=== PATIENT | female | born 1935 | race Caucasian/White ===

== ENCOUNTER 2017-01-27 20:39 | Inpatient (IN) | payer MEDICARE ==
[2017-01-27] MEDS ORDERED: Sodium Chloride 0.9% 1,000 ML IV STA ×2 (20:54→23:36)
[2017-01-27 21:13] LABS: BASO # 0.1 K/uL (0.0-0.2); BASO % 0.3 % (0.0-2.0); EOS # 0.1 K/uL (0.0-0.7); EOS % 0.5 % (0.0-4.0); HEMATOCRIT 40.5 % (34.0-47.0); LYMPH # 1.4 K/uL (1.0-4.3); LYMPH % 5.6 % (20.0-40.0); MEAN CORPUSCULAR HEMOGLOBIN 28.4 pg (27.0-31.0); MEAN CORPUSCULAR HGB CONC 31.5 g/dL (33.0-37.0); MEAN PLATELET VOLUME 7.4 fl (7.2-11.7); NEUT % 89.6 % (50.0-75.0); PLATELET COUNT 310 K/uL (130-400); RED CELL DISTRIBUTION WIDTH 15.6 % (11.5-14.5); WHITE BLOOD COUNT 24.6 K/uL (4.8-10.8)
[2017-01-27 21:22] LABS: BILIRUBIN,TOTAL 0.8 mg/dl (0.2-1.3); CALCIUM 10.1 mg/dL (8.4-10.2); POTASSIUM 4.3 MMOL/L (3.6-5.0); TOTAL PROTEIN 8.9 G/DL (6.3-8.2)
[2017-01-27 21:25] LABS: ALB/GLOB RATIO 1.3 (1.0-2.1)
[2017-01-27 21:58] LABS: TOTAL CELLS COUNTED 100
[2017-01-27 21:59] LABS: NEUTROPHIL 89 % (42-75)
--- NOTE | 2017-01-27 22:08 | ED PDOC ---
HPI: Abdomen Time Seen by Provider: 01/27/17 20:52 Chief Complaint (Nursing): Abdominal Pain Chief Complaint (Provider): epigastric pain, vomiting History Per: Patient, EMS History/Exam Limitations: no limitations Onset/Duration Of Symptoms: Hrs (1), Sudden Onset Outside of [place] travel?: No Current Symptoms Are (Timing): Better Context: Food Severity: Severe Location Of Pain/Discomfort: Epigastric Quality Of Discomfort: Sharp, Cramping Associated Symptoms: Nausea, Vomiting, Diarrhea, Loss Of Appetite, Back Pain Exacerbating Factors: None Alleviating Factors: None Last Bowel Movement: Today Additional Complaint(s): 81yo female c/o sudden onset epigastric abdominal pain associated w several episodes nonbloody vomiting, diarrhea and weakness. ALS paramedics responded found patient w pallor and mild diaphoresis, vomiting, weakness. Mildly hypotensive in field. EKG in field revealed aflutter. Abnormal Vaginal Bleeding: No Past Medical History Reviewed: Historical Data, Nursing Documentation, Vital Signs Vital Signs: Last Vital Signs Temp 97.7 F 01/27/17 20:42 Pulse 115 H 01/27/17 21:02 Resp 18 01/27/17 21:02 BP 110/66 01/27/17 21:02 Pulse Ox 97 01/27/17 23:41 - Medical History PMH: Atrial Fibrillation, CAD, CHF, COPD, HTN, Hypercholesterolemia, Hypothyroidism, Pneumonia Denies: Chronic Kidney Disease - Surgical History Surgical History: Pacemaker - Family History Family History: States: Unknown Family Hx - Living Arrangements Living Arrangements: Alone - Social History Current smoker - smoking cessation education provided: No (quit 20yrs ago) - Home Medications Home Medications: Ambulatory Orders Medication Instructions Recorded Arformoterol [Brovana] 1 puff IH BID 10/02/16 Calcium Carbonate [Calcium] 600 mg PO DAILY 10/02/16 Clonazepam [Klonopin] 5 mg PO DAILY 10/02/16 Dabigatran [Pradaxa] 75 mg PO BID 10/02/16 Levothyroxine [Synthroid] 1 tab PO DAILY 10/02/16 Losartan Potassium [Cozaar] 25 mg PO DAILY 10/02/16 Metoprolol Succinate [Toprol XL] 1.5 tab PO BID 10/02/16 Sulfamethoxazole/Trimethoprim 1 tab PO Q12 10/02/16 [Bactrim DS Tab] diltiaZEM [Cardizem] 360 mg PO DAILY 10/02/16 traZODone [Desyrel] 1 tab PO DAILY 10/02/16 Budesonide [Pulmicort Respules] 0.25 mg INH PRN PRN 01/27/17 Multivit-Min/FA/Lycopen/Lutein 1 tab PO DAILY 01/27/17 [Centrum Silver Tablet] Potassium Chloride [Klor-Con M10] 10 meq PO DAILY 01/27/17 Pravastatin Sodium [Pravachol] 20 mg PO DAILY 01/27/17 Spironolactone [Aldactone] 25 mg PO DAILY 01/27/17 Torsemide [Demadex] 20 mg PO DAILY 01/27/17 - Allergies Allergies/Adverse Reactions: Allergies Allergy/AdvReac Type Severity Reaction Status Date / Time No Known Allergies Allergy Verified 01/27/17 23:36 Review of Systems ROS Statement: Except As Marked, All Systems Reviewed And Found Negative Constitutional: Negative for: Fever, Chills Cardiovascular: Positive for: Chest Pain. Negative for: Palpitations Respiratory: Negative for: Cough, Shortness of Breath Gastrointestinal: Positive for: Nausea, Vomiting, Abdominal Pain, Diarrhea Genitourinary Female: Negative for: Dysuria, Frequency Musculoskeletal: Negative for: Arm Pain, Leg Pain Skin: Negative for: Lesions Neurological: Positive for: Dizziness. Negative for: Weakness, Numbness, Confusion, Headache Psych: Negative for: Anxiety, Depression Physical Exam - Reviewed Nursing Documentation Reviewed: Yes Vital Signs Reviewed: Yes - Physical Exam Appears: Positive for: Well, Non-toxic, No Acute Distress Head Exam: Positive for: ATRAUMATIC, NORMAL INSPECTION, NORMOCEPHALIC Skin: Positive for: Normal Color, Warm, DRY Eye Exam: Positive for: EOMI, Normal appearance, PERRL ENT: Positive for: Normal ENT Inspection Neck: Positive for: Normal, Painless ROM Cardiovascular/Chest: Positive for: Regular Rate, Rhythm Respiratory: Positive for: CNT, Normal Breath Sounds Gastrointestinal/Abdominal: Positive for: Bowel Sounds, Soft, Tenderness (+ epigastric and mid abd tenderness, neg murphys sign), Distended. Negative for: Guarding, Rebound Back: Positive for: Normal Inspection Extremity: Positive for: Normal ROM Neurologic/Psych: Positive for: Alert, Oriented. Negative for: Motor/Sensory Deficits - Laboratory Results Result Diagrams: 01/27/17 21:05 01/27/17 21:05 - ECG O2 Sat by Pulse Oximetry: 97 Pulse Ox Interpretation: Normal - Radiology X-Ray: Interpreted by Me X-Ray Interpretation: Other (chronic appearing changes when compared to 10/17) - Critical Care Total Time (In Min): 45 Comments: pt required immediate and sustained bedside attention given unstable vital signs , requiring multiple advanced diagnostics, stabilization and ICU admission Medical Decision Making Medical Decision Making: workup initiated for epigastric pain. EKG, bloodwork, IVF and antiemetic ordered. Had additional episode vomiting in ED. Abd US reveals gallstone in neck of GB. labs reviewed reveal leukocytosis and worsening renal function as compared to prior visit. Given leukocytosis, CT abd pelv ordered. Family updated on progress and results. FINDINGS: Lower thorax: The heart is enlarged.There is calcification of the mitral annulus.There is streak artifact from pacemaker leads. There is a hiatal hernia. There postsurgical changes in the gastroesophageal junction. There is a Port-A-Cath in the right chest wall. There is a small bore right chest tube, unchanged. There continues to be pleural and parenchymal thickening around the tube. There are fibrotic changes at the lung bases. There is continued nodular scarring in the lingula. There is a small granuloma at the right base. There is dependent atelectasis. ABDOMEN: Liver: unremarkable Gallbladder and bile ducts: unremarkable Pancreas: unremarkable Spleen: unremarkable Adrenals: There is adrenal there is a tiny nonobstructing left renal stone. There are no ureteral stones. Kidneys and ureters: See above. Stomach and bowel: Stomach is incompletely distended. Rotation is normal. Small bowel is dilated to the level of the mid or distal ileum. Distal and terminal ileum are decompressed. Exact site of transition is difficult to identify but appears to be in the low pelvis, images 47-59, series 601. Appendix is unremarkable. Terminal ileum is unremarkable. Colon is incompletely distended which limits evaluation. There is diverticulosis. Appendix: See stomach and bowel PELVIS: Bladder: unremarkable Reproductive: Uterus is atrophic. There are no adnexal masses. ABDOMEN and PELVIS: Intraperitoneal space:There is no free air.There is no significant fluid.There is no pathologic adenopathy. Bones/joints: There is a left hip prosthesis. OsteopeniaThere are degenerative changes in the osseus structures. There is compression fracture at T12. There is compression deformity L3. Soft tissues: There is a small fat containing umbilical hernia. Vasculature: There are vascular calcifications. Lymph nodes: There is no pathologic adenopathy. IMPRESSION: Small bowel obstruction with transition in the low pelvis; no CT findings of appendicitis or diverticulitis; Port-A-Cath in the right chest wall wwith small bore right chest tube, similar finding seen on the prior study; cardiomegaly and atherosclerotic disease; fibrotic changes in the lung bases; gallstones; no acute solid visceral abnormality Additional findings as described above. Thank you for allowing us to participate in the care of your patient. Dictated and Authenticated by: Nessa Lee MD 01/27/2017 11:14 PM Eastern Time ([place] & Jud Lactate 2.0, given clinical and diagnostic findings meets criteria for severe sepsis. D/w loss prevention operations manager medicine Dr Mir, recommends ICU support overnight. D.w surgical coder Tevin. Zosyn initiated after cultures obtained. Dr wall paged 23:46, 00:01. Surg resident in ED 2015am NGT placed by myself and surgical coder, ~200ml yellow non-feculent gastric return. Disposition - Clinical Impression Clinical Impression: Severe sepsis, SBO (small bowel obstruction), Cholelithiasis, UTI (urinary tract infection) - Patient ED Disposition Is Patient to be Admitted: Yes Counseled Patient/Family Regarding: Studies Performed, Diagnosis, Need For Followup - Disposition Disposition Time: 23:00 Condition: STABLE
--- NOTE | 2017-01-27 22:22 | US ---
EXAM: US Abdomen Limited, Right Upper Quadrant CLINICAL HISTORY: 81 years old, female; Pain; Abdominal pain; Epigastric; Additional info: Upper abd pain TECHNIQUE: Real-time ultrasound of the right upper quadrant with image documentation. EXAM DATE/TIME: 01/27/2017 8:55 PM COMPARISON: There are no prior studies for comparison. FINDINGS: Liver: Liver is unremarkable.There is hepatopedal flow in the main portal vein. Gallbladder: Gallbladder is distended with a small shadowing stone but no sludge or wall thickening. Common bile duct: Common bile duct measures 5.2 mm in diameter. Pancreas: Pancreas is partially obscured by bowel gas. Visualized portion is unremarkable. Right kidney: Right kidney is unremarkable. Aorta: Visualized portions of the aorta and inferior vena cava are unremarkable. IMPRESSION: Gallstone, no ductal dilatation Patient was not tender over the gallbladder
[2017-01-27 23:07] LABS: VENOUS BLOOD GAS BASE EXCESS -2.7 mmol/L (0.0-2.0); VENOUS BLOOD GAS PCO2 51 mmHg (40-60); VENOUS BLOOD PH 7.29 (7.32-7.43)
--- NOTE | 2017-01-27 23:15 | CT ---
EXAM: CT Abdomen and Pelvis Without Intravenous Contrast CLINICAL HISTORY: 81 years old, female; Pain; Abdominal pain; Epigastric; Additional info: Upper abd pain leukocytosis. Sent phy. Doc. With request TECHNIQUE: Axial computed tomography images of the abdomen and pelvis without intravenous contrast. This CT exam was performed using one or more of the following dose reduction techniques: automated exposure control, adjustment of the mA and/or kV according to patient size, and/or use of iterative reconstruction technique. Coronal and sagittal reformatted images were created and reviewed. EXAM DATE/TIME: 01/27/2017 9:54 PM COMPARISON: CT - ABD PELVIS PO CONTRAST ONLY 10/02/2016 4:06:45 AM FINDINGS: Lower thorax: The heart is enlarged.There is calcification of the mitral annulus.There is streak artifact from pacemaker leads. There is a hiatal hernia. There postsurgical changes in the gastroesophageal junction. There is a Port-A-Cath in the right chest wall. There is a small bore right chest tube, unchanged. There continues to be pleural and parenchymal thickening around the tube. There are fibrotic changes at the lung bases. There is continued nodular scarring in the lingula. There is a small granuloma at the right base. There is dependent atelectasis. ABDOMEN: Liver: unremarkable Gallbladder and bile ducts: unremarkable Pancreas: unremarkable Spleen: unremarkable Adrenals: There is adrenal there is a tiny nonobstructing left renal stone. There are no ureteral stones. Kidneys and ureters: See above. Stomach and bowel: Stomach is incompletely distended. Rotation is normal. Small bowel is dilated to the level of the mid or distal ileum. Distal and terminal ileum are decompressed. Exact site of transition is difficult to identify but appears to be in the low pelvis, images 47-59, series 601. Appendix is unremarkable. Terminal ileum is unremarkable. Colon is incompletely distended which limits evaluation. There is diverticulosis. Appendix: See stomach and bowel PELVIS: Bladder: unremarkable Reproductive: Uterus is atrophic. There are no adnexal masses. ABDOMEN and PELVIS: Intraperitoneal space:There is no free air.There is no significant fluid.There is no pathologic adenopathy. Bones/joints: There is a left hip prosthesis. OsteopeniaThere are degenerative changes in the osseus structures. There is compression fracture at T12. There is compression deformity L3. Soft tissues: There is a small fat containing umbilical hernia. Vasculature: There are vascular calcifications. Lymph nodes: There is no pathologic adenopathy. IMPRESSION: Small bowel obstruction with transition in the low pelvis; no CT findings of appendicitis or diverticulitis; Port-A-Cath in the right chest wall wwith small bore right chest tube, similar finding seen on the prior study; cardiomegaly and atherosclerotic disease; fibrotic changes in the lung bases; gallstones; no acute solid visceral abnormality Additional findings as described above.
[2017-01-27] MEDS ORDERED: Piperacillin/Tazobact 4.5 GM in Sodium Chloride 0.9% 100 ML IVPB STA (23:17)
--- NOTE | 2017-01-28 01:29 | CP.PCM.CON ---
<Jose Kimbrough - Last Filed: 01/28/17 01:22> History of Present Illness - History of Present Illness History of Present Illness: SURGERY CONSULT NOTE FOR DR. CASTANEDA 81F presents to [facility] with abdominal pain that began earlier this morning. Patient states the pain was epigastric in nature. Patient had a life alert button that she pushed and was brought to the ED. She states while at home she did experience nausea and vomited a large amount of fluids and food. She had never had these symptoms before. She states she had diarrhea earlier in the morning and denies having flatus since then. She denies and fevers or chills , shortness of breath. Patient is now having diarrhea in the ED an hour after being seen. Patient is on Pradaxa, blood thinner. PMH: A-fib, HTN, COPD, PNA, PSH: Pacemaker, portacath?, left hip replacement, denies any abdominal surgery Social: past smoker for decades, denies alcohol, and illicit drugs Allergies: NKDA Past Patient History - Past Medical History & Family History Past Medical History?: Yes - Past Social History Smoking Status: Former Smoker - CARDIAC Hx Atrial Fibrillation: Yes Hx Congestive Heart Failure: Yes Hx Hypercholesterolemia: Yes Hx Hypertension: Yes Hx Pacemaker: Yes - PULMONARY Hx Chronic Obstructive Pulmonary Disease (COPD): Yes Hx Pneumonia: Yes - NEUROLOGICAL Hx Neurological Disorder: No - HEENT Hx HEENT Problems: No - RENAL Hx Chronic Kidney Disease: No - ENDOCRINE/METABOLIC Hx Hypothyroidism: Yes - HEMATOLOGICAL/ONCOLOGICAL Hx Blood Disorders: No - INTEGUMENTARY Hx Dermatological Problems: No - MUSCULOSKELETAL/RHEUMATOLOGICAL Hx Musculoskeletal Disorders: Yes Hx Falls: Yes - GASTROINTESTINAL Hx Gastrointestinal Disorders: No - GENITOURINARY/GYNECOLOGICAL Hx Genitourinary Disorders: No - PSYCHIATRIC Hx Psychophysiologic Disorder: No Hx Substance Use: No - SURGICAL HISTORY Hx Surgeries: Yes Hx Joint Replacement: Yes (left hip x2 yrs ago) Other/Comment: Pacemaker - ANESTHESIA Hx Anesthesia: Yes Hx Anesthesia Reactions: No Hx Malignant Hyperthermia: No Meds Allergies/Adverse Reactions: Allergies Allergy/AdvReac Type Severity Reaction Status Date / Time No Known Allergies Allergy Verified 01/28/17 03:02 - Medications Medications: Current Medications Sodium Chloride (Sodium Chloride 0.9%) 1,000 mls @ 125 mls/hr IV .Q8H STA Stop: 01/28/17 07:35 Last Admin: 01/28/17 00:40 Dose: 125 mls/hr Physical Exam - Constitutional Appears: Non-toxic, No Acute Distress - Head Exam Head Exam: ATRAUMATIC - Eye Exam Eye Exam: EOMI, PERRL - ENT Exam ENT Exam: Mucous Membranes Dry - Respiratory Exam Respiratory Exam: Clear to Auscultation Bilateral, NORMAL BREATHING PATTERN - Cardiovascular Exam Cardiovascular Exam: REGULAR RHYTHM, +S1, +S2 - GI/Abdominal Exam GI & Abdominal Exam: Distended (mild-moderately distended), Soft. absent: Firm , Guarding, Rebound, Rigid, Tenderness - Extremities Exam Extremities exam: Negative for: pedal edema, tenderness - Neurological Exam Neurological exam: Alert, Oriented x3 - Psychiatric Exam Psychiatric exam: Normal Affect, Normal Mood - Skin Skin Exam: Dry, Intact, Normal Color, Warm Results - Vital Signs Recent Vital Signs: Last Vital Signs Temp 98.1 F 01/28/17 01:19 Pulse 103 H 01/28/17 01:19 Resp 18 01/28/17 01:19 BP 102/56 L 01/28/17 01:19 Pulse Ox 97 01/28/17 01:19 - Labs Result Diagrams: 01/27/17 21:05 01/27/17 21:05 Assessment & Plan - Assessment and Plan (Free Text) Assessment: 81F presents with abdominal pain likely 2/2 SBO US: Gallbladder distension with stone CT: SBO, transition point in lower pelvis, right chest wall portacath, , cardiomegaly , artherosclerosis, diverticulosis Plan: - conservative management - NPO, IVF, ABx, pain control - NGT is placed - serial abdominal exams - continue to monitor bowel function - f/u AM CBC/CMP, f/u INR/PTT - f/u stool cultures Discussed with Dr. Leonel Kimbrough, PGY1 <Roosevelt Castaneda - Last Filed: 02/01/17 18:32> Meds - Medications Medications: Current Medications Digoxin (Lanoxin) 0.25 mg PO DAILY NIC Docusate Sodium (Colace) 100 mg PO BID NIC Last Admin: 02/01/17 16:52 Dose: 100 mg Piperacillin Sod/Tazobactam (Sod 2.25 gm/ Sodium Chloride) 100 mls @ 100 mls/ hr IVPB Q6 NIC Last Admin: 02/01/17 16:53 Dose: 100 mls/hr Ondansetron HCl (Zofran Inj) 4 mg IVP Q6 PRN PRN Reason: Nausea/Vomiting Last Admin: 01/31/17 12:47 Dose: 4 mg Pantoprazole Sodium (Protonix Inj) 40 mg IVP DAILY [facility] Last Admin: 02/01/17 10:25 Dose: 40 mg Results - Vital Signs Recent Vital Signs: Last Vital Signs Temp 98.1 F 02/01/17 16:00 Pulse 78 02/01/17 18:00 Resp 18 02/01/17 18:00 BP 120/69 02/01/17 18:00 Pulse Ox 99 02/01/17 18:00 - Labs Result Diagrams: 01/31/17 05:30 01/31/17 05:30 Attending/Attestation - Attestation I have personally seen and examined this patient.: Yes I have fully participated in the care of the patient.: Yes I have reviewed all pertinent clinical information: Yes Notes (Text): 02/01/17 18:31 Pt was seen and examined at bedside on 01/28/17 Agree with above note and assessment Pt with PSBO and Ieus with severe dehydration NPO, NG tube to LIS Labs and radiology reviewed C.w current mx Plan belle pt and ICU attending in detail .
[2017-01-28 02:01] LABS: VENOUS BLOOD GAS BASE EXCESS -1.7 mmol/L (0.0-2.0); VENOUS BLOOD GAS MODE ROOM AIR; VENOUS BLOOD GAS PCO2 45 mmHg (40-60); VENOUS BLOOD PH 7.34 (7.32-7.43)
[2017-01-28 02:03] LABS: RBC URINE < 1 /hpf (0-3); URINE BACTERIA RARE (<OCC); URINE BILIRUBIN NEGATIVE (NEGATIVE); URINE BLOOD SMALL (NEGATIVE); URINE COLOR YELLOW (YELLOW); URINE GLUCOSE (UA) NEG (Normal); URINE KETONE NEGATIVE (NEGATIVE); URINE LEUKOCYTE ESTERASE TRACE Leu/uL (Negative); URINE PROTEIN NEGATIVE (NEGATIVE); URINE UROBILINOGEN 0.2-1.0 mg/dL (0.2-1.0); WBC URINE 1 /hpf (0-5)
[2017-01-28] MEDS ORDERED: Sodium Chloride 0.9% 1,000 ML IV SCH (03:00)
--- NOTE | 2017-01-28 03:08 | CP.PCM.CON ---
History of Present Illness - History of Present Illness History of Present Illness: Attending: Dr Mir PCP: Dr Enriquez Reason for Consult: Critical care management Chief Complaint: Epigastric pain/ Vomiting/Diarrhea HPI: 81 years old female living alone with hx of COPD, A Fib on Pradaxa, Permanent Pacemaker, and Diverticulosis, comes with sudden unset of sharp crampy epigastric pain radiating up the retrosternal region and associated with vomiting, diarrhea and loss of appetite. EMS found the patient diaphoretic , weak and hypotensive. The patient referred no coughing, Fever PMH: Atrial Fibrillation, CAD, CHF, COPD, HTN, HLD, Hypothyroidism, Pneumonia, Diverticulosis; Cholelithiasis; Left renal stone, compression fx T12 and L3 PSH; Pacemaker placement; Pleurex in left lung for drainage of Pleural effusion ; bilateral Hip replacement SH: Former Smoker; Quit Alcohol many years ago; No illegal drug use; Lives alone FH: unknown family hx Allergies: NKDA Review of Systems - Constitutional Constitutional: Fatigue. absent: Chills, Fever, Headache, Lethargy - EENT Eyes: Requires Corrective Lenses. absent: Diplopia, Floaters, Sees Flashes Ears: absent: Decreased Hearing, Ear Discharge, Ear Pain, Tinnitus Nose/Mouth/Throat: absent: Epistaxis, Nasal Congestion, Nasal Discharge, Sinus Pain, Sinus Pressure - Cardiovascular Cardiovascular: absent: Chest Pain, Dyspnea, Edema - Respiratory Respiratory: absent: Cough, Dyspnea, Wheezing - Gastrointestinal Gastrointestinal: Abdominal Pain, Diarrhea, Nausea, Vomiting - Genitourinary Genitourinary: absent: Dysuria, Flank Pain, Hematuria, Urinary Frequency - Musculoskeletal Musculoskeletal: Arthralgias, Muscle Weakness - Integumentary Integumentary: absent: Pruritus, Rash, Skin Ulcer, Sores, Striae, Swelling - Neurological Neurological: Weakness. absent: Confusion, Dizziness, Headaches, Memory Loss - Psychiatric Psychiatric: Anxiety. absent: Depression, Panic Attacks - Endocrine Endocrine: absent: Palpitations, Polydipsia, Polyphagia, Polyuria - Hematologic/Lymphatic Hematologic: absent: Easy Bleeding, Easy Bruising Past Patient History - Past Medical History & Family History Past Medical History?: Yes - Past Social History Smoking Status: Former Smoker Chewing Tobacco Use: No Cigar Use: No Alcohol: None Drugs: Denies Home Situation {Lives}: Alone - CARDIAC Hx Atrial Fibrillation: Yes Hx Congestive Heart Failure: Yes Hx Hypercholesterolemia: Yes Hx Hypertension: Yes Hx Pacemaker: Yes - PULMONARY Hx Chronic Obstructive Pulmonary Disease (COPD): Yes Hx Pneumonia: Yes - NEUROLOGICAL Hx Neurological Disorder: No - HEENT Hx HEENT Problems: No - RENAL Hx Chronic Kidney Disease: No - ENDOCRINE/METABOLIC Hx Hypothyroidism: Yes - HEMATOLOGICAL/ONCOLOGICAL Hx Blood Disorders: No - INTEGUMENTARY Hx Dermatological Problems: No - MUSCULOSKELETAL/RHEUMATOLOGICAL Hx Musculoskeletal Disorders: Yes Hx Falls: Yes - GASTROINTESTINAL Hx Gastrointestinal Disorders: No - GENITOURINARY/GYNECOLOGICAL Hx Genitourinary Disorders: No - PSYCHIATRIC Hx Anxiety: Yes Hx Substance Use: No - SURGICAL HISTORY Hx Surgeries: Yes Hx Joint Replacement: Yes (left hip x2 yrs ago) Other/Comment: Pacemaker/ Pleurex at right chest - ANESTHESIA Hx Anesthesia: Yes Hx Anesthesia Reactions: No Hx Malignant Hyperthermia: No Meds Allergies/Adverse Reactions: Allergies Allergy/AdvReac Type Severity Reaction Status Date / Time No Known Allergies Allergy Verified 01/28/17 03:02 - Medications Medications: Current Medications Sodium Chloride (Sodium Chloride 0.9%) 1,000 mls @ 125 mls/hr IV .Q8H STA Stop: 01/28/17 07:35 Last Admin: 01/28/17 00:40 Dose: 125 mls/hr Piperacillin Sod/Tazobactam (Sod 2.25 gm/ Sodium Chloride) 100 mls @ 100 mls/ hr IVPB Q6 NIC Sodium Chloride (Sodium Chloride 0.9%) 1,000 mls @ 125 mls/hr IV .Q8H NIC Stop: 01/29/17 01:46 Sodium Chloride (Sodium Chloride 0.9%) 1,000 mls @ 1,000 mls/hr IV .Q1H NIC Stop: 01/29/17 02:57 Morphine Sulfate (Morphine) 4 mg IVP Q4 PRN PRN Reason: Pain, moderate (4-7) Pantoprazole Sodium (Protonix Inj) 40 mg IVP DAILY [facility] Physical Exam - Constitutional Appears: No Acute Distress - Head Exam Head Exam: ATRAUMATIC, NORMAL INSPECTION, NORMOCEPHALIC - Eye Exam Eye Exam: EOMI, Normal appearance Pupil Exam: NORMAL ACCOMODATION, PERRL - ENT Exam ENT Exam: Mucous Membranes Moist, Normal Exam, Normal External Ear Exam, Normal Oropharynx - Neck Exam Neck exam: Positive for: Full Rom, Normal Inspection. Negative for: Lymphadenopathy, Tenderness - Respiratory Exam Respiratory Exam: Clear to Auscultation Bilateral, Rales. absent: Rhonchi, Wheezes Additional comments: Rales at left base - Cardiovascular Exam Cardiovascular Exam: Irregular Rhythm, +S1, +S2 - GI/Abdominal Exam GI & Abdominal Exam: Diminished Bowel Sounds, Soft - Rectal Exam Rectal Exam: Deferred - Extremities Exam Extremities exam: Positive for: full ROM, normal inspection, pedal pulses present. Negative for: calf tenderness, pedal edema - Back Exam Back exam: NORMAL INSPECTION. absent: CVA tenderness (L), CVA tenderness (R) - Neurological Exam Neurological exam: Alert, CN II-XII Intact, Oriented x3, Reflexes Normal - Psychiatric Exam Psychiatric exam: Normal Affect, Normal Mood - Skin Skin Exam: Dry, Intact, Normal Color, Warm Results - Vital Signs Recent Vital Signs: Last Vital Signs Temp 98.2 F 01/28/17 02:43 Pulse 122 H 01/28/17 02:43 Resp 18 01/28/17 02:43 BP 81/56 L 01/28/17 02:43 Pulse Ox 98 01/28/17 02:43 - Labs Result Diagrams: 01/27/17 21:05 01/27/17 21:05 Labs: Laboratory Results - last 24 hr 01/27/17 01/28/17 23:45 01:53 pO2 26 L VBG pH 7.34 VBG pCO2 45 VBG HCO3 22.1 VBG Total CO2 25.7 VBG O2 Sat (Calc) 42.8 VBG Base Excess -1.7 L VBG Potassium 4.4 Sodium 135.0 Chloride 103.0 Glucose 127 H Lactate 1.5 FiO2 21.0 Venous Blood Potassium 4.4 Urine Color Yellow Urine Clarity Clear Urine pH 6.0 Ur Specific [place] 1.014 Urine Protein Negative Urine Glucose (UA) Neg Urine Ketones Negative Urine Blood Small Urine Nitrate Negative Urine Bilirubin Negative Urine Urobilinogen 0.2-1.0 Ur Leukocyte Esterase Trace Urine RBC (Auto) < 1 Urine Microscopic WBC 1 Ur Squamous Epith Cells 1 Urine Bacteria Rare - Imaging and Cardiology US - abdomen Status: Report reviewed by me Additional comment: Right Upper Quadrant: FINDINGS: Liver: Liver is unremarkable.There is hepatopedal flow in the main portal vein. Gallbladder: Gallbladder is distended with a small shadowing stone but no sludge or wall thickening. Common bile duct: Common bile duct measures 5.2 mm in diameter. Pancreas: Pancreas is partially obscured by bowel gas. Visualized portion is unremarkable. Right kidney: Right kidney is unremarkable. Aorta: Visualized portions of the aorta and inferior vena cava are unremarkable. IMPRESSION: Gallstone, no ductal dilatation Patient was not tender over the gallbladder CT scan - abdomen Status: Report reviewed by me Additional comment: FINDINGS: Lower thorax: The heart is enlarged.There is calcification of the mitral annulus.There is streak artifact from pacemaker leads. There is a hiatal hernia. There postsurgical changes in the gastroesophageal junction. There is a Port-A-Cath in the right chest wall. There is a small bore right chest tube, unchanged. There continues to be pleural and parenchymal thickening around the tube. There are fibrotic changes at the lung bases. There is continued nodular scarring in the lingula. There is a small granuloma at the right base. There is dependent atelectasis. ABDOMEN: Liver: unremarkable Gallbladder and bile ducts: unremarkable Pancreas: unremarkable Spleen: unremarkable Adrenals: There is adrenal there is a tiny nonobstructing left renal stone. There are no ureteral stones. Kidneys and ureters: See above. Stomach and bowel: Stomach is incompletely distended. Rotation is normal. Small bowel is dilated to the level of the mid or distal ileum. Distal and terminal ileum are decompressed. Exact site of transition is difficult to identify but appears to be in the low pelvis, images 47-59, series 601. Appendix is unremarkable. Terminal ileum is unremarkable. Colon is incompletely distended which limits evaluation. There is diverticulosis. Appendix: See stomach and bowel PELVIS: Bladder: unremarkable Reproductive: Uterus is atrophic. There are no adnexal masses. ABDOMEN and PELVIS: Intraperitoneal space:There is no free air.There is no significant fluid.There is no pathologic adenopathy. Bones/joints: There is a left hip prosthesis. OsteopeniaThere are degenerative changes in the osseus structures. There is compression fracture at T12. There is compression deformity L3. Soft tissues: There is a small fat containing umbilical hernia. Vasculature: There are vascular calcifications. Lymph nodes: There is no pathologic adenopathy. IMPRESSION: Small bowel obstruction with transition in the low pelvis; no CT findings of appendicitis or diverticulitis; Port-A-Cath in the right chest wall wwith small bore right chest tube, similar finding seen on the prior study; cardiomegaly and atherosclerotic disease; fibrotic changes in the lung bases; gallstones; no acute solid visceral abnormality Chest x-ray Status: Image reviewed by me Additional comment: Cardiomegaly with bibasal infiltrates Assessment & Plan - Assessment and Plan (Free Text) Assessment: #. Small Bowel Obstruction #. Severe sepsis #. A Fib with rapid response #. COPD on Home Oxygen # Chronic CHF #. Hypothyroidism Plan: 81 years old female living alone with hx of COPD, A Fib on Pradaxa, Permanent Pacemaker, and Diverticulosis, comes with sudden unset epigastric pain associated with vomiting, diarrhea. EMS found the patient diaphoretic , weak and hypotensive. #. Small Bowel Obstruction - consult Surgery Dr Castaneda - NPO - NG tube inserted in ED - Antibiotics Zosyn started in ED - IV Fluids #. Severe sepsis - Consult ID Dr Ramos - IV Fluids/ antibiotics - Repeated VBG shows a normal Lactic acid #. A Fib with rapid response - consult cardiology Dr Ewing - Metoprolol 2.5mg IV Q6Hrs - Hold Pradaxa #. COPD on Home Oxygen - Duoneb PRN # Chronic CHF - Stable - Restart Coozar #. Code Status: Full #. Hypothyroidism - Synthroid. - Date & Time Date: 01/28/17 Time: 03:08
[2017-01-28] MEDS ORDERED: Sodium Chloride 0.9% 500 ML IV ONE ×2 (05:59→08:53)
[2017-01-28] MEDS ORDERED: DOPamine 400mg/250ml D5W 400 MG/250 ML BAG IV ONE (06:00)
--- NOTE | 2017-01-28 06:04 | CP.PCM.PCO ---
Physician Communication Note - Physician Communication Note Physician Communication Note: Attempt at right femoral vein TLC unsuccessful.
[2017-01-28 07:01] LABS: BASO % 0.1 % (0.0-2.0); HEMATOCRIT 32.2 % (34.0-47.0); LYMPH # 1.3 K/uL (1.0-4.3); LYMPH % 10.4 % (20.0-40.0); MEAN CELL VOLUME 90.9 fl (81.0-99.0); MEAN CORPUSCULAR HEMOGLOBIN 28.9 pg (27.0-31.0); MEAN CORPUSCULAR HGB CONC 31.8 g/dL (33.0-37.0); MEAN PLATELET VOLUME 7.4 fl (7.2-11.7); MONO # 0.6 K/uL (0.0-0.8); MONO % 4.5 % (0.0-10.0); NEUT # 10.6 K/uL (1.8-7.0); RED CELL DISTRIBUTION WIDTH 15.3 % (11.5-14.5); WHITE BLOOD COUNT 12.4 K/uL (4.8-10.8)
[2017-01-28 07:07] LABS: PARTIAL THROMBOPLASTIN TIME 36.8 SECONDS (23.3-32.5)
[2017-01-28 07:14] LABS: ALB/GLOB RATIO 1.2 (1.0-2.1); BILIRUBIN,TOTAL 0.9 mg/dl (0.2-1.3); CALCIUM 8.4 mg/dL (8.4-10.2); POTASSIUM 4.2 MMOL/L (3.6-5.0); TOTAL PROTEIN 6.3 G/DL (6.3-8.2)
--- NOTE | 2017-01-28 08:06 | CARD ---
APPROVED REPORT EKG Measurement Heart [id number] <Conclusion> Atrial fibrillation with rapid ventricular response (Intermittently P waves are seen) ST & T wave abnormality, consider inferior ischemia Abnormal ECG
[2017-01-28] MEDS: Sodium Chloride 0.9% 1,000 ML IV SCH (08:55)
--- NOTE | 2017-01-28 10:15 | RAD ---
HISTORY: SOB COMPARISON: No prior. FINDINGS: LUNGS: No active pulmonary disease. PLEURA: No significant pleural effusion identified, no pneumothorax apparent. CARDIOVASCULAR: Normal. Atherosclerotic aorta. Pacemaker leads in place. OSSEOUS STRUCTURES: No significant abnormalities. VISUALIZED UPPER ABDOMEN: Normal. OTHER FINDINGS: None. IMPRESSION: No active disease.
[2017-01-28] MEDS ORDERED: Digoxin 500 mcg/2ml (0.5 mg/2ml) Inj IVP ONE ×2 (12:52→15:29)
--- NOTE | 2017-01-28 12:59 | CP.PCM.CON ---
History of Present Illness - History of Present Illness History of Present Illness: 81 y/o w/f admitted with abdominal pain HPI: 81 years old female living alone with hx of COPD, A Fib on Pradaxa, Permanent Pacemaker, and Diverticulosis, comes with sudden unset of sharp crampy epigastric pain radiating up the retrosternal region and associated with vomiting, diarrhea and loss of appetite. EMS found the patient diaphoretic , weak and hypotensive. She denies chest pains PMH: Atrial Fibrillation, CAD, CHF, COPD, HTN, HLD, Hypothyroidism, Pneumonia, Diverticulosis; Cholelithiasis; Left renal stone, compression fx T12 and L3 PSH; Pacemaker placement, bilateral Hip replacement EKG: AF with RVR BNP: 3930 Troponin: neg WBC: 24,600 Past Patient History - Past Medical History & Family History Past Medical History?: Yes - Past Social History Smoking Status: Former Smoker Chewing Tobacco Use: No Cigar Use: No Alcohol: None Drugs: Denies Home Situation {Lives}: Alone - CARDIAC Hx Atrial Fibrillation: Yes Hx Congestive Heart Failure: Yes Hx Hypercholesterolemia: Yes Hx Hypertension: Yes Hx Pacemaker: Yes - PULMONARY Hx Chronic Obstructive Pulmonary Disease (COPD): Yes Hx Pneumonia: Yes - NEUROLOGICAL Hx Neurological Disorder: No - HEENT Hx HEENT Problems: No - RENAL Hx Chronic Kidney Disease: No - ENDOCRINE/METABOLIC Hx Hypothyroidism: Yes - HEMATOLOGICAL/ONCOLOGICAL Hx Blood Disorders: No - INTEGUMENTARY Hx Dermatological Problems: No - MUSCULOSKELETAL/RHEUMATOLOGICAL Hx Musculoskeletal Disorders: Yes Hx Falls: Yes - GASTROINTESTINAL Hx Gastrointestinal Disorders: No - GENITOURINARY/GYNECOLOGICAL Hx Genitourinary Disorders: No - PSYCHIATRIC Hx Anxiety: Yes Hx Substance Use: No - SURGICAL HISTORY Hx Surgeries: Yes Hx Joint Replacement: Yes (left hip x2 yrs ago) Other/Comment: Pacemaker/ Pleurex at right chest - ANESTHESIA Hx Anesthesia: Yes Hx Anesthesia Reactions: No Hx Malignant Hyperthermia: No Meds Allergies/Adverse Reactions: Allergies Allergy/AdvReac Type Severity Reaction Status Date / Time No Known Allergies Allergy Verified 01/28/17 03:02 - Medications Medications: Current Medications Digoxin (Lanoxin) 0.5 mg IVP ONCE ONE Stop: 01/28/17 12:53 Piperacillin Sod/Tazobactam (Sod 2.25 gm/ Sodium Chloride) 100 mls @ 100 mls/ hr IVPB Q6 NIC Last Admin: 01/28/17 09:31 Dose: 100 mls/hr Sodium Chloride (Sodium Chloride 0.9%) 1,000 mls @ 125 mls/hr IV .Q8H [facility] Stop: 01/29/17 01:46 Sodium Chloride (Sodium Chloride 0.9%) 1,000 mls @ 1,000 mls/hr IV .Q1H [facility] Stop: 01/29/17 02:57 Last Admin: 01/28/17 02:50 Dose: 1,000 mls/hr Morphine Sulfate (Morphine) 4 mg IVP Q4 PRN PRN Reason: Pain, moderate (4-7) Pantoprazole Sodium (Protonix Inj) 40 mg IVP DAILY [facility] Last Admin: 01/28/17 09:11 Dose: 40 mg Results - Vital Signs Recent Vital Signs: Last Vital Signs Temp 98.3 F 01/28/17 12:00 Pulse 152 H 01/28/17 12:00 Resp 15 01/28/17 12:00 BP 84/57 L 01/28/17 12:00 Pulse Ox 92 L 01/28/17 12:00 - Labs Result Diagrams: 01/28/17 05:45 01/28/17 05:45 Labs: Laboratory Results - last 24 hr 01/27/17 01/28/17 01/28/17 23:45 01:53 05:45 WBC RBC Hgb Hct MCV MCH MCHC RDW Plt Count MPV Neut % (Auto) Lymph % (Auto) [place] % (Auto) Eos % (Auto) Baso % (Auto) Neut # Lymph # [place] # Eos # Baso # PT 14.7 H INR 1.41 H APTT 36.8 H pO2 26 L VBG pH 7.34 VBG pCO2 45 VBG HCO3 22.1 VBG Total CO2 25.7 VBG O2 Sat (Calc) 42.8 VBG Base Excess -1.7 L VBG Potassium 4.4 Sodium 135.0 Chloride 103.0 Glucose 127 H Lactate 1.5 FiO2 21.0 Potassium Carbon Dioxide Anion Gap BUN Creatinine Est GFR ( Amer) Est GFR (Non-Af Amer) Random Glucose Calcium Total Bilirubin AST ALT Alkaline Phosphatase Total Protein Albumin Globulin Albumin/Globulin Ratio Venous Blood Potassium 4.4 Urine Color Yellow Urine Clarity Clear Urine pH 6.0 Ur Specific [place] 1.014 Urine Protein Negative Urine Glucose (UA) Neg Urine Ketones Negative Urine Blood Small Urine Nitrate Negative Urine Bilirubin Negative Urine Urobilinogen 0.2-1.0 Ur Leukocyte Esterase Trace Urine RBC (Auto) < 1 Urine Microscopic WBC 1 Ur Squamous Epith Cells 1 Urine Bacteria Rare 01/28/17 01/28/17 05:45 05:45 WBC 12.4 H RBC 3.54 L Hgb 10.2 L D Hct 32.2 L MCV 90.9 MCH 28.9 MCHC 31.8 L RDW 15.3 H Plt Count 230 MPV 7.4 Neut % (Auto) 85.0 H Lymph % (Auto) 10.4 L [place] % (Auto) 4.5 Eos % (Auto) 0.0 Baso % (Auto) 0.1 Neut # 10.6 H Lymph # 1.3 [place] # 0.6 Eos # 0.0 Baso # 0.0 PT INR APTT pO2 VBG pH VBG pCO2 VBG HCO3 VBG Total CO2 VBG O2 Sat (Calc) VBG Base Excess VBG Potassium Sodium 142 Chloride 108 H Glucose Lactate FiO2 Potassium 4.2 Carbon Dioxide 20 L Anion Gap 18 BUN 55 H Creatinine 1.2 Est GFR ( Amer) 52 Est GFR (Non-Af Amer) 43 Random Glucose 102 Calcium 8.4 Total Bilirubin 0.9 AST 30 ALT 25 Alkaline Phosphatase 77 Total Protein 6.3 Albumin 3.4 L D Globulin 2.9 Albumin/Globulin Ratio 1.2 Venous Blood Potassium Urine Color Urine Clarity Urine pH Ur Specific [place] Urine Protein Urine Glucose (UA) Urine Ketones Urine Blood Urine Nitrate Urine Bilirubin Urine Urobilinogen Ur Leukocyte Esterase Urine RBC (Auto) Urine Microscopic WBC Ur Squamous Epith Cells Urine Bacteria Assessment & Plan (1) Cholelithiasis Status: Acute (2) SBO (small bowel obstruction) Status: Acute (3) Severe sepsis Status: Acute (4) Afib Assessment and Plan: Pt is tachycardic will give a dose of digoxin to help control the HR Status: Acute
--- NOTE | 2017-01-28 16:15 | CP.CCUPN ---
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 Dopamine ongoing, unsuccessful attempts noted at obtaining central venous access. Dopamine at 6 mcg/kg/min. No further vomiting reported, NGT placed, with approx. 125 ml bilious fluid output. Rapid HRs noted on Dopamine, Digoxin given by Cardio already. Afebrile, no high fever spikes; BP 84/60 with levels as low as 60/46 earlier, HR 130-150s on Dopamine, RR 15, SPO2 92% on nasal oxygen. 24H I/O's= 1985/ 200ml ROS: as above, otherwise unobtainable, but no other pertinent negs or positives on 10 system review. PMFSH: all nursing and historical notes reviewed, no new pertinent data relevant to current problems. No other distress noted: EXAM- HEENT: no icterus, pupils equal and reactive NECK: no visible JVD, supple, carotids equal upstroke bilat/no bruits CHEST: decreased BS bases, no wheezes HEART: regular, distant, S1S2, no murmur audible, no rubs. ABD: soft, no increased distention, no focal tenderness, no HSM. BS hypoactive , EXT: no peripheral/ digital cyanosis, no calf tenderness or palpable cords, distal pulses intact and symmetrical NEURO: confused, disoriented, not interactive; no gross focal motor deficits SKIN: no rashes LABS: WBC= 12.4 HGB= 10.2 PLTs= 230K INR= 1.41, PTT= 36.8 7.34/45/26 with 42.8% satn on VBG, Lactate= 1.5 Na= 142 K= 4.2 HCO3= 20 BUN/Cr= 55/1.2 BS= 102 Trops none ordered. CXR: (my interp) chronic interstitial changes RLL, small bore catheter seen traversing R basilar lung area. Even smaller catheter seen traversing along outer apical lung periphery area, ending in an unforeseen catheter port that is not visualizable. Dual pacer lead PPM seen overlying L chest. EKG: on admission- A fib 103/min, T inversions inferior leads -- essentially same from Oct 2016 study. MAJOR PROBLEMS NOW: 1. Chronic A fib with RVR , on Pradaxa 2. Hypovolemic shock, r/o Severe Sepsis 3. SBO 4. Azotemia / Dehydration 5. Chronic R Pleural Effusion 6. Hypothyroidism on THRT PLAN: 1. More Digoxin now, aware of increase in BUN/Cr values. If still rapid after additional fluid challenge and if unable to wean off Dopamine, will try further rate control with Amiodarone. She has been on Pradaxa. 2. SBO mgmt as per Genl Surgery. 3. Empiric abx coverage with Zosyn noted. 4. Home antihypertensive on hold: Cardizem, Losartan, Toprol XL, Aldactone, Torsemide. 5. Stop Other NETWORK DIRECTOR acting meds: Klonapin, Desyrel 6. Follow serial Lactates with any ongoing hypotension.
[2017-01-29] MEDS: Sodium Chloride 0.9% 1,000 ML IV SCH (01:35)
[2017-01-29 05:57] LABS: T4 7.1 ug/dl (5.5-11.0)
[2017-01-29 06:11] LABS: THYROID STIMULATING HORMONE 0.28 mIU/ML (0.46-4.68)
[2017-01-29] MEDS ORDERED: DOPamine 400mg/250ml D5W 400 MG/250 ML BAG IV ONE (07:11)
[2017-01-29 08:11] LABS: EOS # 1.4 K/uL (0.0-0.7); HEMATOCRIT 37.4 % (34.0-47.0); LYMPH # 1.2 K/uL (1.0-4.3); LYMPH % 13.3 % (20.0-40.0); MEAN CORPUSCULAR HEMOGLOBIN 28.8 pg (27.0-31.0); MEAN CORPUSCULAR HGB CONC 31.6 g/dL (33.0-37.0); MEAN PLATELET VOLUME 7.6 fl (7.2-11.7); MONO # 0.7 K/uL (0.0-0.8); MONO % 7.1 % (0.0-10.0); NEUT # 6.1 K/uL (1.8-7.0); NEUT % 64.6 % (50.0-75.0); NRBC % 0.1 % (0.0-0.0); RED CELL DISTRIBUTION WIDTH 15.1 % (11.5-14.5); WHITE BLOOD COUNT 9.4 K/uL (4.8-10.8)
[2017-01-29 08:26] LABS: ALB/GLOB RATIO 1.1 (1.0-2.1); ALKALINE PHOSPHATASE 87 U/L (38-126); ALT/SGPT 22 U/L (9-52); AST/SGOT 25 U/L (14-36); BILIRUBIN,TOTAL 0.7 mg/dl (0.2-1.3); BLOOD UREA NITROGEN 19 mg/dl (7-17); CALCIUM 9.4 mg/dL (8.4-10.2); CARBON DIOXIDE 21 mmol/L (22-30); CHLORIDE 109 mmol/L (98-107); GFR AFRICAN-AMERICAN > 60; GLUCOSE,RANDOM 92 mg/dL (65-105); POTASSIUM 3.4 MMOL/L (3.6-5.0); SODIUM 144 mmol/l (132-148); TOTAL PROTEIN 6.9 G/DL (6.3-8.2)
--- NOTE | 2017-01-29 08:38 | CP.PCM.PN ---
Subjective - Date & Time of Evaluation Date of Evaluation: 01/29/17 Time of Evaluation: 08:42 - Subjective Subjective: AWAKE AND ALERT NGT IN PLACE STILL DRAINING BILOUS FLUID DENIES ABDOMINAL PAINS NO BM TODAY NO NAUSEA/VOMITING TODAY BP IMPROVED Objective - Vital Signs/Intake and Output Vital Signs (last 24 hours): Temp Pulse Resp BP Pulse Ox 98.3 F 113 H 12 109/75 92 L 01/29/17 08:00 01/29/17 08:00 01/29/17 08:00 01/29/17 08:00 01/29/17 08:00 Intake and Output: 01/29/17 01/29/17 06:59 18:59 Intake Total 1700 Output Total 700 Balance 1000 - Medications Medications: Current Medications Piperacillin Sod/Tazobactam (Sod 2.25 gm/ Sodium Chloride) 100 mls @ 100 mls/ hr IVPB Q6 NIC Last Admin: 01/29/17 03:38 Dose: 100 mls/hr Amiodarone HCl 150 mg/ (Dextrose) 103 mls @ 618 mls/hr IVPB ONCE ONE; 15 MG/MIN PRN Reason: Protocol Stop: 01/29/17 08:42 Amiodarone HCl 900 mg/ (Dextrose) 518 mls @ 34.53 mls/hr IVPB .Q15H1M NCI; 1 MG /MIN PRN Reason: Protocol Morphine Sulfate (Morphine) 4 mg IVP Q4 PRN PRN Reason: Pain, moderate (4-7) Pantoprazole Sodium (Protonix Inj) 40 mg IVP DAILY [facility] Last Admin: 01/28/17 09:11 Dose: 40 mg - Labs Labs: 01/29/17 08:07 01/29/17 08:07 PT 14.7 SECONDS (9.6-11.2) H 01/28/17 05:45 INR 1.41 (0.92-1.08) H 01/28/17 05:45 APTT 36.8 SECONDS (23.3-32.5) H 01/28/17 05:45 - Constitutional Appears: No Acute Distress - Head Exam Head Exam: ATRAUMATIC, NORMAL INSPECTION, NORMOCEPHALIC - Eye Exam Eye Exam: EOMI, Normal appearance, PERRL Pupil Exam: NORMAL ACCOMODATION, PERRL - ENT Exam ENT Exam: Mucous Membranes Moist, Normal Exam - Neck Exam Neck Exam: Full ROM, Normal Inspection. absent: Lymphadenopathy - Respiratory Exam Respiratory Exam: Clear to Ausculation Bilateral, NORMAL BREATHING PATTERN - Cardiovascular Exam Cardiovascular Exam: Tachycardia, Irregular Rhythm, +S1, +S2. absent: Murmur - GI/Abdominal Exam GI & Abdominal Exam: Soft, Normal Bowel Sounds. absent: Tenderness Additional comments: LESS DISTENDED - Rectal Exam Rectal Exam: NORMAL INSPECTION - Extremities Exam Extremities Exam: Full ROM, Normal Capillary Refill, Normal Inspection. absent : Joint Swelling, Pedal Edema - Back Exam Back Exam: NORMAL INSPECTION - Neurological Exam Neurological Exam: Alert, Awake, CN II-XII Intact, Oriented x3 - Psychiatric Exam Psychiatric exam: Normal Affect, Normal Mood - Skin Skin Exam: Dry, Intact, Normal Color, Warm Assessment and Plan - Assessment and Plan (Free Text) Assessment: INTESTINAL OBSTRUCTION SEPSIS IMPROVING ATRIAL FIB WITH RVR DEHYDRATION IMPROVING[PRERENAL AZOTEMIA] HYPOKALEMIA HX OF THYROID DZ HYPOTENSION IMPROVED Plan: CONTINUE GI AND SURGICAL CARE ANTIARRYTHMIC RX K+SUPPLEMENTS REPEAT KUB ATTEMPT TO WEAN OFF PRESSORS IV ANTIBIOTICS MONITOR IN ICU
[2017-01-29] MEDS ORDERED: Amiodarone 900 MG in Dextrose 5% In Water 500 ML IVPB SCH (08:43)
[2017-01-29] MEDS ORDERED: Digoxin 500 mcg/2ml (0.5 mg/2ml) Inj IVP ONE (08:46)
--- NOTE | 2017-01-29 08:50 | HP ---
HISTORY OF PRESENT ILLNESS: The patient is an 81-year-old female that was admitted to the intensive care unit because of sudden onset of abdominal discomfort with nausea and vomiting on the day of admi ssion and also diarrhea with poor appetite. She felt very weak, and when she was seen in the Emergen cy Room appeared septic and dehydrated with low blood pressure. She was, therefore, admitted to the intensive care unit for workup and therapy. She also had an x-ray that showed intestinal obstruction . PAST MEDICAL HISTORY: Remarkable for COPD, atrial fibrillation for which she is on Pradaxa. She is also on a permanent pacemaker, has a history of diverticular disease, congestive heart failure and co ronary artery disease in the past, hypothyroidism, pneumonia and cholelithiasis and left renal stone with some compression fracture of the vertebrae. FAMILY HISTORY: Noncontributory. SOCIAL HISTORY: She quit smoking years ago. Does not use drugs. Does not use alcohol. She lives a lone, but has a daughter who lives close by. REVIEW OF SYSTEMS: Essentially unremarkable. PHYSICAL EXAMINATION: GENERAL: The patient is alert, oriented, appears much more comfortable since admission. She has an NG tube in her nose with drainage of bilious material. VITAL SIGNS: Remarkable for blood pressure of 81/56, pulse 122, respiratory rate 18. She is afebril e. O2 sat is 98% on room air. SKIN: Shows fair turgor. HEENT: Pupils equal, react to light and accommodation. Mouth shows dry mucosa. NECK: JVP flat. LUNGS: Fair aeration. HEART: S1, S2. BREASTS: Normal. ABDOMEN: Soft. Not severely tender at present, but had some midepigastric tenderness on admission. Normoactive bowel sounds noted. RECTAL AND GENITALIA: Unremarkable. EXTREMITIES: Show no edema or cyanosis. LABORATORY DATA: Remarkable for WBC of 24.6, hemoglobin 12.8, platelet count 310,000. Sodium 136, p otassium 4.3, BUN 29, creatinine 2.0, serum glucose 126. ____: PH 7.34, pO2 of 26, pCO2 of 45; this is a ____ blood gas. Urinalysis unremarkable. X-ray shows cardiomegaly with bibasilar infiltrates. CT scan of abdomen and pelvis is remarkable for small bowel obstruction with a transition into the lower pelvis, Port-A-Cath in the right chest is appreciated, cardiomegaly with atherosclerotic diseas e, fibrotic changes in the lung base, gallstone. EKG: Atrial fibrillation with rapid ventricular re sponse, ST-T abnormalities. Consider inferior ischemia. Lactate level 2.0. IMPRESSION: Intestinal obstruction, cardiac arrhythmias (atrial fibrillation with rapid ventricular response), history of chronic obstructive pulmonary disease, hypotension, probably secondary to sepsi s, history of hypothyroidism. PLAN: IV hydration, NG tube to low intermittent suction. Will obtain gastroenterology and surgical evaluation and cardiac evaluation. IV antibiotics as ordered. Will continue therapy, conservative m onitoring right now. Further therapy will depend on surgical intervention. Yomi Mir MD cc: [id number] TT: 01/28/2017 10:49:08 al
--- NOTE | 2017-01-29 09:12 | CP.PCM.PN ---
<Latasha Ambrose - Last Filed: 01/29/17 09:09> Subjective - Date & Time of Evaluation Date of Evaluation: 01/29/17 Time of Evaluation: 07:00 - Subjective Subjective: Pt s/e at bedside this AM. NAEO. Patient denied any nausea, vomiting, abdominal pain, or any other symptoms. Central chest pain she had at admit has resolved. Patient states that she is passing gas but has not had a bowel movement since her last one in the ER. There is dark greent fluid output from the NGT--400cc-- but uncertain about the duration of this collection Objective - Vital Signs/Intake and Output Vital Signs (last 24 hours): Temp Pulse Resp BP Pulse Ox 98.3 F 113 H 12 109/75 92 L 01/29/17 08:00 01/29/17 08:00 01/29/17 08:00 01/29/17 08:00 01/29/17 08:00 Intake and Output: 01/29/17 01/29/17 06:59 18:59 Intake Total 1700 Output Total 700 Balance 1000 - Medications Medications: Current Medications Piperacillin Sod/Tazobactam (Sod 2.25 gm/ Sodium Chloride) 100 mls @ 100 mls/ hr IVPB Q6 NIC Last Admin: 01/29/17 03:38 Dose: 100 mls/hr Amiodarone HCl 900 mg/ (Dextrose) 518 mls @ 34.53 mls/hr IVPB .Q15H1M NIC; 1 MG /MIN PRN Reason: Protocol Potassium Chloride/Dextrose/Sod Cl (Potassium Chl 20 Meq In D5-1/2ns) 1,000 mls @ 42 mls/hr IV .[id number] NIC Stop: 01/30/17 08:51 Morphine Sulfate (Morphine) 4 mg IVP Q4 PRN PRN Reason: Pain, moderate (4-7) Pantoprazole Sodium (Protonix Inj) 40 mg IVP DAILY [facility] Last Admin: 01/28/17 09:11 Dose: 40 mg - Labs Labs: 01/29/17 08:07 01/29/17 08:07 PT 14.7 SECONDS (9.6-11.2) H 01/28/17 05:45 INR 1.41 (0.92-1.08) H 01/28/17 05:45 APTT 36.8 SECONDS (23.3-32.5) H 01/28/17 05:45 - Constitutional Appears: Well, Non-toxic, No Acute Distress - Head Exam Head Exam: ATRAUMATIC, NORMOCEPHALIC - Eye Exam Eye Exam: Normal appearance. absent: Conjunctival injection, Scleral icterus - ENT Exam ENT Exam: Mucous Membranes Moist, Normal Oropharynx Additional comments: NGT in place with no sign of nare trauma - Respiratory Exam Respiratory Exam: NORMAL BREATHING PATTERN. absent: Accessory Muscle Use, Respiratory Distress - Cardiovascular Exam Cardiovascular Exam: Tachycardia - GI/Abdominal Exam GI & Abdominal Exam: Soft. absent: Distended, Tenderness - Extremities Exam Extremities Exam: Normal Capillary Refill, Normal Inspection. absent: Calf Tenderness, Pedal Edema, Tenderness - Neurological Exam Neurological Exam: Alert, Awake, Oriented x3 - Psychiatric Exam Psychiatric exam: Normal Affect, Normal Mood - Skin Skin Exam: Dry, Intact, Normal Color, Warm Assessment and Plan - Assessment and Plan (Free Text) Assessment: 81F with extensive cardiac and respiratory PMH who presented with N/V/abdominal pain likely 2/2 SBO vs ileus Abdominal exam benign, 400cc dark green fluid out of NGT LFT's wnl Plan: - conservative management--no surgical intervention for gallstone as there is no sign of cholecystitis - NPO, IVF, ABx, pain control - NGT is draining dark green fluid--Continue until return of bowel function - serial abdominal exams - continue to monitor bowel function - Continue to trend BMP and CBC - Stool culture pending BM Discussed with Dr. Leonel Ambrose, PGY1 <Roosevelt Castaneda - Last Filed: 02/01/17 18:40> Objective - Vital Signs/Intake and Output Vital Signs (last 24 hours): Temp Pulse Resp BP Pulse Ox 98.1 F 78 18 120/69 99 02/01/17 16:00 02/01/17 18:00 02/01/17 18:00 02/01/17 18:00 02/01/17 18:00 Intake and Output: 02/01/17 02/01/17 06:59 18:59 Intake Total 704 1240 Output Total 620 500 Balance 84 740 - Medications Medications: Current Medications Digoxin (Lanoxin) 0.25 mg PO DAILY NIC Docusate Sodium (Colace) 100 mg PO BID [facility] Last Admin: 02/01/17 16:52 Dose: 100 mg Piperacillin Sod/Tazobactam (Sod 2.25 gm/ Sodium Chloride) 100 mls @ 100 mls/ hr IVPB Q6 [facility] Last Admin: 02/01/17 16:53 Dose: 100 mls/hr Ondansetron HCl (Zofran Inj) 4 mg IVP Q6 PRN PRN Reason: Nausea/Vomiting Last Admin: 01/31/17 12:47 Dose: 4 mg Pantoprazole Sodium (Protonix Inj) 40 mg IVP DAILY [facility] Last Admin: 02/01/17 10:25 Dose: 40 mg - Labs Labs: 01/31/17 05:30 01/31/17 05:30 PT 14.7 SECONDS (9.6-11.2) H 01/28/17 05:45 INR 1.41 (0.92-1.08) H 01/28/17 05:45 APTT 36.8 SECONDS (23.3-32.5) H 01/28/17 05:45 Attending/Attestation - Attestation I have personally seen and examined this patient.: Yes I have fully participated in the care of the patient.: Yes I have reviewed all pertinent clinical information, including history, physical exam and plan: Yes Notes (Text): 02/01/17 18:39 Pt was seen and examined at bedside on 01/29/17 Agree with above note and assessment Pt with improving PSBO Clamp NG tube NPO, IVF Plan d/w pt in detail.
[2017-01-29] MEDS: Potassium Ch 20mEq in D5-1/2NS 1,000 ML IV SCH (10:12)
--- NOTE | 2017-01-29 10:27 | CP.PCM.PN ---
Subjective - Date & Time of Evaluation Date of Evaluation: 01/29/17 Time of Evaluation: 09:00 - Subjective Subjective: lying in bed NGT in place draining Bilous fluid Denies abdominal pain no chest pain/palpitations Monitor: AF @ 110-130 BPM now on amiodarone Objective - Vital Signs/Intake and Output Vital Signs (last 24 hours): Temp Pulse Resp BP Pulse Ox 98.3 F 113 H 12 109/75 92 L 01/29/17 08:00 01/29/17 08:00 01/29/17 08:00 01/29/17 08:00 01/29/17 08:00 Intake and Output: 01/29/17 01/29/17 06:59 18:59 Intake Total 1700 Output Total 700 Balance 1000 - Medications Medications: Current Medications Piperacillin Sod/Tazobactam (Sod 2.25 gm/ Sodium Chloride) 100 mls @ 100 mls/ hr IVPB Q6 NIC Last Admin: 01/29/17 03:38 Dose: 100 mls/hr Amiodarone HCl 900 mg/ (Dextrose) 518 mls @ 34.53 mls/hr IVPB .Q15H1M NIC; 1 MG /MIN PRN Reason: Protocol Potassium Chloride/Dextrose/Sod Cl (Potassium Chl 20 Meq In D5-1/2ns) 1,000 mls @ 42 mls/hr IV .[id number] NIC Stop: 01/30/17 08:51 Last Admin: 01/29/17 10:12 Dose: 42 mls/hr Morphine Sulfate (Morphine) 4 mg IVP Q4 PRN PRN Reason: Pain, moderate (4-7) Pantoprazole Sodium (Protonix Inj) 40 mg IVP DAILY [facility] Last Admin: 01/28/17 09:11 Dose: 40 mg - Labs Labs: 01/29/17 08:07 01/29/17 08:07 PT 14.7 SECONDS (9.6-11.2) H 01/28/17 05:45 INR 1.41 (0.92-1.08) H 01/28/17 05:45 APTT 36.8 SECONDS (23.3-32.5) H 01/28/17 05:45 Assessment and Plan (1) Cholelithiasis Status: Acute (2) SBO (small bowel obstruction) Status: Acute (3) Severe sepsis Status: Acute (4) Afib Status: Acute
[2017-01-29] MEDS ORDERED: Lactated Ringer's 500 ML IV SCH ×2 (11:30→13:15)
--- NOTE | 2017-01-29 11:50 | RAD ---
HISTORY: SMALL BOWEL OBSTRUCTION COMPARISON: Comparison made with CT scan of the abdomen and pelvis dated 01/27/2017. FINDINGS: BOWEL: Study is limited by motion artifact. Evaluation for obstruction is quite limited due to motion artifact as well as supine patient positioning. Nonobstructive/nonspecific bowel gas pattern. Re- demonstrated is a chest tube right lung base. BONES: Multilevel degenerative spondylosis of the lower thoracic and lumbar spine. Left total hip replacement again noted. OTHER FINDINGS: None. IMPRESSION: Study is limited by motion artifact. Evaluation for obstruction is quite limited due to motion artifact as well as supine patient positioning. Nonobstructive/nonspecific bowel gas pattern. . Re- demonstrated is a chest tube right lung base.
[2017-01-29] MEDS ORDERED: Lidocaine 1% Inj (20ml) ONE (12:00)
--- NOTE | 2017-01-29 14:31 | CP.CCUPN ---
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 Admits to being thirsty. Remains intermittently hypotensive, but denies any dizziness, weakness, SOB, chest discomfort, nor abdominal pain. Tachycardic at times as well, given digoxin and subsequent Amiodarone for rate control. Given hypotension and possible consideration for vasopressor use; attempts to obtain central venous access were unsuccessful over R femoral vein area. Site chosen due to Pradaxa-coagulopathy. New 20G peripheral IV obtained in Left forearm in the interim. Afebrile, no fever spikes; BP 84/52 HR 112, 97% SPO2 on nasal cannula. 24H I/O's= 1829/1075ml ROS: as above, no other pertinent negs or positives on 10 system review. PMFSH: all nursing and historical notes reviewed, no new pertinent data relevant to current problems. No other distress noted: EXAM- HEENT: no icterus, pupils equal and reactive NECK: no visible JVD, supple, carotids equal upstroke bilat/no bruits CHEST: decreased BS bases, no wheezes HEART: regular, distant, S1S2, no murmur audible, no rubs. ABD: soft, no increased distention, no focal tenderness, no HSM. BS hypoactive , EXT: no peripheral/ digital cyanosis, no calf tenderness or palpable cords, distal pulses intact and symmetrical NEURO: no gross focal motor deficits SKIN: no rashes LABS: WBC= 9. HGB= 11.8 PLTs= 266K Na= 144 K= 3.4 HCO3= 21 BUN/Cr= 19/0.7 BS= 92 Micro: negative to date MAJOR PROBLEMS NOW: 1. Chronic A fib with RVR , on Pradaxa 2. Hypovolemic shock, r/o Severe Sepsis 3. SBO 4. Azotemia / Dehydration 5. Chronic R Pleural Effusion 6. Hypothyroidism on THRT PLAN: 1. Amiodarone IVP and drip if needed. 2. More IVFs. Labs today reflect hemocncentaration. 3. SBO mgmt as per Surgery. Remains on Zosyn. 4. Home antihypertensive on hold: Cardizem, Losartan, Toprol XL, Aldactone, Torsemide.
[2017-01-30 05:31] LABS: BASO # 0.1 K/uL (0.0-0.2); BASO % 0.6 % (0.0-2.0); EOS # 0.3 K/uL (0.0-0.7); EOS % 2.9 % (0.0-4.0); HEMATOCRIT 31.6 % (34.0-47.0); LYMPH % 21.5 % (20.0-40.0); MEAN CELL VOLUME 91.3 fl (81.0-99.0); MEAN CORPUSCULAR HEMOGLOBIN 29.1 pg (27.0-31.0); MEAN CORPUSCULAR HGB CONC 31.9 g/dL (33.0-37.0); MEAN PLATELET VOLUME 7.3 fl (7.2-11.7); MONO # 0.8 K/uL (0.0-0.8); MONO % 8.4 % (0.0-10.0); NEUT # 6.2 K/uL (1.8-7.0); NEUT % 66.6 % (50.0-75.0); WHITE BLOOD COUNT 9.3 K/uL (4.8-10.8)
[2017-01-30 05:58] LABS: BLOOD UREA NITROGEN 15 mg/dl (7-17); CALCIUM 8.7 mg/dL (8.4-10.2); CARBON DIOXIDE 22 mmol/L (22-30); CHLORIDE 109 mmol/L (98-107); GFR AFRICAN-AMERICAN > 60; GLUCOSE,RANDOM 87 mg/dL (65-105); POTASSIUM 3.7 MMOL/L (3.6-5.0); SODIUM 141 mmol/l (132-148)
--- NOTE | 2017-01-30 07:47 | CP.PCM.PN ---
<Yaima Zelaya - Last Filed: 01/30/17 07:44> Subjective - Date & Time of Evaluation Date of Evaluation: 01/30/17 Time of Evaluation: 07:44 - Subjective Subjective: General Surgery - Dr. Castaneda Pt S&E. BLAYNE. Pt had NGT removed last night and tolerated clear liquid diet. She is passing flatus, no further BM yet. Pt states her abdominal pain is gone and she denies any N/V, F/C. Objective - Vital Signs/Intake and Output Vital Signs (last 24 hours): Temp Pulse Resp BP Pulse Ox 98.2 F 107 H 16 120/71 96 01/30/17 07:44 01/30/17 07:44 01/30/17 07:44 01/30/17 07:44 01/30/17 07:44 Intake and Output: 01/30/17 01/30/17 06:59 18:59 Intake Total 564 Output Total 430 Balance 134 - Medications Medications: Current Medications Piperacillin Sod/Tazobactam (Sod 2.25 gm/ Sodium Chloride) 100 mls @ 100 mls/ hr IVPB Q6 NIC Last Admin: 01/30/17 04:00 Dose: 100 mls/hr Amiodarone HCl 900 mg/ (Dextrose) 518 mls @ 34.53 mls/hr IVPB .Q15H1M NIC; 1 MG /MIN PRN Reason: Protocol Potassium Chloride/Dextrose/Sod Cl (Potassium Chl 20 Meq In D5-1/2ns) 1,000 mls @ 42 mls/hr IV .[id number] NIC Stop: 01/30/17 08:51 Last Admin: 01/29/17 10:12 Dose: 42 mls/hr Morphine Sulfate (Morphine) 4 mg IVP Q4 PRN PRN Reason: Pain, moderate (4-7) Pantoprazole Sodium (Protonix Inj) 40 mg IVP DAILY [facility] Last Admin: 01/29/17 10:43 Dose: 40 mg - Labs Labs: 01/30/17 04:30 01/30/17 04:35 PT 14.7 SECONDS (9.6-11.2) H 01/28/17 05:45 INR 1.41 (0.92-1.08) H 01/28/17 05:45 APTT 36.8 SECONDS (23.3-32.5) H 01/28/17 05:45 - Constitutional Appears: No Acute Distress - Head Exam Head Exam: ATRAUMATIC, NORMAL INSPECTION, NORMOCEPHALIC - Eye Exam Eye Exam: Normal appearance - ENT Exam ENT Exam: Mucous Membranes Moist - Respiratory Exam Respiratory Exam: NORMAL BREATHING PATTERN. absent: Respiratory Distress - Cardiovascular Exam Cardiovascular Exam: Irregular Rhythm - GI/Abdominal Exam GI & Abdominal Exam: Soft. absent: Distended, Guarding, Tenderness, Rebound - Neurological Exam Neurological Exam: Alert, Oriented x3 - Psychiatric Exam Psychiatric exam: Normal Affect, Normal Mood - Skin Skin Exam: Dry, Intact Assessment and Plan - Assessment and Plan (Free Text) Assessment: 81F w/ Afib and Ileus v. partial SBO which is resolving Plan: - Continue Clear liquid diet - Monitor for further Bowel function - Will advance diet later today - No surgical plans DW Dr. Leonel Zelaya PGY2 <Roosevelt Castaneda - Last Filed: 02/01/17 18:43> Objective - Vital Signs/Intake and Output Vital Signs (last 24 hours): Temp Pulse Resp BP Pulse Ox 98.1 F 78 18 120/69 99 02/01/17 16:00 02/01/17 18:00 02/01/17 18:00 02/01/17 18:00 02/01/17 18:00 Intake and Output: 02/01/17 02/01/17 06:59 18:59 Intake Total 704 1240 Output Total 620 500 Balance 84 740 - Medications Medications: Current Medications Digoxin (Lanoxin) 0.25 mg PO DAILY [facility] Docusate Sodium (Colace) 100 mg PO BID [facility] Last Admin: 02/01/17 16:52 Dose: 100 mg Piperacillin Sod/Tazobactam (Sod 2.25 gm/ Sodium Chloride) 100 mls @ 100 mls/ hr IVPB Q6 [facility] Last Admin: 02/01/17 16:53 Dose: 100 mls/hr Ondansetron HCl (Zofran Inj) 4 mg IVP Q6 PRN PRN Reason: Nausea/Vomiting Last Admin: 01/31/17 12:47 Dose: 4 mg Pantoprazole Sodium (Protonix Inj) 40 mg IVP DAILY [facility] Last Admin: 02/01/17 10:25 Dose: 40 mg - Labs Labs: 01/31/17 05:30 01/31/17 05:30 PT 14.7 SECONDS (9.6-11.2) H 01/28/17 05:45 INR 1.41 (0.92-1.08) H 01/28/17 05:45 APTT 36.8 SECONDS (23.3-32.5) H 01/28/17 05:45 Attending/Attestation - Attestation I have personally seen and examined this patient.: Yes I have fully participated in the care of the patient.: Yes I have reviewed all pertinent clinical information, including history, physical exam and plan: Yes Notes (Text): 02/01/17 18:41 Pt was seen and examined at bedside on 01/30/17 Agree with above note and assessment Pt with improving PSBO DC NG tube Clear Liquid diet, IVF C/w current mx Plan d/w pt in detail.
--- NOTE | 2017-01-30 09:49 | CARD ---
APPROVED REPORT EKG Measurement Heart [id number] <Conclusion> Atrial fibrillation with rapid ventricular response Marked ST abnormality, possible inferior subendocardial injury Abnormal ECG
[2017-01-30] MEDS ORDERED: Digoxin 500 mcg/2ml (0.5 mg/2ml) Inj IVP ONE (10:57)
--- NOTE | 2017-01-30 11:23 | CP.PCM.PN ---
Subjective - Date & Time of Evaluation Date of Evaluation: 01/30/17 Time of Evaluation: 10:00 - Subjective Subjective: NGT removed last night tolerating clear liquids still tachycardic / on amiodarone I feel the pt would do better with Digoxin Objective - Vital Signs/Intake and Output Vital Signs (last 24 hours): Temp Pulse Resp BP Pulse Ox 98.2 F 145 H 16 91/71 L 97 01/30/17 07:44 01/30/17 10:00 01/30/17 08:00 01/30/17 10:00 01/30/17 10:00 Intake and Output: 01/30/17 01/30/17 06:59 18:59 Intake Total 564 478 Output Total 430 100 Balance 134 378 - Medications Medications: Current Medications Piperacillin Sod/Tazobactam (Sod 2.25 gm/ Sodium Chloride) 100 mls @ 100 mls/ hr IVPB Q6 [facility] Last Admin: 01/30/17 10:12 Dose: 100 mls/hr Amiodarone HCl 900 mg/ (Dextrose) 518 mls @ 34.53 mls/hr IVPB .Q15H1M NIC; 1 MG /MIN PRN Reason: Protocol Morphine Sulfate (Morphine) 4 mg IVP Q4 PRN PRN Reason: Pain, moderate (4-7) Pantoprazole Sodium (Protonix Inj) 40 mg IVP DAILY [facility] Last Admin: 01/30/17 08:38 Dose: 40 mg - Labs Labs: 01/30/17 04:30 01/30/17 04:35 PT 14.7 SECONDS (9.6-11.2) H 01/28/17 05:45 INR 1.41 (0.92-1.08) H 01/28/17 05:45 APTT 36.8 SECONDS (23.3-32.5) H 01/28/17 05:45 Assessment and Plan (1) Cholelithiasis Status: Acute (2) SBO (small bowel obstruction) Status: Acute (3) Severe sepsis Status: Acute (4) Afib Status: Acute
--- NOTE | 2017-01-30 12:58 | CP.PCM.PN ---
Subjective - Date & Time of Evaluation Date of Evaluation: 01/30/17 Time of Evaluation: 12:59 - Subjective Subjective: FEELS BETTER NGT REMOVED TOLERATING LIQUID DIET NO ABD PAINS/VOMITING/NAUSEA HEART RATE-90S Objective - Vital Signs/Intake and Output Vital Signs (last 24 hours): Temp Pulse Resp BP Pulse Ox 98.5 F 116 H 16 113/57 L 99 01/30/17 12:30 01/30/17 12:30 01/30/17 12:30 01/30/17 12:30 01/30/17 12:30 Intake and Output: 01/30/17 01/30/17 06:59 18:59 Intake Total 564 478 Output Total 430 100 Balance 134 378 - Medications Medications: Current Medications Piperacillin Sod/Tazobactam (Sod 2.25 gm/ Sodium Chloride) 100 mls @ 100 mls/ hr IVPB Q6 NIC Last Admin: 01/30/17 10:12 Dose: 100 mls/hr Amiodarone HCl 900 mg/ (Dextrose) 518 mls @ 34.53 mls/hr IVPB .Q15H1M NCI; 1 MG /MIN PRN Reason: Protocol Morphine Sulfate (Morphine) 4 mg IVP Q4 PRN PRN Reason: Pain, moderate (4-7) Pantoprazole Sodium (Protonix Inj) 40 mg IVP DAILY [facility] Last Admin: 01/30/17 08:38 Dose: 40 mg - Labs Labs: 01/30/17 04:30 01/30/17 04:35 PT 14.7 SECONDS (9.6-11.2) H 01/28/17 05:45 INR 1.41 (0.92-1.08) H 01/28/17 05:45 APTT 36.8 SECONDS (23.3-32.5) H 01/28/17 05:45 - Constitutional Appears: Well, No Acute Distress - Head Exam Head Exam: ATRAUMATIC, NORMAL INSPECTION, NORMOCEPHALIC - Eye Exam Eye Exam: EOMI, Normal appearance, PERRL Pupil Exam: NORMAL ACCOMODATION, PERRL - ENT Exam ENT Exam: Mucous Membranes Moist, Normal Exam - Neck Exam Neck Exam: Full ROM, Normal Inspection. absent: Lymphadenopathy - Respiratory Exam Respiratory Exam: Clear to Ausculation Bilateral, NORMAL BREATHING PATTERN - Cardiovascular Exam Cardiovascular Exam: Irregular Rhythm, +S1, +S2. absent: Murmur - GI/Abdominal Exam GI & Abdominal Exam: Soft, Normal Bowel Sounds. absent: Tenderness - Rectal Exam Rectal Exam: NORMAL INSPECTION - Extremities Exam Extremities Exam: Full ROM, Normal Capillary Refill, Normal Inspection. absent : Joint Swelling, Pedal Edema - Back Exam Back Exam: NORMAL INSPECTION - Neurological Exam Neurological Exam: Alert, Awake, CN II-XII Intact, Normal Gait, Oriented x3 - Psychiatric Exam Psychiatric exam: Normal Affect, Normal Mood - Skin Skin Exam: Dry, Intact, Normal Color, Warm Assessment and Plan - Assessment and Plan (Free Text) Assessment: INT OBSTRUCTION ATRIAL FIB BETTER CONTROLLED HYPOTENSION RESOLVED HYPOTHYROIDISM SEPSIS-IMPROVED Plan: CONTINUE PRESENT RX ADVANCE DIET IN AM
--- NOTE | 2017-01-30 14:05 | CP.PCM.PN ---
Subjective - Date & Time of Evaluation Date of Evaluation: 01/30/17 Time of Evaluation: 14:00 - Subjective Subjective: tolerating clears Objective - Vital Signs/Intake and Output Vital Signs (last 24 hours): Temp Pulse Resp BP Pulse Ox 98.5 F 116 H 16 113/57 L 99 01/30/17 12:30 01/30/17 12:30 01/30/17 12:30 01/30/17 12:30 01/30/17 12:30 Intake and Output: 01/30/17 01/30/17 06:59 18:59 Intake Total 564 478 Output Total 430 100 Balance 134 378 - Medications Medications: Current Medications Piperacillin Sod/Tazobactam (Sod 2.25 gm/ Sodium Chloride) 100 mls @ 100 mls/ hr IVPB Q6 NIC Last Admin: 01/30/17 10:12 Dose: 100 mls/hr Amiodarone HCl 900 mg/ (Dextrose) 518 mls @ 34.53 mls/hr IVPB .Q15H1M NIC; 1 MG /MIN PRN Reason: Protocol Morphine Sulfate (Morphine) 4 mg IVP Q4 PRN PRN Reason: Pain, moderate (4-7) Pantoprazole Sodium (Protonix Inj) 40 mg IVP DAILY [facility] Last Admin: 01/30/17 08:38 Dose: 40 mg - Labs Labs: 01/30/17 04:30 01/30/17 04:35 PT 14.7 SECONDS (9.6-11.2) H 01/28/17 05:45 INR 1.41 (0.92-1.08) H 01/28/17 05:45 APTT 36.8 SECONDS (23.3-32.5) H 01/28/17 05:45 - GI/Abdominal Exam GI & Abdominal Exam: Soft, Normal Bowel Sounds Assessment and Plan - Assessment and Plan (Free Text) Assessment: 81 yo female with sbo resolving surgical input apprciated outpatient endoscopic work up including capsule endoscopy
--- NOTE | 2017-01-30 14:41 | CON ---
DATE: 01/29/2017 REFERRING DOCTOR: Dr. Mir. REASON FOR CONSULTATION: Abdominal pain. HISTORY OF PRESENT ILLNESS: This is a very randa 81-year-old female essentially brought into the [facility] because of sudden onset of abdominal pain and discomfort, nausea and vomiting, ____ with some diarr hea and poor appetite. The patient has been weak. She actually feels a little better now. CAT scan and x-ray show multiple obstructions. GI was called for that. PAST MEDICAL HISTORY: COPD and A-fob, pacemaker insertion, CHF, coronary artery disease, hypothyroid ism, left renal cysts, compression fracture. PAST SURGICAL HISTORY: As above. MEDICATIONS: Reviewed and include Pradaxa. REVIEW OF SYSTEMS: All other systems have been reviewed and negative apart from the HPI. PHYSICAL EXAMINATION: VITAL SIGNS: Here in the hospital grossly unremarkable. GENERAL: Pleasant, elderly-appearing female lying in bed, comfortable, in no apparent distress. HEAD: Normocephalic, atraumatic. EYES: Pupils equally reactive to light bilaterally. No conjunctival pallor or icterus. NECK: Supple, normal range of motion. No lymphadenopathy appreciated. LUNGS: Clear to auscultation bilaterally. HEART: S1, S2, regular rate and rhythm, no murmurs appreciated. ABDOMEN: Soft, some discomfort. Bowel sounds present. No organomegaly. RECTAL: Deferred. EXTREMITIES: Pulses present bilaterally. SKIN: Warm, dry and intact. NEUROLOGIC: Alert and oriented x 3. LABORATORY DATA: Shows a small bowel obstruction with transition point in the low pelvis. Labs incl ude WBC of 9.4 down from 24.6, hemoglobin 11.8, hematocrit 37.4, INR 1.41. ASSESSMENT AND PLAN: This is an 81-year-old female with a small bowel obstruction. ____ for now and NG tube decompression. From GI standpoint, we will consider an outpatient workup including capsule endoscopy. Advance diet if okay with surgery. Thank you for the consult. Hamzah Hernandez MD, PhD cc:Yomi Mir MD [id number] TT: 01/30/2017 14:41:04 Confirmation # [id number] Dictation # [id number]
[2017-01-30] MEDS: Potassium Ch 20mEq in D5-1/2NS 1,000 ML IV SCH (16:25)
--- NOTE | 2017-01-30 16:50 | CP.CCUPN ---
CCU Subjective - Physician Review Subjective (Free Text): HEAD ESTHETICIAN PROGRESS NOTE Patient examined, interim events reviewed: Awake and conversant, no new complaints offered, non distressed; still feels thirsty. BP levels improved, but denies any dizziness, weakness, SOB, chest discomfort, nor abdominal pain. Tachycardic at times as well to 140s, given digoxin for rate control. Afebrile, no fever spikes; BP 112/52 HR 112, 97% SPO2 on nasal cannula. 24H I/O's = 2516/1480ml. ROS: as above, no other pertinent negs or positives on 10 system review. PMFSH: all nursing and historical notes reviewed, no new pertinent data relevant to current problems. No other distress noted: EXAM- HEENT: no icterus, pupils equal and reactive NECK: no visible JVD, supple, carotids equal upstroke bilat/no bruits CHEST: decreased BS bases, no wheezes HEART: regular, distant, S1S2, no murmur audible, no rubs. ABD: soft, no increased distention, no focal tenderness, no HSM. BS hypoactive , EXT: no peripheral/ digital cyanosis, no calf tenderness or palpable cords, distal pulses intact and symmetrical NEURO: no gross focal motor deficits SKIN: no rashes LABS: WBC= 9.3 HGB= 10.1 PLTs= 202K Na= 141 K= 3.7 HCO3= 22 BUN/Cr= 15/0.7 BS= 87 Micro: negative to date MAJOR PROBLEMS NOW: 1. Chronic A fib with RVR , on Pradaxa 2. Hypovolemic shock, r/o Severe Sepsis 3. SBO 4. Azotemia / Dehydration 5. Chronic R Pleural Effusion 6. Hypothyroidism on THRT PLAN: 1. Digoxin IVP Prn 2. IVF hydration 3. Check Lactate level. 4. If HR decreases to more acceptable levels, to start bedside PT as tolerated.
[2017-01-31 06:57] LABS: HEMATOCRIT 33.8 % (34.0-47.0); MEAN CELL VOLUME 90.7 fl (81.0-99.0); MEAN CORPUSCULAR HEMOGLOBIN 28.7 pg (27.0-31.0); MEAN CORPUSCULAR HGB CONC 31.7 g/dL (33.0-37.0); RED CELL DISTRIBUTION WIDTH 15.4 % (11.5-14.5); WHITE BLOOD COUNT 7.7 K/uL (4.8-10.8)
[2017-01-31 07:19] LABS: BLOOD UREA NITROGEN 8 mg/dl (7-17); CALCIUM 8.9 mg/dL (8.4-10.2); CARBON DIOXIDE 27 mmol/L (22-30); CHLORIDE 104 mmol/L (98-107); GFR AFRICAN-AMERICAN > 60; GLUCOSE,RANDOM 95 mg/dL (65-105); POTASSIUM 3.7 MMOL/L (3.6-5.0); SODIUM 136 mmol/l (132-148)
--- NOTE | 2017-01-31 07:37 | CP.PCM.PN ---
Subjective - Date & Time of Evaluation Date of Evaluation: 01/31/17 Time of Evaluation: 07:35 - Subjective Subjective: General Surgery - Dr Castaneda Pt S&E. BLAYNE. Pt has been tolerating CLD. She is passing flatus. Has not had BM yet. States only has BM normally q4d with aid of stool softeners/ laxatives. Denies any abdominal pain, n/v, f/c, sob or chest pain. States no appetite currently. Has been OOB to chair. Objective - Vital Signs/Intake and Output Vital Signs (last 24 hours): Temp Pulse Resp BP Pulse Ox 98.4 F 90 18 107/78 98 01/31/17 04:00 01/31/17 06:00 01/31/17 06:00 01/31/17 06:00 01/31/17 06:00 Intake and Output: 01/31/17 01/31/17 06:59 18:59 Intake Total 770 Output Total 300 Balance 470 - Medications Medications: Current Medications Piperacillin Sod/Tazobactam (Sod 2.25 gm/ Sodium Chloride) 100 mls @ 100 mls/ hr IVPB Q6 [facility] Last Admin: 01/31/17 03:55 Dose: 100 mls/hr Pantoprazole Sodium (Protonix Inj) 40 mg IVP DAILY [facility] Last Admin: 01/30/17 08:38 Dose: 40 mg - Labs Labs: 01/31/17 05:30 01/31/17 05:30 PT 14.7 SECONDS (9.6-11.2) H 01/28/17 05:45 INR 1.41 (0.92-1.08) H 01/28/17 05:45 APTT 36.8 SECONDS (23.3-32.5) H 01/28/17 05:45 - Constitutional Appears: Non-toxic, No Acute Distress - Head Exam Head Exam: NORMAL INSPECTION - ENT Exam ENT Exam: Mucous Membranes Moist - Respiratory Exam Respiratory Exam: absent: Accessory Muscle Use, Respiratory Distress - Cardiovascular Exam Cardiovascular Exam: Irregular Rhythm. absent: Tachycardia - GI/Abdominal Exam GI & Abdominal Exam: Soft, Normal Bowel Sounds. absent: Distended, Firm, Tenderness - Neurological Exam Neurological Exam: Alert, Awake, Oriented x3 - Psychiatric Exam Psychiatric exam: Normal Affect - Skin Skin Exam: Normal Color, Warm Assessment and Plan - Assessment and Plan (Free Text) Assessment: 81F w/ afib and ileus v partial SBO; resolving Plan: Cont clear liquid diet monitor for further bowel function will add colace BID no surgical plans d/w Dr Leonel Fuller PGY2
--- NOTE | 2017-01-31 09:57 | CP.PCM.PN ---
Subjective - Date & Time of Evaluation Date of Evaluation: 01/31/17 Time of Evaluation: 09:59 - Subjective Subjective: NO COMPLAINTS NO APPARENT DISTRESS TOLERATING CLEAR LIQUIDS NO BM YET Objective - Vital Signs/Intake and Output Vital Signs (last 24 hours): Temp Pulse Resp BP Pulse Ox 98.3 F 84 13 123/80 97 01/31/17 08:00 01/31/17 08:00 01/31/17 08:00 01/31/17 08:00 01/31/17 08:00 Intake and Output: 01/31/17 01/31/17 06:59 18:59 Intake Total 770 100 Output Total 300 Balance 470 100 - Medications Medications: Current Medications Docusate Sodium (Colace) 100 mg PO BID [facility] Piperacillin Sod/Tazobactam (Sod 2.25 gm/ Sodium Chloride) 100 mls @ 100 mls/ hr IVPB Q6 [facility] Last Admin: 01/31/17 09:00 Dose: 100 mls/hr Pantoprazole Sodium (Protonix Inj) 40 mg IVP DAILY [facility] Last Admin: 01/31/17 08:58 Dose: 40 mg - Labs Labs: 01/31/17 05:30 01/31/17 05:30 PT 14.7 SECONDS (9.6-11.2) H 01/28/17 05:45 INR 1.41 (0.92-1.08) H 01/28/17 05:45 APTT 36.8 SECONDS (23.3-32.5) H 01/28/17 05:45 - Constitutional Appears: No Acute Distress - Head Exam Head Exam: ATRAUMATIC, NORMAL INSPECTION, NORMOCEPHALIC - Eye Exam Eye Exam: EOMI, Normal appearance, PERRL Pupil Exam: NORMAL ACCOMODATION, PERRL - ENT Exam ENT Exam: Mucous Membranes Moist, Normal Exam - Neck Exam Neck Exam: Full ROM, Normal Inspection. absent: Lymphadenopathy - Respiratory Exam Respiratory Exam: Clear to Ausculation Bilateral, NORMAL BREATHING PATTERN - Cardiovascular Exam Cardiovascular Exam: Irregular Rhythm, +S1, +S2. absent: Murmur - GI/Abdominal Exam GI & Abdominal Exam: Soft, Normal Bowel Sounds. absent: Tenderness - Rectal Exam Rectal Exam: NORMAL INSPECTION - Extremities Exam Extremities Exam: Full ROM, Normal Capillary Refill, Normal Inspection. absent : Joint Swelling, Pedal Edema - Back Exam Back Exam: NORMAL INSPECTION - Neurological Exam Neurological Exam: Alert, Awake, CN II-XII Intact, Normal Gait, Oriented x3 - Psychiatric Exam Psychiatric exam: Normal Affect, Normal Mood - Skin Skin Exam: Dry, Intact, Normal Color, Warm Assessment and Plan - Assessment and Plan (Free Text) Assessment: INTESTINAL OBSTRUCTION--IMPROVED ATRIAL FIB WITH CONTROLLED V RESPONSE HX OF THYROID DZ Plan: WILL ADVANCE DIET ONCE PT MOVES BOWELS CONTINUE PRESENT RX D/C IV KCL
[2017-01-31] MEDS ORDERED: Dextrose 5%/0.45% NS 1,000 ML IV SCH (10:15)
--- NOTE | 2017-01-31 10:40 | CP.PCM.PN ---
Subjective - Date & Time of Evaluation Date of Evaluation: 01/31/17 Time of Evaluation: 10:39 - Subjective Subjective: Cardiac fowler doig better HR controlled with digoxin Tolerating diet well Objective - Vital Signs/Intake and Output Vital Signs (last 24 hours): Temp Pulse Resp BP Pulse Ox 98.3 F 104 H 19 110/65 98 01/31/17 08:00 01/31/17 10:00 01/31/17 10:00 01/31/17 10:00 01/31/17 10:00 Intake and Output: 01/31/17 01/31/17 06:59 18:59 Intake Total 770 100 Output Total 300 Balance 470 100 - Medications Medications: Current Medications Digoxin (Lanoxin Elixir Soln) 0.25 mg PO DAILY [facility] Docusate Sodium (Colace) 100 mg PO BID [facility] Piperacillin Sod/Tazobactam (Sod 2.25 gm/ Sodium Chloride) 100 mls @ 100 mls/ hr IVPB Q6 [facility] Last Admin: 01/31/17 09:00 Dose: 100 mls/hr Dextrose/Sodium Chloride (Dextrose 5%/0.45% Ns 1000 Ml) 1,000 mls @ 42 mls/hr IV .[id number] [facility] Stop: 02/01/17 10:03 Pantoprazole Sodium (Protonix Inj) 40 mg IVP DAILY [facility] Last Admin: 01/31/17 08:58 Dose: 40 mg - Labs Labs: 01/31/17 05:30 01/31/17 05:30 PT 14.7 SECONDS (9.6-11.2) H 01/28/17 05:45 INR 1.41 (0.92-1.08) H 01/28/17 05:45 APTT 36.8 SECONDS (23.3-32.5) H 01/28/17 05:45 Assessment and Plan (1) Cholelithiasis Status: Acute (2) SBO (small bowel obstruction) Status: Acute (3) Severe sepsis Status: Acute (4) Afib Assessment & Plan: HR controlled with meds Status: Acute
--- NOTE | 2017-01-31 10:56 | RAD ---
HISTORY: INTESTINAL OBSTRUCTION COMPARISON: No prior. FINDINGS: BOWEL: Nonspecific bowel gas pattern. No air-fluid levels identified. BONES: Extensive degenerative changes. Hip replacement on the left. OTHER FINDINGS: Multiple pelvic phleboliths. IMPRESSION: Overall nonobstructive however nonspecific bowel gas pattern. No air-fluid levels. If suspicion for bowel obstruction is persistent, CT abdomen pelvis should be obtained.
[2017-01-31] MEDS: Digoxin 0.05 mg/mL Elixir 5mL PO SCH (11:50)
--- NOTE | 2017-01-31 13:22 | CP.CCUPN ---
CCU Subjective - Physician Review Subjective (Free Text): ELECTROPLATING SALES REPRESENTATIVE PROGRESS NOTE Patient examined, interim events reviewed: Awake and conversant, was OOB to chair today with good tolerance. No new complaints offered, non distressed; still feels thirsty. HR better without episodes of excessive tachycardia, remains in A Fib at approx 85-92. SBPs 100- 110. Afebrile, no fever spikes; BP 112/52 HR 112, 97% SPO2 on nasal cannula. 24H I/O's = 2004/1050ml. ROS: as above, no other pertinent negs or positives on 10 system review. PMFSH: all nursing and historical notes reviewed, no new pertinent data relevant to current problems. No other distress noted: EXAM- HEENT: no icterus, pupils equal and reactive NECK: no visible JVD, supple, carotids equal upstroke bilat/no bruits CHEST: decreased BS bases, no wheezes HEART: regular, distant, S1S2, no murmur audible, no rubs. ABD: soft, no increased distention, no focal tenderness, no HSM. BS hypoactive , EXT: no peripheral/ digital cyanosis, no calf tenderness or palpable cords, distal pulses intact and symmetrical NEURO: no gross focal motor deficits SKIN: no rashes LABS: WBC= 7.7 HGB= 10.7 PLTs= 212K Na= 136 K= 3.7 HCO3= 27 BUN/Cr= 8/0.7 BS= 95 Micro: negative to date MAJOR PROBLEMS NOW: 1. Chronic A fib with RVR , on Pradaxa 2. Hypovolemic shock, r/o Severe Sepsis 3. SBO 4. Azotemia / Dehydration 5. Chronic R Pleural Effusion 6. Hypothyroidism on THRT PLAN: 1. Digoxin IVP Prn 2. IVF hydration 3. Conservative mgmt for SBO as per Surg. 4. Stable for transfer to stepdown bed.
[2017-02-01] MEDS: Digoxin 0.05 mg/mL Elixir 5mL PO SCH (09:28)
[2017-02-01] MEDS ORDERED: POLYETHYLENE GLYCOL 3350 17 GM/Dose PACKET PO ONE (10:45)
--- NOTE | 2017-02-01 11:55 | CP.PCM.PN ---
Subjective - Date & Time of Evaluation Date of Evaluation: 02/01/17 Time of Evaluation: 11:53 - Subjective Subjective: General Surgery - Dr. Castaneda Pt S*Placido CISNEROS. PT denies any complaints. She is tolerating clear liquid diet, 1 episode of "spit up" yesterday per pt. Pt denies any N/V, F/C, SOb/Cp. She is passing flatus, no BM yet. Objective - Vital Signs/Intake and Output Vital Signs (last 24 hours): Temp Pulse Resp BP Pulse Ox 97.9 F 95 H 21 113/69 100 02/01/17 07:44 02/01/17 10:00 02/01/17 10:00 02/01/17 10:00 02/01/17 10:00 Intake and Output: 02/01/17 02/01/17 06:59 18:59 Intake Total 704 400 Output Total 620 200 Balance 84 200 - Medications Medications: Current Medications Digoxin (Lanoxin Elixir Soln) 0.25 mg PO DAILY [facility] Last Admin: 02/01/17 09:28 Dose: 0.25 mg Docusate Sodium (Colace) 100 mg PO BID [facility] Last Admin: 02/01/17 09:28 Dose: 100 mg Piperacillin Sod/Tazobactam (Sod 2.25 gm/ Sodium Chloride) 100 mls @ 100 mls/ hr IVPB Q6 [facility] Last Admin: 02/01/17 09:30 Dose: 100 mls/hr Ondansetron HCl (Zofran Inj) 4 mg IVP Q6 PRN PRN Reason: Nausea/Vomiting Last Admin: 01/31/17 12:47 Dose: 4 mg Pantoprazole Sodium (Protonix Inj) 40 mg IVP DAILY [facility] Last Admin: 02/01/17 10:25 Dose: 40 mg - Labs Labs: 01/31/17 05:30 01/31/17 05:30 PT 14.7 SECONDS (9.6-11.2) H 01/28/17 05:45 INR 1.41 (0.92-1.08) H 01/28/17 05:45 APTT 36.8 SECONDS (23.3-32.5) H 01/28/17 05:45 - Constitutional Appears: No Acute Distress - Head Exam Head Exam: ATRAUMATIC, NORMAL INSPECTION, NORMOCEPHALIC - Eye Exam Eye Exam: Normal appearance - Respiratory Exam Respiratory Exam: NORMAL BREATHING PATTERN. absent: Respiratory Distress - GI/Abdominal Exam GI & Abdominal Exam: Soft. absent: Distended, Guarding, Rigid, Tenderness, Rebound - Neurological Exam Neurological Exam: Alert, Oriented x3 - Psychiatric Exam Psychiatric exam: Normal Affect, Normal Mood - Skin Skin Exam: Dry, Intact Assessment and Plan - Assessment and Plan (Free Text) Assessment: 81F w/ afib and ileus v partial SBO; resolving Plan: Cont clear liquid diet Colace BID and will give Miralax 1x dose Monitor for BM Encourage Ambulation No surgical plans d/w Dr Leonel Zelaya PY2
--- NOTE | 2017-02-01 12:06 | CP.PCM.PN ---
Subjective - Date & Time of Evaluation Date of Evaluation: 02/01/17 Time of Evaluation: 12:09 - Subjective Subjective: still has no bowel movement vomited once yesterday but is ok today denies abdominal pains Objective - Vital Signs/Intake and Output Vital Signs (last 24 hours): Temp Pulse Resp BP Pulse Ox 97.9 F 95 H 21 113/69 100 02/01/17 07:44 02/01/17 10:00 02/01/17 10:00 02/01/17 10:00 02/01/17 10:00 Intake and Output: 02/01/17 02/01/17 06:59 18:59 Intake Total 704 400 Output Total 620 300 Balance 84 100 - Medications Medications: Current Medications Digoxin (Lanoxin Elixir Soln) 0.25 mg PO DAILY [facility] Last Admin: 02/01/17 09:28 Dose: 0.25 mg Docusate Sodium (Colace) 100 mg PO BID [facility] Last Admin: 02/01/17 09:28 Dose: 100 mg Piperacillin Sod/Tazobactam (Sod 2.25 gm/ Sodium Chloride) 100 mls @ 100 mls/ hr IVPB Q6 [facility] Last Admin: 02/01/17 09:30 Dose: 100 mls/hr Ondansetron HCl (Zofran Inj) 4 mg IVP Q6 PRN PRN Reason: Nausea/Vomiting Last Admin: 01/31/17 12:47 Dose: 4 mg Pantoprazole Sodium (Protonix Inj) 40 mg IVP DAILY [facility] Last Admin: 02/01/17 10:25 Dose: 40 mg - Labs Labs: 01/31/17 05:30 01/31/17 05:30 PT 14.7 SECONDS (9.6-11.2) H 01/28/17 05:45 INR 1.41 (0.92-1.08) H 01/28/17 05:45 APTT 36.8 SECONDS (23.3-32.5) H 01/28/17 05:45 - Constitutional Appears: No Acute Distress - Head Exam Head Exam: ATRAUMATIC, NORMAL INSPECTION, NORMOCEPHALIC - Eye Exam Eye Exam: EOMI, Normal appearance, PERRL Pupil Exam: NORMAL ACCOMODATION, PERRL - ENT Exam ENT Exam: Mucous Membranes Moist, Normal Exam - Neck Exam Neck Exam: Full ROM, Normal Inspection. absent: Lymphadenopathy - Respiratory Exam Respiratory Exam: Clear to Ausculation Bilateral, NORMAL BREATHING PATTERN - Cardiovascular Exam Cardiovascular Exam: Tachycardia, Irregular Rhythm, +S1, +S2. absent: Murmur - GI/Abdominal Exam GI & Abdominal Exam: Soft, Normal Bowel Sounds. absent: Tenderness - Rectal Exam Rectal Exam: NORMAL INSPECTION - Extremities Exam Extremities Exam: Full ROM, Normal Capillary Refill, Normal Inspection. 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
--- NOTE | 2017-02-01 17:54 | CP.CCUPN ---
CCU Subjective - Physician Review Subjective (Free Text): HOT WALKER PROGRESS NOTE Patient examined, interim events reviewed: Awake and a;ertt, has been OOB to chair today with good tolerance. No new complaints offered, non distressed; HR better without episodes of excessive tachycardia, remains in A Fib at approx 85-92. SBPs 100-110. Afebrile, no fever spikes; BP 112/52 HR 112, 97% SPO2 on nasal cannula. 24H I/O's = 1404/845ml. ROS: as above, no other pertinent negs or positives on 10 system review. PMFSH: all nursing and historical notes reviewed, no new pertinent data relevant to current problems. No other distress noted: EXAM- HEENT: no icterus, pupils equal and reactive NECK: no visible JVD, supple, carotids equal upstroke bilat/no bruits CHEST: decreased BS bases, no wheezes HEART: regular, distant, S1S2, no murmur audible, no rubs. ABD: soft, no increased distention, no focal tenderness, no HSM. BS hypoactive , EXT: no peripheral/ digital cyanosis, no calf tenderness or palpable cords, distal pulses intact and symmetrical NEURO: no gross focal motor deficits SKIN: no rashes LABS: No bloodwrok drawn today, yesterdays's: WBC= 7.7 HGB= 10.7 PLTs= 212K Na= 136 K= 3.7 HCO3= 27 BUN/Cr= 8/0.7 BS= 95 Micro: negative to date MAJOR PROBLEMS NOW: 1. Chronic A fib with RVR , on Pradaxa 2. Hypovolemic shock, no Severe Sepsis 3. SBO 4. Azotemia / Dehydration 5. Chronic R Pleural Effusion 6. Hypothyroidism on THRT PLAN: 1. Digoxin IVP Prn 2. IVF hydration 3. Conservative mgmt for SBO as per Surg. 4. Stable for transfer to stepdown bed.
[2017-02-02 05:31] LABS: BASO # 0.1 K/uL (0.0-0.2); BASO % 0.8 % (0.0-2.0); EOS # 0.2 K/uL (0.0-0.7); EOS % 2.6 % (0.0-4.0); HEMATOCRIT 35.1 % (34.0-47.0); LYMPH # 1.3 K/uL (1.0-4.3); LYMPH % 19.3 % (20.0-40.0); MEAN CELL VOLUME 90.2 fl (81.0-99.0); MEAN CORPUSCULAR HEMOGLOBIN 28.9 pg (27.0-31.0); MEAN CORPUSCULAR HGB CONC 32.1 g/dL (33.0-37.0); MEAN PLATELET VOLUME 7.6 fl (7.2-11.7); MONO # 0.8 K/uL (0.0-0.8); MONO % 11.9 % (0.0-10.0); NEUT # 4.4 K/uL (1.8-7.0); NEUT % 65.4 % (50.0-75.0); NRBC % 0.1 % (0.0-0.0); RED CELL DISTRIBUTION WIDTH 15.2 % (11.5-14.5); WHITE BLOOD COUNT 6.8 K/uL (4.8-10.8)
[2017-02-02 05:33] LABS: BLOOD UREA NITROGEN 5 mg/dl (7-17); CALCIUM 8.7 mg/dL (8.4-10.2); CARBON DIOXIDE 24 mmol/L (22-30); CHLORIDE 102 mmol/L (98-107); GFR AFRICAN-AMERICAN > 60; GLUCOSE,RANDOM 90 mg/dL (65-105); POTASSIUM 3.6 MMOL/L (3.6-5.0); SODIUM 134 mmol/l (132-148)
--- NOTE | 2017-02-02 08:26 | CP.PCM.PN ---
Subjective - Date & Time of Evaluation Date of Evaluation: 02/02/17 Time of Evaluation: 08:28 - Subjective Subjective: NO NEW COMPLAINTS MOVED BOWELS NO NAUSEA/VOMITING/ABDOMINAL PAINS Objective - Vital Signs/Intake and Output Vital Signs (last 24 hours): Temp Pulse Resp BP Pulse Ox 97.4 F L 89 16 116/71 97 02/02/17 07:42 02/02/17 07:42 02/02/17 07:42 02/02/17 07:42 02/02/17 07:42 Intake and Output: 02/02/17 02/02/17 06:59 18:59 Intake Total 604 Output Total 900 Balance -296 - Medications Medications: Current Medications Dabigatran (Pradaxa) 75 mg PO BID [facility] PRN Reason: Protocol Digoxin (Lanoxin) 0.25 mg PO DAILY [facility] Docusate Sodium (Colace) 100 mg PO BID [facility] Last Admin: 02/01/17 16:52 Dose: 100 mg Ondansetron HCl (Zofran Inj) 4 mg IVP Q6 PRN PRN Reason: Nausea/Vomiting Last Admin: 01/31/17 12:47 Dose: 4 mg Pantoprazole Sodium (Protonix Inj) 40 mg IVP DAILY [facility] Last Admin: 02/01/17 10:25 Dose: 40 mg - Labs Labs: 02/02/17 04:30 02/02/17 04:30 PT 14.7 SECONDS (9.6-11.2) H 01/28/17 05:45 INR 1.41 (0.92-1.08) H 01/28/17 05:45 APTT 36.8 SECONDS (23.3-32.5) H 01/28/17 05:45 - Constitutional Appears: Well - Head Exam Head Exam: ATRAUMATIC, NORMAL INSPECTION, NORMOCEPHALIC - Eye Exam Eye Exam: EOMI, Normal appearance, PERRL Pupil Exam: NORMAL ACCOMODATION, PERRL - ENT Exam ENT Exam: Mucous Membranes Moist, Normal Exam - Neck Exam Neck Exam: Full ROM, Normal Inspection. absent: Lymphadenopathy - Respiratory Exam Respiratory Exam: Clear to Ausculation Bilateral, NORMAL BREATHING PATTERN - Cardiovascular Exam Cardiovascular Exam: REGULAR RHYTHM, +S1, +S2. absent: Murmur - GI/Abdominal Exam GI & Abdominal Exam: Soft, Normal Bowel Sounds. absent: Tenderness - Rectal Exam Rectal Exam: NORMAL INSPECTION - Extremities Exam Extremities Exam: Full ROM, Normal Capillary Refill, Normal Inspection. absent : Joint Swelling, Pedal Edema - Back Exam Back Exam: NORMAL INSPECTION - Neurological Exam Neurological Exam: Alert, Awake, CN II-XII Intact, Normal Gait, Oriented x3 - Psychiatric Exam Psychiatric exam: Normal Affect, Normal Mood - Skin Skin Exam: Dry, Intact, Normal Color, Warm Assessment and Plan - Assessment and Plan (Free Text) Assessment: INTESTINAL OBSTRUCTION RESOLVED ATRIAL FIB--CHRONIC--CONTROLLED V RESPONSE HX OF HYPOTHYROIDISM SEPSIS-UNDETERMINED ETHIOLOGY ANEMIA OF CHRONIC DZ Plan: CONTINUE PRESENT RX ADVANCE DIET RESTART ANTICOAGULATION RX FOR A.FIB TRANSFER TO TELE
[2017-02-02] MEDS ORDERED: Digoxin 250 mcg (0.25 mg) Tab PO SCH (09:00)
--- NOTE | 2017-02-02 09:06 | CP.PCM.PN ---
<Latasha Ambrose - Last Filed: 02/02/17 09:28> Subjective - Date & Time of Evaluation Date of Evaluation: 02/02/17 Time of Evaluation: 07:00 - Subjective Subjective: General Surgery progress note for Dr. Castaneda Pt s/e at bedside this AM. Patient had a large liquid BM last night, and denies any nausea or vomiting overnight though patient did have one episode of yellow vomit without nausea yesterday afternoon. Denies any abdominal pain or any other complaints Objective - Vital Signs/Intake and Output Vital Signs (last 24 hours): Temp Pulse Resp BP Pulse Ox 97.4 F L 89 16 116/71 97 02/02/17 07:42 02/02/17 07:42 02/02/17 07:42 02/02/17 07:42 02/02/17 07:42 Intake and Output: 02/02/17 02/02/17 06:59 18:59 Intake Total 604 Output Total 900 Balance -296 - Medications Medications: Current Medications Dabigatran (Pradaxa) 75 mg PO BID [facility] PRN Reason: Protocol Digoxin (Lanoxin) 0.25 mg PO DAILY [facility] Docusate Sodium (Colace) 100 mg PO BID [facility] Ondansetron HCl (Zofran Inj) 4 mg IVP Q6 PRN PRN Reason: Nausea/Vomiting Pantoprazole Sodium (Protonix Inj) 40 mg IVP DAILY [facility] - Labs Labs: 02/02/17 04:30 02/02/17 04:30 PT 14.7 SECONDS (9.6-11.2) H 01/28/17 05:45 INR 1.41 (0.92-1.08) H 01/28/17 05:45 APTT 36.8 SECONDS (23.3-32.5) H 01/28/17 05:45 - Constitutional Appears: Well, Non-toxic, No Acute Distress - Head Exam Head Exam: ATRAUMATIC, NORMOCEPHALIC - Eye Exam Eye Exam: Normal appearance. absent: Conjunctival injection, Scleral icterus - ENT Exam ENT Exam: Mucous Membranes Moist, Normal Oropharynx - Respiratory Exam Respiratory Exam: NORMAL BREATHING PATTERN. absent: Accessory Muscle Use, Respiratory Distress - Cardiovascular Exam Cardiovascular Exam: RRR - GI/Abdominal Exam GI & Abdominal Exam: Distended (mild), Soft. absent: Tenderness - Extremities Exam Extremities Exam: absent: Calf Tenderness, Pedal Edema, Tenderness - Neurological Exam Neurological Exam: Alert, Awake, Oriented x3 - Psychiatric Exam Psychiatric exam: Normal Affect, Normal Mood - Skin Skin Exam: Dry, Intact, Normal Color, Warm Assessment and Plan - Assessment and Plan (Free Text) Assessment: 81F with ileus vs SBO which has resolved Large BM last night Abdominal exam: mild distention but soft/nontender Plan: Advance diet to FLD and then advance as tolerated with a goal of heart healthy Continue to monitor bowel function/diet tolerance Continue current management per the primary team Continue DVT/GI ppx At this time, surgical team will sign off. Please reach out to the surgical team for any further question and concerns Thank you for this consult Discussed with Dr. Leonel Ambrose, PGY1 <Roosevelt Castaneda - Last Filed: 02/02/17 19:12> Objective - Vital Signs/Intake and Output Vital Signs (last 24 hours): Temp Pulse Resp BP Pulse Ox 97.7 F 91 H 18 150/72 95 02/02/17 17:25 02/02/17 17:25 02/02/17 17:25 02/02/17 17:25 02/02/17 17:25 Intake and Output: 02/02/17 02/03/17 18:59 06:59 Intake Total 1200 Output Total 250 Balance 950 - Medications Medications: Current Medications Dabigatran (Pradaxa) 75 mg PO BID [facility] PRN Reason: Protocol Last Admin: 02/02/17 17:02 Dose: 75 mg Digoxin (Lanoxin) 0.25 mg PO DAILY [facility] Last Admin: 02/02/17 10:11 Dose: 0.25 mg Docusate Sodium (Colace) 100 mg PO BID [facility] Last Admin: 02/02/17 16:30 Dose: Not Given Ondansetron HCl (Zofran Inj) 4 mg IVP Q6 PRN PRN Reason: Nausea/Vomiting Pantoprazole Sodium (Protonix Inj) 40 mg IVP DAILY [facility] Last Admin: 02/02/17 09:31 Dose: 40 mg - Labs Labs: 02/02/17 04:30 02/02/17 04:30 PT 14.7 SECONDS (9.6-11.2) H 01/28/17 05:45 INR 1.41 (0.92-1.08) H 01/28/17 05:45 APTT 36.8 SECONDS (23.3-32.5) H 01/28/17 05:45 Attending/Attestation - Attestation I have personally seen and examined this patient.: Yes I have fully participated in the care of the patient.: Yes I have reviewed all pertinent clinical information, including history, physical exam and plan: Yes Notes (Text): 02/02/17 19:10 Pt was seen and examined at bedside on 02/02/17 Agree with above note and assessment. Pt with resolved PSBO. Plan d.w pt in detail f.U PRN
[2017-02-02] MEDS: Digoxin 250 mcg (0.25 mg) Tab PO SCH (10:11)
--- NOTE | 2017-02-02 14:42 | CP.PCM.PN ---
Subjective - Date & Time of Evaluation Date of Evaluation: 02/02/17 Time of Evaluation: 14:40 - Subjective Subjective: tolerating diet Objective - Vital Signs/Intake and Output Vital Signs (last 24 hours): Temp Pulse Resp BP Pulse Ox 97.9 F 105 H 17 115/73 96 02/02/17 12:00 02/02/17 12:00 02/02/17 12:00 02/02/17 12:00 02/02/17 12:00 Intake and Output: 02/02/17 02/02/17 06:59 18:59 Intake Total 604 720 Output Total 900 250 Balance -296 470 - Medications Medications: Current Medications Dabigatran (Pradaxa) 75 mg PO BID [facility] PRN Reason: Protocol Last Admin: 02/02/17 09:32 Dose: 75 mg Digoxin (Lanoxin) 0.25 mg PO DAILY [facility] Last Admin: 02/02/17 10:11 Dose: 0.25 mg Docusate Sodium (Colace) 100 mg PO BID [facility] Last Admin: 02/02/17 08:50 Dose: Not Given Ondansetron HCl (Zofran Inj) 4 mg IVP Q6 PRN PRN Reason: Nausea/Vomiting Pantoprazole Sodium (Protonix Inj) 40 mg IVP DAILY [facility] Last Admin: 02/02/17 09:31 Dose: 40 mg - Labs Labs: 02/02/17 04:30 02/02/17 04:30 PT 14.7 SECONDS (9.6-11.2) H 01/28/17 05:45 INR 1.41 (0.92-1.08) H 01/28/17 05:45 APTT 36.8 SECONDS (23.3-32.5) H 01/28/17 05:45 - GI/Abdominal Exam GI & Abdominal Exam: Soft, Normal Bowel Sounds Assessment and Plan - Assessment and Plan (Free Text) Assessment: 81 yo with sbo resolving dc planning
[2017-02-03 07:51] VITALS: RESP 18
[2017-02-03 09:11] VITALS: PULSE 77
[2017-02-03] MEDS: Digoxin 250 mcg (0.25 mg) Tab PO SCH (09:11)
--- NOTE | 2017-02-03 09:30 | CP.PCM.PN ---
Subjective - Date & Time of Evaluation Date of Evaluation: 02/03/17 Time of Evaluation: 09:30 - Subjective Subjective: NO APPARENT DISTRESS TRANSFERRED OUT OF ICU REQUESTS SUBACUTE CARE Objective - Vital Signs/Intake and Output Vital Signs (last 24 hours): Temp Pulse Resp BP Pulse Ox 97.9 F 77 18 146/78 97 02/03/17 07:51 02/03/17 07:51 02/03/17 07:51 02/03/17 07:51 02/03/17 07:51 - Medications Medications: Current Medications Dabigatran (Pradaxa) 75 mg PO BID [facility] 234 BEDS AT THE [facility] PRN Reason: Protocol Last Admin: 02/03/17 09:10 Dose: 75 mg Digoxin (Lanoxin) 0.25 mg PO DAILY COUNTS INCLUDE 234 BEDS AT THE [facility] Last Admin: 02/03/17 09:11 Dose: 0.25 mg Docusate Sodium (Colace) 100 mg PO BID COUNTS INCLUDE 234 BEDS AT THE [facility] Last Admin: 02/03/17 09:11 Dose: Not Given Ondansetron HCl (Zofran Inj) 4 mg IVP Q6 PRN PRN Reason: Nausea/Vomiting Pantoprazole Sodium (Protonix Inj) 40 mg IVP DAILY COUNTS INCLUDE 234 BEDS AT THE [facility] Last Admin: 02/03/17 09:11 Dose: 40 mg - Labs Labs: 02/02/17 04:30 02/02/17 04:30 PT 14.7 SECONDS (9.6-11.2) H 01/28/17 05:45 INR 1.41 (0.92-1.08) H 01/28/17 05:45 APTT 36.8 SECONDS (23.3-32.5) H 01/28/17 05:45 - Constitutional Appears: Well - Head Exam Head Exam: ATRAUMATIC, NORMAL INSPECTION, NORMOCEPHALIC - Eye Exam Eye Exam: EOMI, Normal appearance, PERRL Pupil Exam: NORMAL ACCOMODATION, PERRL - ENT Exam ENT Exam: Mucous Membranes Moist, Normal Exam - Neck Exam Neck Exam: Full ROM, Normal Inspection. absent: Lymphadenopathy - Respiratory Exam Respiratory Exam: Clear to Ausculation Bilateral, NORMAL BREATHING PATTERN - Cardiovascular Exam Cardiovascular Exam: Irregular Rhythm, +S1, +S2. absent: Murmur - GI/Abdominal Exam GI & Abdominal Exam: Soft, Normal Bowel Sounds. absent: Tenderness - Rectal Exam Rectal Exam: NORMAL INSPECTION - Extremities Exam Extremities Exam: Full ROM, Normal Capillary Refill, Normal Inspection. absent : Joint Swelling, Pedal Edema - Back Exam Back Exam: NORMAL INSPECTION - Neurological Exam Neurological Exam: Alert, Awake, CN II-XII Intact, Normal Gait, Oriented x3 - Psychiatric Exam Psychiatric exam: Normal Affect, Normal Mood - Skin Skin Exam: Dry, Intact, Normal Color, Warm Assessment and Plan - Assessment and Plan (Free Text) Assessment: INTESTINAL OBSTRUCTION RESOLVED ATRIAL FIB-CONTROLLED V.RESPONSE ANEMIA-STABLE SEPSIS-RESOLVED-?ETIOLOGY Plan: PT EVAL TRANSFER TO TCU MONITOR LYTES AND DIG LEVEL
[2017-02-03 12:02] VITALS: BP 100/72; PULSE 92; TEMP 97.8; O2SAT 100
--- NOTE | 2017-02-04 09:52 | CP.PCM.DIS ---
Provider - Provider Date of Admission: 01/27/17 23:34 Attending physician: Yomi Mir MD Time Spent in preparation of Discharge (in minutes): 30 Diagnosis - Discharge Diagnosis (1) Afib Status: Acute (2) SBO (small bowel obstruction) Status: Acute (3) Sepsis Status: Acute Hospital Course - Lab Results Lab Results: Micro Results 01/28/17 04:00 Naris MRSA Culture (Admit) - Final MRSA NOT DETECTED 01/27/17 23:45 Urine Urine Culture - Final 50-100,000 CFU/ML. MULTIPLE SPECIES. SUGGEST REPEAT SPECIMEM. Most Recent Lab Values WBC 6.8 K/uL (4.8-10.8) 02/02/17 04:30 RBC 3.89 Mil/uL (3.80-5.20) 02/02/17 04:30 Hgb 11.2 g/dL (12.0-16.0) L 02/02/17 04:30 Hct 35.1 % (34.0-47.0) 02/02/17 04:30 MCV 90.2 fl (81.0-99.0) 02/02/17 04:30 MCH 28.9 pg (27.0-31.0) 02/02/17 04:30 MCHC 32.1 g/dL (33.0-37.0) L 02/02/17 04:30 RDW 15.2 % (11.5-14.5) H 02/02/17 04:30 Plt Count 209 K/uL (130-400) 02/02/17 04:30 MPV 7.6 fl (7.2-11.7) 02/02/17 04:30 Neut % (Auto) 65.4 % (50.0-75.0) 02/02/17 04:30 Lymph % (Auto) 19.3 % (20.0-40.0) L 02/02/17 04:30 Hardeman % (Auto) 11.9 % (0.0-10.0) H 02/02/17 04:30 Eos % (Auto) 2.6 % (0.0-4.0) 02/02/17 04:30 Baso % (Auto) 0.8 % (0.0-2.0) 02/02/17 04:30 Neut # 4.4 K/uL (1.8-7.0) 02/02/17 04:30 Lymph # 1.3 K/uL (1.0-4.3) 02/02/17 04:30 Hardeman # 0.8 K/uL (0.0-0.8) 02/02/17 04:30 Eos # 0.2 K/uL (0.0-0.7) 02/02/17 04:30 Baso # 0.1 K/uL (0.0-0.2) 02/02/17 04:30 Neutrophils % (Manual) 89 % (42-75) H 01/27/17 21:05 Band Neutrophils % 1 % (0-2) 01/27/17 21:05 Lymphocytes % (Manual) 6 % (20-50) L 01/27/17 21:05 Monocytes % (Manual) 4 % (0-10) 01/27/17 21:05 Platelet Estimate Normal (NORMAL) 01/27/17 21:05 Anisocytosis (manual) Slight 01/27/17 21:05 PT 14.7 SECONDS (9.6-11.2) H 01/28/17 05:45 INR 1.41 (0.92-1.08) H 01/28/17 05:45 APTT 36.8 SECONDS (23.3-32.5) H 01/28/17 05:45 pO2 26 mm/Hg (30-55) L 01/28/17 01:53 VBG pH 7.34 (7.32-7.43) 01/28/17 01:53 VBG pCO2 45 mmHg (40-60) 01/28/17 01:53 VBG HCO3 22.1 mmol/L 01/28/17 01:53 VBG Total CO2 25.7 mmol/L (22-28) 01/28/17 01:53 VBG O2 Sat (Calc) 42.8 % (40-65) 01/28/17 01:53 VBG Base Excess -1.7 mmol/L (0.0-2.0) L 01/28/17 01:53 VBG Potassium 4.4 mmol/L (3.6-5.2) 01/28/17 01:53 Sodium 135.0 mmol/L (132-148) 01/28/17 01:53 Chloride 103.0 mmol/L (98-107) 01/28/17 01:53 Glucose 127 mg/dL (65-105) H 01/28/17 01:53 Lactate 1.5 mmol/L (0.7-2.1) 01/28/17 01:53 FiO2 21.0 % 01/28/17 01:53 Sodium 134 mmol/l (132-148) 02/02/17 04:30 Potassium 3.6 MMOL/L (3.6-5.0) 02/02/17 04:30 Chloride 102 mmol/L (98-107) 02/02/17 04:30 Carbon Dioxide 24 mmol/L (22-30) 02/02/17 04:30 Anion Gap 12 (10-20) 02/02/17 04:30 BUN 5 mg/dl (7-17) L 02/02/17 04:30 Creatinine 0.5 mg/dL (0.7-1.2) L 02/02/17 04:30 Est GFR ( Amer) > 60 02/02/17 04:30 Est GFR (Non-Af Amer) > 60 02/02/17 04:30 Random Glucose 90 mg/dL (65-105) 02/02/17 04:30 Calcium 8.7 mg/dL (8.4-10.2) 02/02/17 04:30 Total Bilirubin 0.7 mg/dl (0.2-1.3) 01/29/17 08:07 AST 25 U/L (14-36) 01/29/17 08:07 ALT 22 U/L (9-52) 01/29/17 08:07 Alkaline Phosphatase 87 U/L (38-126) 01/29/17 08:07 NT-Pro-B Natriuret Pep 3930 pg/ml (0-900) H 01/27/17 21:05 Total Protein 6.9 G/DL (6.3-8.2) 01/29/17 08:07 Albumin 3.7 g/dL (3.5-5.0) 01/29/17 08:07 Globulin 3.2 gm/dL (2.2-3.9) 01/29/17 08:07 Albumin/Globulin Ratio 1.1 (1.0-2.1) 01/29/17 08:07 Lipase 256 U/L (23-300) 01/27/17 21:05 Thyroxine (T4) 7.10 ug/dl (5.5-11.0) 01/29/17 04:45 TSH 3rd Generation 0.28 mIU/ML (0.46-4.68) L 01/29/17 04:45 Venous Blood Potassium 4.4 mmol/L (3.6-5.2) 01/28/17 01:53 Urine Color Yellow (YELLOW) 01/27/17 23:45 Urine Clarity Clear (Clear) 01/27/17 23:45 Urine pH 6.0 (5.0-8.0) 01/27/17 23:45 Ur Specific Sherrill 1.014 (1.003-1.030) 01/27/17 23:45 Urine Protein Negative mg/dL (NEGATIVE) 01/27/17 23:45 Urine Glucose (UA) Neg mg/dL (Normal) 01/27/17 23:45 Urine Ketones Negative mg/dL (NEGATIVE) 01/27/17 23:45 Urine Blood Small (NEGATIVE) 01/27/17 23:45 Urine Nitrate Negative (NEGATIVE) 01/27/17 23:45 Urine Bilirubin Negative (NEGATIVE) 01/27/17 23:45 Urine Urobilinogen 0.2-1.0 mg/dL (0.2-1.0) 01/27/17 23:45 Ur Leukocyte Esterase Trace Sky/uL (Negative) 01/27/17 23:45 Urine RBC (Auto) < 1 /hpf (0-3) 01/27/17 23:45 Urine Microscopic WBC 1 /hpf (0-5) 01/27/17 23:45 Ur Squamous Epith Cells 1 /hpf (0-5) 01/27/17 23:45 Urine Bacteria Rare (<OCC) 01/27/17 23:45 Digoxin 2.1 ng/mL (0.8-2.0) H 02/02/17 04:30 - Hospital Course Hospital Course: intestinal obstruction resolved sepsis improved moving bowels Discharge Exam - Head Exam Head Exam: ATRAUMATIC, NORMAL INSPECTION, NORMOCEPHALIC - Eye Exam Eye Exam: EOMI, Normal appearance, PERRL Pupil Exam: NORMAL ACCOMODATION, PERRL - GI/Abdominal Exam GI & Abdominal Exam: Normal Bowel Sounds - Rectal Exam Rectal Exam: NORMAL INSPECTION - Neurological Exam Neurological exam: Alert, CN II-XII Intact, Normal Gait, Oriented x3, Reflexes Normal - Psychiatric Exam Psychiatric exam: Normal Affect, Normal Mood - Skin Skin Exam: Dry, Intact, Normal Color, Warm Discharge Plan - Discharge Medications Prescriptions: Pantoprazole Sodium [Protonix] 40 mg PO DAILY #14 ect - Follow Up Plan Condition: STABLE Disposition: REHAB FACILITY/REHAB UNIT Patient education suggested?: Yes Additional Instructions: patient cleared for discharge to TCU today by cont. current rx Referrals: Yomi Mir MD [Staff Provider] -
== END 2017-02-03 14:46 | DRG 871 ==
LOC: H.ER 20:39 → H.ERHOLD 23:34 → H.ICU/CCU 01-28 02:30 → H.TEL 02-02 17:28
PROVIDERS: ADMIT Internal Medicine Pulmonary Disease; ATTEND Internal Medicine Pulmonary Disease
DX: A41.9 Sepsis, unspecified organism (principal); R57.1 Hypovolemic shock; K56.5 Intestinal adhesions [bands] with obstruction (postinfection); I11.0 Hypertensive heart disease with heart failure; E86.0 Dehydration; I50.9 Heart failure, unspecified; I48.2 Chronic atrial fibrillation; J44.9 Chronic obstructive pulmonary disease, unspecified; Z99.81 Dependence on supplemental oxygen; N39.0 Urinary tract infection, site not specified; E03.9 Hypothyroidism, unspecified; E78.5 Hyperlipidemia, unspecified; E87.6 Hypokalemia; D63.8 Anemia in other chronic diseases classified elsewhere; E78.00 Pure hypercholesterolemia, unspecified; I25.10 Atherosclerotic heart disease of native coronary artery without angina pectoris; Z87.891 Personal history of nicotine dependence; Z95.0 Presence of cardiac pacemaker; R79.89 Other specified abnormal findings of blood chemistry; K80.20 Calculus of gallbladder without cholecystitis without obstruction

== ENCOUNTER 2017-02-03 14:08 | Inpatient (IN) | payer OTHER, MEDICARE ==
[2017-02-03 14:58] VITALS: BMI 21.7
[2017-02-04] MEDS: Pantoprazole 40 mg EC Tab PO SCH (08:23)
[2017-02-04] MEDS: Digoxin 250 mcg (0.25 mg) Tab PO SCH (09:55)
--- NOTE | 2017-02-04 10:13 | HP ---
HISTORY OF PRESENT ILLNESS: The patient is an 81-year-old female who was admitted via the regular ri [facility] floor after she spent time in the intensive care unit with intestinal obstruction, dehydration, sepsis and rapid atrial fibrillation. She had nausea, vomiting and one episode of watery diarrhea p rior to admission to the hospital. In intensive care unit, she improved with resolution of intestina l obstruction under conservative measures. NG tube was placed with intermittent suction and then carol lly removed after the obstruction resolved. PAST MEDICAL HISTORY: Chronic atrial fibrillation on anticoagulation therapy with Pradaxa. She also has a history of kidney surgery, right kidney, which had a stent placed years ago and chest tube for drainage of pleural effusion. 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 FAMILY HISTORY: Noncontributory. SOCIAL HISTORY: She does not smoke or drink and lives at home with family. REVIEW OF SYSTEMS: Essentially remarkable for constipation. PHYSICAL EXAMINATION: GENERAL: The patient is alert, oriented. VITAL SIGNS: Remarkable for blood pressure of 132/82, pulse of 79, respiratory rate 18 per minute. She is afebrile. O2 sat is 97% on nasal cannula oxygen. SKIN: Shows fair turgor. HEENT: Pupils equal and react to light and accommodation. Mouth shows fair hygiene. NECK: JVP flat. LUNGS: Clear. HEART: Irregular rhythm, but controlled (atrial fibrillation). ABDOMEN: Soft, nontender, no organomegaly. There are normoactive bowel sounds. EXTREMITIES: Shows no edema or cyanosis. CENTRAL NERVOUS SYSTEM: Grossly intact. LABORATORY DATA: Pending. IMPRESSION: Intestinal obstruction, resolved. Cardiac arrhythmias (atrial fibrillation) with contro lled ventricular response, sepsis appears to have improved. Still on IV antibiotics. 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 PLAN: Continue IV antibiotics. Continue physical therapy and occupational therapy. Further therapy will depend on findings. The patient will be discharged home once clinically stable. Yomi Mir MD cc: 62 TT: 02/04/2017 10:12:44 robb
[2017-02-04 16:16] VITALS: RESP 20
[2017-02-05 07:45] LABS: MEAN CELL VOLUME 89.7 fl (81.0-99.0); MEAN CORPUSCULAR HEMOGLOBIN 29.1 pg (27.0-31.0); MEAN CORPUSCULAR HGB CONC 32.4 g/dL (33.0-37.0); RED CELL DISTRIBUTION WIDTH 15.8 % (11.5-14.5); WHITE BLOOD COUNT 7.6 K/uL (4.8-10.8)
[2017-02-05 07:58] LABS: BLOOD UREA NITROGEN 11 mg/dl (7-17); CALCIUM 8.8 mg/dL (8.4-10.2); CARBON DIOXIDE 27 mmol/L (22-30); CHLORIDE 100 mmol/L (98-107); GFR AFRICAN-AMERICAN > 60; GLUCOSE,RANDOM 86 mg/dL (65-105); POTASSIUM 3.6 MMOL/L (3.6-5.0); SODIUM 137 mmol/l (132-148)
[2017-02-05] MEDS: Pantoprazole 40 mg EC Tab PO SCH (08:28)
[2017-02-05] MEDS: Digoxin 250 mcg (0.25 mg) Tab PO SCH (08:28)
--- NOTE | 2017-02-05 08:56 | CP.PCM.PN ---
Subjective - Date & Time of Evaluation Date of Evaluation: 02/05/17 Time of Evaluation: 08:56 - Subjective Subjective: NO COMPLAINTS NO CHEST PAINS/SOB MOVED BOWELS TODAY VSS Objective - Vital Signs/Intake and Output Vital Signs (last 24 hours): Temp Pulse Resp BP Pulse Ox 97.7 F 75 20 104/56 L 100 02/05/17 08:09 02/05/17 08:09 02/05/17 08:09 02/05/17 08:09 02/05/17 08:09 - Medications Medications: Current Medications Dabigatran (Pradaxa) 75 mg PO BID [facility] PRN Reason: Protocol Last Admin: 02/05/17 08:28 Dose: 75 mg Digoxin (Lanoxin) 0.25 mg PO DAILY [facility] Last Admin: 02/05/17 08:28 Dose: 0.25 mg Docusate Sodium (Colace) 100 mg PO BID [facility] Last Admin: 02/05/17 08:28 Dose: Not Given Pantoprazole Sodium (Protonix Ec Tab) 40 mg PO DAILY [facility] Last Admin: 02/05/17 08:28 Dose: 40 mg - Labs Labs: 02/05/17 07:26 02/05/17 07:26 - Constitutional Appears: Well - Head Exam Head Exam: ATRAUMATIC, NORMAL INSPECTION, NORMOCEPHALIC - Eye Exam Eye Exam: EOMI, Normal appearance, PERRL Pupil Exam: NORMAL ACCOMODATION, PERRL - ENT Exam ENT Exam: Mucous Membranes Moist, Normal Exam - Neck Exam Neck Exam: Full ROM, Normal Inspection. absent: Lymphadenopathy - Respiratory Exam Respiratory Exam: Clear to Ausculation Bilateral, NORMAL BREATHING PATTERN - Cardiovascular Exam Cardiovascular Exam: Irregular Rhythm, +S1, +S2. absent: Murmur - GI/Abdominal Exam GI & Abdominal Exam: Soft, Normal Bowel Sounds. absent: Tenderness - Rectal Exam Rectal Exam: NORMAL INSPECTION - Extremities Exam Extremities Exam: Full ROM, Normal Capillary Refill, Normal Inspection. absent : Joint Swelling, Pedal Edema - Back Exam Back Exam: NORMAL INSPECTION - Neurological Exam Neurological Exam: Alert, Awake, CN II-XII Intact, Normal Gait, Oriented x3 - Psychiatric Exam Psychiatric exam: Normal Affect, Normal Mood - Skin Skin Exam: Dry, Intact, Normal Color, Warm Assessment and Plan - Assessment and Plan (Free Text) Assessment: INT OBSTRUCTION RESOLVED ATRIAL FIB-CONTROLLED V.RESPONSE Plan: CONTINUE PRESENT RX
[2017-02-05] MEDS ORDERED: Albuterol-Ipratrop 3 mg / 0.5 (3 ml) UD INH PRN (13:33)
--- NOTE | 2017-02-06 07:27 | CARD ---
APPROVED REPORT EKG Measurement Heart [id number] <Conclusion> Atrial fibrillation with rapid ventricular response Marked ST abnormality, possible inferolateral subendocardial injury Abnormal ECG
[2017-02-06] MEDS: Pantoprazole 40 mg EC Tab PO SCH (08:09)
--- NOTE | 2017-02-06 13:41 | CP.PCM.PN ---
Subjective - Date & Time of Evaluation Date of Evaluation: 02/06/17 Time of Evaluation: 13:41 - Subjective Subjective: FEELS WELL NO RECURRENCE OF NAUSEA/VOMITING MOVING BOWELS Objective - Vital Signs/Intake and Output Vital Signs (last 24 hours): Temp Pulse Resp BP Pulse Ox 98.5 F 107 H 20 131/73 98 02/06/17 08:11 02/06/17 08:11 02/06/17 08:11 02/06/17 08:11 02/06/17 08:11 - Medications Medications: Current Medications Albuterol/Ipratropium (Duoneb 3 Mg/0.5 Mg (3 Ml) Ud) 3 ml INH RQ6 PRN PRN Reason: Shortness of Breath Dabigatran (Pradaxa) 75 mg PO BID [facility] PRN Reason: Protocol Last Admin: 02/06/17 08:09 Dose: 75 mg Digoxin (Lanoxin) 0.25 mg PO DAILY [facility] Last Admin: 02/05/17 08:28 Dose: 0.25 mg Docusate Sodium (Colace) 100 mg PO BID [facility] Last Admin: 02/06/17 08:08 Dose: Not Given Pantoprazole Sodium (Protonix Ec Tab) 40 mg PO DAILY [facility] Last Admin: 02/06/17 08:09 Dose: 40 mg - Labs Labs: 02/05/17 07:26 02/05/17 07:26 - Constitutional Appears: Well - Head Exam Head Exam: ATRAUMATIC, NORMAL INSPECTION, NORMOCEPHALIC - Eye Exam Eye Exam: EOMI, Normal appearance, PERRL Pupil Exam: NORMAL ACCOMODATION, PERRL - ENT Exam ENT Exam: Mucous Membranes Moist, Normal Exam - Neck Exam Neck Exam: Full ROM, Normal Inspection. absent: Lymphadenopathy - Respiratory Exam Respiratory Exam: Clear to Ausculation Bilateral, NORMAL BREATHING PATTERN - Cardiovascular Exam Cardiovascular Exam: Irregular Rhythm, +S1, +S2. absent: Murmur - GI/Abdominal Exam GI & Abdominal Exam: Soft, Normal Bowel Sounds. absent: Tenderness - Rectal Exam Rectal Exam: NORMAL INSPECTION - Extremities Exam Extremities Exam: Full ROM, Normal Capillary Refill, Normal Inspection. absent : Joint Swelling, Pedal Edema - Back Exam Back Exam: NORMAL INSPECTION - Neurological Exam Neurological Exam: Alert, Awake, CN II-XII Intact, Normal Gait, Oriented x3 - Psychiatric Exam Psychiatric exam: Normal Affect, Normal Mood - Skin Skin Exam: Dry, Intact, Normal Color, Warm Assessment and Plan - Assessment and Plan (Free Text) Assessment: INTESTINAL OBSTRUCTION RESOLVED ELEVATED DIGOXIN LEVEL ATRIAL FIB--CONTROLLED V.RESPONSE Plan: DISCHARGE IN AM LOWE DIGOXIN DOSE SUGGES OUT PT EGD/COLONOSCOPY--PT WILL FOLLOW UP WITH PMD AND DISCUS SAME
[2017-02-07] MEDS: Pantoprazole 40 mg EC Tab PO SCH (08:43)
[2017-02-07 08:44] VITALS: PULSE 88
[2017-02-07 08:49] VITALS: PULSE 89; TEMP 97.9; O2SAT 99
[2017-02-07] MEDS ORDERED: Digoxin 125 mcg (0.125 mg) Tab PO SCH (09:00)
--- NOTE | 2017-02-07 10:49 | CP.PCM.DIS ---
Provider - Provider Date of Admission: 02/03/17 14:58 Attending physician: Yomi Mir MD Time Spent in preparation of Discharge (in minutes): 30 Diagnosis - Discharge Diagnosis (1) Afib Status: Acute (2) SBO (small bowel obstruction) Status: Acute (3) Sepsis Status: Acute Hospital Course - Lab Results Lab Results: Most Recent Lab Values WBC 7.6 K/uL (4.8-10.8) 02/05/17 07:26 RBC 4.12 Mil/uL (3.80-5.20) 02/05/17 07:26 Hgb 12.0 g/dL (12.0-16.0) 02/05/17 07:26 Hct 37.0 % (34.0-47.0) 02/05/17 07:26 MCV 89.7 fl (81.0-99.0) 02/05/17 07:26 MCH 29.1 pg (27.0-31.0) 02/05/17 07:26 MCHC 32.4 g/dL (33.0-37.0) L 02/05/17 07:26 RDW 15.8 % (11.5-14.5) H 02/05/17 07:26 Plt Count 269 K/uL (130-400) 02/05/17 07:26 Sodium 137 mmol/l (132-148) 02/05/17 07:26 Potassium 3.6 MMOL/L (3.6-5.0) 02/05/17 07:26 Chloride 100 mmol/L (98-107) 02/05/17 07:26 Carbon Dioxide 27 mmol/L (22-30) 02/05/17 07:26 Anion Gap 14 (10-20) 02/05/17 07:26 BUN 11 mg/dl (7-17) 02/05/17 07:26 Creatinine 0.6 mg/dL (0.7-1.2) L 02/05/17 07:26 Est GFR ( Amer) > 60 02/05/17 07:26 Est GFR (Non-Af Amer) > 60 02/05/17 07:26 Random Glucose 86 mg/dL (65-105) 02/05/17 07:26 Calcium 8.8 mg/dL (8.4-10.2) 02/05/17 07:26 Digoxin 2.1 ng/mL (0.8-2.0) H 02/05/17 09:07 - Hospital Course Hospital Course: CLINICALLY IMPROVED WITH THERAPY NO CHEST PAINS/SOB SMALL BOWEL OBSTRUCTION RESOLVED MOVES BOWELS REGULARLY Discharge Exam - Head Exam Head Exam: ATRAUMATIC, NORMAL INSPECTION, NORMOCEPHALIC - Eye Exam Eye Exam: EOMI, Normal appearance, PERRL Pupil Exam: NORMAL ACCOMODATION, PERRL - GI/Abdominal Exam GI & Abdominal Exam: Normal Bowel Sounds - Rectal Exam Rectal Exam: NORMAL INSPECTION - Neurological Exam Neurological exam: Alert, CN II-XII Intact, Normal Gait, Oriented x3, Reflexes Normal - Psychiatric Exam Psychiatric exam: Normal Affect, Normal Mood - Skin Skin Exam: Dry, Intact, Normal Color, Warm Discharge Plan - Follow Up Plan Condition: GOOD Disposition: HOME/ ROUTINE Patient education suggested?: Yes Additional Instructions: CONTINUE DIGOXIN ,PRADAXA AND COLACE THERAPY FOLLOWUP WITH PRIVATE PHYSICIAN IN 1 WEEK
[2017-02-08 19:43] VITALS: BP 119/70
== END 2017-02-07 13:00 | disposition home or self-care (01) | DRG 872 ==
LOC: H.TCU 14:58
PROVIDERS: ADMIT Internal Medicine Pulmonary Disease; ATTEND Internal Medicine Pulmonary Disease
PROC: F07L0FZ Range of Motion and Joint Mobility Treatment of Musculoskeletal System - Lower Back / Lower Extremity using Assistive, Adaptive, Supportive or Protective Equipment (ICD-10-PCS; principal; 2017-02-03)
PROC: F07K0FZ Range of Motion and Joint Mobility Treatment of Musculoskeletal System - Upper Back / Upper Extremity using Assistive, Adaptive, Supportive or Protective Equipment (ICD-10-PCS; 2017-02-03)
PROC: F08Z4ZZ Home Management Treatment (ICD-10-PCS; 2017-02-03)
PROC: F07Z9FZ Gait Training/Functional Ambulation Treatment using Assistive, Adaptive, Supportive or Protective Equipment (ICD-10-PCS; 2017-02-03)
PROC: F07L6ZZ Therapeutic Exercise Treatment of Musculoskeletal System - Lower Back / Lower Extremity (ICD-10-PCS; 2017-02-03)
DX: A41.9 Sepsis, unspecified organism (principal); K56.60 Unspecified intestinal obstruction; I48.2 Chronic atrial fibrillation; D63.8 Anemia in other chronic diseases classified elsewhere; Z79.01 Long term (current) use of anticoagulants

== ENCOUNTER 2017-06-10 14:41 | Inpatient (IN) | payer OTHER, MEDICARE ==
[2017-06-10 17:32] VITALS: BMI 20.1
--- NOTE | 2017-06-10 18:18 | CP.PCM.HP ---
History of Present Illness - History of Present Illness History of Present Illness: 82 yo female with history of Chronic AFib, COPD and Hypothyroidism was initially admitted at [facility] because of nausea and vomiting found later secondary to non-bleeding gastric ulcer on endoscopy. She did well after she was placed on NPO and managed with Protonix. She was brought to TCU for therapy because of deconditioning. Present on Admission - Present on Admission Any Indicators Present on Admission: No History of DVT/PE: No History of Uncontrolled Diabetes: No Urinary Catheter: No Decubitus Ulcer Present: No Review of Systems - Review of Systems All systems: reviewed and no additional remarkable complaints except (aside from those mentioned above, 12 point system review were negative by me) Past Patient History - Tetanus Immunizations Tetanus Immunization: Unknown - Past Medical History & Family History Past Medical History?: Yes - Past Social History Smoking Status: Former Smoker Alcohol: None Drugs: Denies Home Situation {Lives}: With Family - CARDIAC Hx Atrial Fibrillation: Yes Hx Cardia Arrhythmia: Yes Hx Hypercholesterolemia: Yes Hx Hypotension: Yes - PULMONARY Hx Chronic Obstructive Pulmonary Disease (COPD): Yes Hx Pneumonia: Yes - NEUROLOGICAL Hx Neurological Disorder: No - HEENT Hx HEENT Problems: No - RENAL Hx Chronic Kidney Disease: No - ENDOCRINE/METABOLIC Hx Hypothyroidism: Yes - HEMATOLOGICAL/ONCOLOGICAL Hx Blood Disorders: No - INTEGUMENTARY Hx Dermatological Problems: No - MUSCULOSKELETAL/RHEUMATOLOGICAL Hx Musculoskeletal Disorders: Yes Hx Falls: Yes - GASTROINTESTINAL Hx Gastrointestinal Disorders: No - GENITOURINARY/GYNECOLOGICAL Hx Genitourinary Disorders: No - PSYCHIATRIC Hx Anxiety: Yes Hx Substance Use: No - SURGICAL HISTORY Hx Surgeries: Yes Hx Joint Replacement: Yes (left THR, 2 yrs ago) Hx Orthopedic Surgery: Yes Other/Comment: Pacemaker/ Pleurex at right chest - ANESTHESIA Hx Anesthesia: Yes Hx Anesthesia Reactions: No Hx Malignant Hyperthermia: No Meds Allergies/Adverse Reactions: Allergies Allergy/AdvReac Type Severity Reaction Status Date / Time No Known Allergies Allergy Verified 06/10/17 18:16 Physical Exam - Constitutional Appears: No Acute Distress - Head Exam Head Exam: ATRAUMATIC - Eye Exam Eye Exam: PERRL - ENT Exam ENT Exam: Mucous Membranes Moist - Neck Exam Neck exam: Negative for: Meningismus - Respiratory Exam Respiratory Exam: Decreased Breath Sounds. absent: Wheezes - Cardiovascular Exam Cardiovascular Exam: Irregular Rhythm - GI/Abdominal Exam GI & Abdominal Exam: Soft. absent: Tenderness - Rectal Exam Rectal Exam: Deferred - Extremities Exam Extremities exam: Negative for: pedal edema - Neurological Exam Neurological exam: Alert, Oriented x3 - Psychiatric Exam Psychiatric exam: Normal Affect - Skin Skin Exam: Dry, Intact Assessment & Plan - Assessment and Plan (Free Text) Assessment: 82 yo female with history of Chronic AFib, COPD and Hypothyroidism was initially admitted at [facility] because of nausea and vomiting found later secondary to non-bleeding gastric ulcer on endoscopy. She did well after she was placed on NPO and managed with Protonix. She was brought to TCU for therapy because of deconditioning. 1. Deconditioning physiatry consult with Dr Redmond PT evaluation and management 2. Chronic AFib irregular, normal rate continue Cardizem and Metoprolol on Eliquis 2.5mg PO BID 3. 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 Hypothyroid continue Levothyroxine 88mcg PO daily
[2017-06-10] MEDS: Pravastatin Sodium 20 MG TAB PO SCH (21:01)
[2017-06-11] MEDS: Levothyroxine 88 MCG TAB PO SCH (05:46)
[2017-06-11] MEDS ORDERED: Albuterol 0.083% Inhal Sol (2.5 mg/3 mL) UD INH ONE (06:06)
[2017-06-11 07:10] LABS: BASO # 0.1 K/uL (0.0-0.2); BASO % 0.5 % (0.0-2.0); EOS # 0.4 K/uL (0.0-0.7); EOS % 3.8 % (0.0-4.0); HEMATOCRIT 36.4 % (34.0-47.0); LYMPH % 18.5 % (20.0-40.0); MEAN CELL VOLUME 89.2 fl (81.0-99.0); MEAN CORPUSCULAR HEMOGLOBIN 28.7 pg (27.0-31.0); MEAN CORPUSCULAR HGB CONC 32.2 g/dL (33.0-37.0); MEAN PLATELET VOLUME 7.7 fl (7.2-11.7); MONO # 1.1 K/uL (0.0-0.8); MONO % 10.1 % (0.0-10.0); NEUT # 7.2 K/uL (1.8-7.0); NEUT % 67.1 % (50.0-75.0); RED CELL DISTRIBUTION WIDTH 19.5 % (11.5-14.5); WHITE BLOOD COUNT 10.7 K/uL (4.8-10.8)
[2017-06-11 07:37] LABS: ALKALINE PHOSPHATASE 92 U/L (38-126); ALT/SGPT 28 U/L (9-52); AST/SGOT 26 U/L (14-36); BILIRUBIN,TOTAL 0.8 mg/dl (0.2-1.3); BLOOD UREA NITROGEN 9 mg/dl (7-17); CALCIUM 8.4 mg/dL (8.4-10.2); CARBON DIOXIDE 24 mmol/L (22-30); CHLORIDE 104 mmol/L (98-107); GFR AFRICAN-AMERICAN > 60; GLUCOSE,RANDOM 89 mg/dL (65-105); POTASSIUM 3.7 MMOL/L (3.6-5.0); SODIUM 140 mmol/l (132-148); TOTAL PROTEIN 6.7 G/DL (6.3-8.2)
[2017-06-11] MEDS: Pantoprazole 40 mg EC Tab PO SCH (09:05)
[2017-06-11] MEDS: Magnesium Oxide 400 mg Tab UD PO SCH ×2 (09:05→16:37)
[2017-06-11] MEDS: Multivitamin With Minerals Tab PO SCH (09:05)
--- NOTE | 2017-06-11 14:12 | CP.PCM.PN ---
Subjective - Date & Time of Evaluation Date of Evaluation: 06/11/17 Time of Evaluation: 10:30 - Subjective Subjective: Pt seen and examined. Denied any complaint Objective - Vital Signs/Intake and Output Vital Signs (last 24 hours): Temp Pulse Resp BP Pulse Ox 98.6 F 81 20 134/84 94 L 06/11/17 08:37 06/11/17 09:05 06/11/17 08:37 06/11/17 09:05 06/11/17 08:37 - Medications Medications: Current Medications Apixaban (Eliquis) 2.5 mg PO BID [facility] PRN Reason: Protocol Clonazepam (Klonopin) 0.5 mg PO DAILY@2200 [facility] Diltiazem HCl (Cardizem) 60 mg PO Q6 [facility] Last Admin: 06/11/17 09:04 Dose: 60 mg Docusate Sodium (Colace) 100 mg PO BID [facility] Last Admin: 06/11/17 09:03 Dose: 100 mg Levothyroxine Sodium (Synthroid) 88 mcg PO DAILY@0630 [facility] Last Admin: 06/11/17 05:46 Dose: 88 mcg Magnesium Oxide (Mag-Ox) 400 mg PO BID [facility] Last Admin: 06/11/17 09:05 Dose: 400 mg Metoprolol Tartrate (Lopressor) 25 mg PO Q12 [facility] Last Admin: 06/11/17 09:05 Dose: 25 mg Midodrine (Proamatine) 10 mg PO TID [facility] Last Admin: 06/11/17 12:25 Dose: 10 mg Multivitamins/Minerals (Therapeutic-M Tab) 1 tab PO DAILY [facility] Last Admin: 06/11/17 09:05 Dose: 1 tab Pantoprazole Sodium (Protonix Ec Tab) 40 mg PO DAILY [facility] Last Admin: 06/11/17 09:05 Dose: 40 mg Pravastatin Sodium (Pravachol) 20 mg PO HS [facility] Last Admin: 06/10/17 21:01 Dose: 20 mg Trazodone HCl (Desyrel) 50 mg PO HS [facility] Last Admin: 06/10/17 22:50 Dose: 50 mg - Labs Labs: 06/11/17 06:15 06/11/17 06:15 - Constitutional Appears: No Acute Distress - Head Exam Head Exam: ATRAUMATIC - Eye Exam Eye Exam: absent: Scleral icterus - ENT Exam ENT Exam: Mucous Membranes Moist - Neck Exam Neck Exam: absent: Meningismus - Respiratory Exam Respiratory Exam: absent: Rhonchi, Wheezes, Respiratory Distress - Cardiovascular Exam Cardiovascular Exam: Irregular Rhythm - GI/Abdominal Exam GI & Abdominal Exam: Soft. absent: Tenderness - Rectal Exam Rectal Exam: Deferred - Extremities Exam Extremities Exam: absent: Pedal Edema - Neurological Exam Neurological Exam: Alert, Oriented x3 - Psychiatric Exam Psychiatric exam: Normal Affect - Skin Skin Exam: Dry, Intact Assessment and Plan - Assessment and Plan (Free Text) Assessment: 82 yo female with history of Chronic AFib, COPD and Hypothyroidism was initially admitted at [facility] because of nausea and vomiting found later secondary to non-bleeding gastric ulcer on endoscopy. She did well after she was placed on NPO and managed with Protonix. She was brought to TCU for therapy because of deconditioning. 1. Deconditioning physiatry consult with Dr Redmond PT evaluation and management 2. Gastric Ulcer continue Protonix 3. Chronic AFib irregular, normal rate continue Cardizem and Metoprolol on Eliquis 2.5mg PO BID 4. COPD Duoneb q 4hrs prn for wheezing or SOB Oxygen dependent at bedtime 5. Orthostatic Hypotension on Midodrine 10mg PO TID 6. Hypothyroid continue Levothyroxine 88mcg PO daily
--- NOTE | 2017-06-11 17:58 | CP.PCM.CON ---
History of Present Illness - History of Present Illness History of Present Illness: Dr Redmond PMR consultation on Benny Ramirez, born 1935, who has been admitted to [facility]CU following an admission at [place] for GI related ulcer pain. Stabilized and here now given deconditioning Review of Systems - Constitutional Constitutional: absent: Anorexia, Chills, Daytime Sleepiness - EENT Ears: absent: Disequilibrium, Dizziness Nose/Mouth/Throat: absent: Epistaxis, Nasal Congestion - Cardiovascular Cardiovascular: absent: Chest Pain, Lightheadedness - Respiratory Respiratory: absent: Cough, Dyspnea, Hemoptysis - Gastrointestinal Gastrointestinal: absent: Abdominal Pain, Belching - Musculoskeletal Musculoskeletal: Abnormal Gait - Integumentary Integumentary: absent: Bleeding Lesions - Neurological Neurological: absent: Abnormal Movements, Numbness - Psychiatric Psychiatric: absent: Anxiety Past Patient History - Tetanus Immunizations Tetanus Immunization: Unknown - Past Medical History & Family History Past Medical History?: Yes - Past Social History Smoking Status: Former Smoker Alcohol: None Drugs: Denies Home Situation {Lives}: Alone (elevator) - CARDIAC Hx Atrial Fibrillation: Yes Hx Cardia Arrhythmia: Yes Hx Hypercholesterolemia: Yes Hx Hypotension: Yes - PULMONARY Hx Chronic Obstructive Pulmonary Disease (COPD): Yes Hx Pneumonia: Yes - NEUROLOGICAL Hx Neurological Disorder: No - HEENT Hx HEENT Problems: No - RENAL Hx Chronic Kidney Disease: No - ENDOCRINE/METABOLIC Hx Hypothyroidism: Yes - HEMATOLOGICAL/ONCOLOGICAL Hx Blood Disorders: No - INTEGUMENTARY Hx Dermatological Problems: No - MUSCULOSKELETAL/RHEUMATOLOGICAL Hx Musculoskeletal Disorders: Yes Hx Falls: Yes - GASTROINTESTINAL Hx Gastrointestinal Disorders: No - GENITOURINARY/GYNECOLOGICAL Hx Genitourinary Disorders: No - PSYCHIATRIC Hx Anxiety: Yes Hx Substance Use: No - SURGICAL HISTORY Hx Surgeries: Yes Hx Joint Replacement: Yes (left THR, 2 yrs ago) Hx Orthopedic Surgery: Yes Other/Comment: Pacemaker/ Pleurex at right chest - ANESTHESIA Hx Anesthesia: Yes Hx Anesthesia Reactions: No Hx Malignant Hyperthermia: No Meds Allergies/Adverse Reactions: Allergies Allergy/AdvReac Type Severity Reaction Status Date / Time No Known Allergies Allergy Verified 06/10/17 18:16 - Medications Medications: Current Medications Apixaban (Eliquis) 2.5 mg PO BID [facility] PRN Reason: Protocol Last Admin: 06/11/17 16:35 Dose: 2.5 mg Clonazepam (Klonopin) 0.5 mg PO DAILY@2200 [facility] Diltiazem HCl (Cardizem) 60 mg PO Q6 [facility] Last Admin: 06/11/17 16:36 Dose: 60 mg Docusate Sodium (Colace) 100 mg PO BID [facility] Last Admin: 06/11/17 16:36 Dose: Not Given Levothyroxine Sodium (Synthroid) 88 mcg PO DAILY@0630 [facility] Last Admin: 06/11/17 05:46 Dose: 88 mcg Magnesium Oxide (Mag-Ox) 400 mg PO BID [facility] Last Admin: 06/11/17 16:37 Dose: 400 mg Metoprolol Tartrate (Lopressor) 25 mg PO Q12 [facility] Last Admin: 06/11/17 09:05 Dose: 25 mg Midodrine (Proamatine) 10 mg PO TID [facility] Last Admin: 06/11/17 16:37 Dose: 10 mg Multivitamins/Minerals (Therapeutic-M Tab) 1 tab PO DAILY [facility] Last Admin: 06/11/17 09:05 Dose: 1 tab Pantoprazole Sodium (Protonix Ec Tab) 40 mg PO DAILY [facility] Last Admin: 06/11/17 09:05 Dose: 40 mg Pravastatin Sodium (Pravachol) 20 mg PO [facility] Last Admin: 06/10/17 21:01 Dose: 20 mg Trazodone HCl (Desyrel) 50 mg PO [facility] Last Admin: 06/10/17 22:50 Dose: 50 mg Physical Exam - Constitutional Appears: Non-toxic, No Acute Distress - Head Exam Head Exam: ATRAUMATIC, NORMAL INSPECTION, NORMOCEPHALIC - Eye Exam Eye Exam: EOMI - ENT Exam ENT Exam: Mucous Membranes Moist - Respiratory Exam Respiratory Exam: NORMAL BREATHING PATTERN - GI/Abdominal Exam GI & Abdominal Exam: absent: Distended, Firm - Extremities Exam Extremities exam: Positive for: full ROM, normal inspection. Negative for: calf tenderness, joint swelling - Neurological Exam Neurological exam: Alert, CN II-XII Intact, Oriented x3 - Psychiatric Exam Psychiatric exam: Normal Affect, Normal Mood Results - Vital Signs Recent Vital Signs: Last Vital Signs Temp 96.4 F L 06/11/17 16:50 Pulse 104 H 06/11/17 16:50 Resp 18 06/11/17 16:50 BP 128/65 06/11/17 16:50 Pulse Ox 96 06/11/17 16:50 - Labs Result Diagrams: 06/11/17 06:15 06/11/17 06:15 Labs: Laboratory Results - last 24 hr 06/11/17 06/11/17 06:15 06:15 WBC 10.7 RBC 4.08 Hgb 11.7 L Hct 36.4 MCV 89.2 MCH 28.7 MCHC 32.2 L RDW 19.5 H Plt Count 272 MPV 7.7 Neut % (Auto) 67.1 Lymph % (Auto) 18.5 L [place] % (Auto) 10.1 H Eos % (Auto) 3.8 Baso % (Auto) 0.5 Neut # 7.2 H Lymph # 2.0 [place] # 1.1 H Eos # 0.4 Baso # 0.1 Sodium 140 Potassium 3.7 Chloride 104 Carbon Dioxide 24 Anion Gap 15 BUN 9 Creatinine 0.6 L Est GFR ( Amer) > 60 Est GFR (Non-Af Amer) > 60 Random Glucose 89 Calcium 8.4 Total Bilirubin 0.8 AST 26 ALT 28 Alkaline Phosphatase 92 Total Protein 6.7 Albumin 3.4 L Globulin 3.3 Albumin/Globulin Ratio 1.0 Assessment & Plan - Assessment and Plan (Free Text) Assessment: deconditioned PT/OT to continue to help increase functional independence Pain: controlled Vascular: no evidence of DVT GI: No evidence of constipation or diarrhea Patient continues to be an excellent TCU rehabilitation candidate and will have continued focused PT, OT and recreational therapy to help facilitate a safe and appropriate d/c plan
[2017-06-11] MEDS: Pravastatin Sodium 20 MG TAB PO SCH (23:17)
[2017-06-12] MEDS: Levothyroxine 88 MCG TAB PO SCH (05:59)
[2017-06-12] MEDS: Pantoprazole 40 mg EC Tab PO SCH (09:53)
[2017-06-12] MEDS: Multivitamin With Minerals Tab PO SCH (09:53)
[2017-06-12] MEDS: Magnesium Oxide 400 mg Tab UD PO SCH ×2 (09:54→17:28)
[2017-06-12] MEDS: Pravastatin Sodium 20 MG TAB PO SCH (22:00)
[2017-06-13] MEDS: Levothyroxine 88 MCG TAB PO SCH (05:41)
[2017-06-13] MEDS: Pantoprazole 40 mg EC Tab PO SCH (09:02)
[2017-06-13] MEDS: Multivitamin With Minerals Tab PO SCH (09:03)
[2017-06-13] MEDS: Magnesium Oxide 400 mg Tab UD PO SCH ×2 (09:03→16:47)
[2017-06-13] MEDS: Pravastatin Sodium 20 MG TAB PO SCH (22:15)
[2017-06-14] MEDS ORDERED: Albuterol 0.083% Inhal Sol (2.5 mg/3 mL) UD INH STA (05:19)
[2017-06-14] MEDS: Levothyroxine 88 MCG TAB PO SCH (06:27)
[2017-06-14] MEDS: Multivitamin With Minerals Tab PO SCH (09:11)
[2017-06-14] MEDS: Magnesium Oxide 400 mg Tab UD PO SCH ×2 (09:11→17:03)
[2017-06-14] MEDS: Pantoprazole 40 mg EC Tab PO SCH (09:11)
[2017-06-14] MEDS: Pravastatin Sodium 20 MG TAB PO SCH (22:06)
[2017-06-15] MEDS: Albuterol 0.083% Inhal Sol (2.5 mg/3 mL) UD INH PRN (06:30)
[2017-06-15] MEDS: Levothyroxine 88 MCG TAB PO SCH (06:31)
[2017-06-15] MEDS: Pantoprazole 40 mg EC Tab PO SCH (08:44)
[2017-06-15] MEDS: Magnesium Oxide 400 mg Tab UD PO SCH ×2 (08:44→17:21)
[2017-06-15] MEDS: Multivitamin With Minerals Tab PO SCH (08:44)
--- NOTE | 2017-06-15 10:43 | CP.PCM.PN ---
Subjective - Date & Time of Evaluation Date of Evaluation: 06/15/17 Time of Evaluation: 10:15 - Subjective Subjective: Pt seen and examined. Reported having some difficulty of breathing and left upper and shoulder pain. Improved with Duoneb by nebulizer. Objective - Vital Signs/Intake and Output Vital Signs (last 24 hours): Temp Pulse Resp BP Pulse Ox 97.9 F 74 20 110/69 93 L 06/15/17 08:25 06/15/17 09:50 06/15/17 08:25 06/15/17 09:50 06/15/17 08:25 - Medications Medications: Current Medications Acetaminophen (Tylenol 325mg Tab) 650 mg PO Q6 PRN PRN Reason: Pain, moderate (4-7) Last Admin: 06/13/17 16:51 Dose: 650 mg Albuterol Sulfate (Albuterol 0.083% Inhal [place] (2.5 Mg/3 Ml) Ud) 2.5 mg INH RQ6 PRN PRN Reason: Shortness of Breath Last Admin: 06/15/17 06:30 Dose: 2.5 mg Alprazolam (Xanax) 0.25 mg PO Q12 PRN PRN Reason: Anxiety Stop: 06/21/17 11:07 Last Admin: 06/14/17 11:56 Dose: 0.25 mg Apixaban (Eliquis) 2.5 mg PO BID [facility] PRN Reason: Protocol Last Admin: 06/15/17 08:44 Dose: 2.5 mg Clonazepam (Klonopin) 0.5 mg PO DAILY@2200 [facility] Last Admin: 06/14/17 22:04 Dose: 0.5 mg Diltiazem HCl (Cardizem) 60 mg PO Q6 [facility] Last Admin: 06/15/17 09:50 Dose: 60 mg Docusate Sodium (Colace) 100 mg PO BID [facility] Last Admin: 06/15/17 08:45 Dose: Not Given Levothyroxine Sodium (Synthroid) 88 mcg PO DAILY@0630 [facility] Last Admin: 06/15/17 06:31 Dose: 88 mcg Magnesium Oxide (Mag-Ox) 400 mg PO BID [facility] Last Admin: 06/15/17 08:44 Dose: 400 mg Metoprolol Tartrate (Lopressor) 25 mg PO Q12 [facility] Last Admin: 06/15/17 08:46 Dose: Not Given Midodrine (Proamatine) 10 mg PO TID [facility] Last Admin: 06/15/17 08:44 Dose: 10 mg Multivitamins/Minerals (Therapeutic-M Tab) 1 tab PO DAILY [facility] Last Admin: 06/15/17 08:44 Dose: 1 tab Pantoprazole Sodium (Protonix Ec Tab) 40 mg PO DAILY [facility] Last Admin: 06/15/17 08:44 Dose: 40 mg Pravastatin Sodium (Pravachol) 20 mg PO [facility] Last Admin: 06/14/17 22:06 Dose: 20 mg Trazodone HCl (Desyrel) 50 mg PO HS [facility] Last Admin: 06/14/17 22:03 Dose: 50 mg - Labs Labs: 06/11/17 06:15 06/11/17 06:15 - Constitutional Appears: No Acute Distress - Head Exam Head Exam: ATRAUMATIC - Eye Exam Eye Exam: absent: Scleral icterus - ENT Exam ENT Exam: Mucous Membranes Moist - Neck Exam Neck Exam: absent: Meningismus - Respiratory Exam Respiratory Exam: Rhonchi (rhonchi heard on both lower lung urss but more on the left). absent: Wheezes - Cardiovascular Exam Cardiovascular Exam: Irregular Rhythm - GI/Abdominal Exam GI & Abdominal Exam: Soft. absent: Tenderness - Rectal Exam Rectal Exam: Deferred - Neurological Exam Neurological Exam: Alert, Oriented x3 - Psychiatric Exam Psychiatric exam: Normal Affect - Skin Skin Exam: Dry, Intact Assessment and Plan - Assessment and Plan (Free Text) Assessment: 82 yo female with history of Chronic AFib, COPD and Hypothyroidism was initially admitted at [facility] because of nausea and vomiting found later to have non-bleeding gastric ulcer on endoscopy. She was managed with Protonix and did well. She was brought to TCU for therapy because of deconditioning. Today she complained of not feeling well associated with difficulty of breathing and left upper chest pain. 1. CHF CXray showed increased bronchovascular markings compared to xrays in Dec, 2016 ProBNP: 4400 Troponins: not elevated will add Lasix 20mg PO BID cardiology consult with Dr Ewing 2. COPD Duoneb q 4hrs prn for wheezing or SOB had relief with SOB earlier after getting Duoneb pulmonology consult with Dr Mir 3. Chronic AFib irregular, on and off tachycardia continue Cardizem and Metoprolol on Eliquis 2.5mg PO BID 4. Gastric Ulcer continue Protonix 5. Orthostatic Hypotension on Midodrine 10mg PO TID 6. Hypothyroid continue Levothyroxine 88mcg PO daily
[2017-06-15 11:24] LABS: ALB/GLOB RATIO 1.1 (1.0-2.1); ALKALINE PHOSPHATASE 95 U/L (38-126); ALT/SGPT 18 U/L (9-52); AST/SGOT 35 U/L (14-36); BILIRUBIN,TOTAL 0.8 mg/dl (0.2-1.3); BLOOD UREA NITROGEN 17 mg/dl (7-17); CALCIUM 9.1 mg/dL (8.4-10.2); CARBON DIOXIDE 24 mmol/L (22-30); CHLORIDE 103 mmol/L (98-107); GFR AFRICAN-AMERICAN > 60; GLUCOSE,RANDOM 121 mg/dL (65-105); POTASSIUM 4.2 MMOL/L (3.6-5.0); SODIUM 139 mmol/l (132-148)
[2017-06-15 11:33] LABS: BASO # 0.1 K/uL (0.0-0.2); EOS # 0.2 K/uL (0.0-0.7); EOS % 2.1 % (0.0-4.0); HEMATOCRIT 33.2 % (34.0-47.0); LYMPH # 1.1 K/uL (1.0-4.3); LYMPH % 12.4 % (20.0-40.0); MEAN CELL VOLUME 88.6 fl (81.0-99.0); MEAN CORPUSCULAR HEMOGLOBIN 28.9 pg (27.0-31.0); MEAN CORPUSCULAR HGB CONC 32.6 g/dL (33.0-37.0); MEAN PLATELET VOLUME 7.5 fl (7.2-11.7); MONO # 0.9 K/uL (0.0-0.8); MONO % 10.5 % (0.0-10.0); NEUT # 6.5 K/uL (1.8-7.0); WHITE BLOOD COUNT 8.8 K/uL (4.8-10.8)
--- NOTE | 2017-06-15 13:35 | RAD ---
HISTORY: r/o pneumonia COMPARISON: Portable chest 01/27/2017. FINDINGS: LUNGS: No acute airspace disease appreciated bilaterally. Fibrotic changes are again seen at the inferior right lung zone and minimally at the left base. PLEURA: No significant pleural effusion identified, no pneumothorax apparent. Right-sided chest tube is again seen at the right base and right apex terminating at the superior vena cava region with pacemaker again noted at the left chest terminating at the heart. CARDIOVASCULAR: Stable mild cardiomegaly. OSSEOUS STRUCTURES: No significant abnormalities. VISUALIZED UPPER ABDOMEN: Normal. OTHER FINDINGS: None. IMPRESSION: No interval acute cardiopulmonary is appreciated although fibrotic changes in the bilateral bases predominantly, right greater than left. Pacemaker and right chest tube unchanged in position grossly.
--- NOTE | 2017-06-15 16:34 | CARD ---
APPROVED REPORT EKG Measurement Heart [id number] <Conclusion> Atrial fibrillation with occasional ventricular-paced complexes RSR' or QR pattern in V1 suggests right ventricular conduction delay ST & T wave abnormality, consider inferior ischemia Abnormal ECG
[2017-06-15] MEDS: Pravastatin Sodium 20 MG TAB PO SCH (22:14)
[2017-06-16] MEDS: Albuterol 0.083% Inhal Sol (2.5 mg/3 mL) UD INH PRN ×2 (05:19→17:15)
[2017-06-16] MEDS: Levothyroxine 88 MCG TAB PO SCH (06:30)
[2017-06-16] MEDS: Pantoprazole 40 mg EC Tab PO SCH (08:44)
[2017-06-16] MEDS: Multivitamin With Minerals Tab PO SCH (08:44)
[2017-06-16] MEDS: Magnesium Oxide 400 mg Tab UD PO SCH ×2 (08:44→17:00)
[2017-06-16] MEDS ORDERED: Sodium Chloride 3% for Inhalation 4 ML VIAL.NEB IH PRN (09:28)
--- NOTE | 2017-06-16 10:22 | CP.PCM.CON ---
History of Present Illness - History of Present Illness History of Present Illness: 82 yo female with history of Chronic AFib, COPD and Hypothyroidism was initially admitted at [facility] because of nausea and vomiting found later secondary to non-bleeding gastric ulcer on endoscopy. She did well after she was placed on NPO and managed with Protonix. She was brought to TCU for therapy because of deconditioning. Cardiology Consult called for exacerbation of CHF Pt developed SOB on this admission she claims that at home she is on 3 diuretics just started on Lasix 20 yesterday claims she is braething much better but appears visibly SOB EKG: atrial fibrillation w/ PM complexes BNP: 4,400 PMH: Atrial Fibrillation, CAD, CHF, COPD, HTN, HLD, Hypothyroidism, Pneumonia, Diverticulosis; Cholelithiasis; Left renal stone, compression fx T12 and L3 Left THR Former heavy smoker PSH; Pacemaker placement, bilateral Hip replacement Past Patient History - Tetanus Immunizations Tetanus Immunization: Unknown - Past Medical History & Family History Past Medical History?: Yes - Past Social History Smoking Status: Former Smoker Alcohol: None Drugs: Denies Home Situation {Lives}: Alone (elevator) - CARDIAC Hx Atrial Fibrillation: Yes Hx Cardia Arrhythmia: Yes Hx Hypercholesterolemia: Yes Hx Hypotension: Yes - PULMONARY Hx Chronic Obstructive Pulmonary Disease (COPD): Yes Hx Pneumonia: Yes - NEUROLOGICAL Hx Neurological Disorder: No - HEENT Hx HEENT Problems: No - RENAL Hx Chronic Kidney Disease: No - ENDOCRINE/METABOLIC Hx Hypothyroidism: Yes - HEMATOLOGICAL/ONCOLOGICAL Hx Blood Disorders: No - INTEGUMENTARY Hx Dermatological Problems: No - MUSCULOSKELETAL/RHEUMATOLOGICAL Hx Musculoskeletal Disorders: Yes Hx Falls: Yes - GASTROINTESTINAL Hx Gastrointestinal Disorders: No - GENITOURINARY/GYNECOLOGICAL Hx Genitourinary Disorders: No - PSYCHIATRIC Hx Anxiety: Yes Hx Substance Use: No - SURGICAL HISTORY Hx Surgeries: Yes Hx Joint Replacement: Yes (left THR, 2 yrs ago) Hx Orthopedic Surgery: Yes Other/Comment: Pacemaker/ Pleurex at right chest - ANESTHESIA Hx Anesthesia: Yes Hx Anesthesia Reactions: No Hx Malignant Hyperthermia: No Meds Allergies/Adverse Reactions: Allergies Allergy/AdvReac Type Severity Reaction Status Date / Time No Known Allergies Allergy Verified 06/10/17 18:16 - Medications Medications: Current Medications Acetaminophen (Tylenol 325mg Tab) 650 mg PO Q6 PRN PRN Reason: Pain, moderate (4-7) Last Admin: 06/13/17 16:51 Dose: 650 mg Albuterol Sulfate (Albuterol 0.083% Inhal [place] (2.5 Mg/3 Ml) Ud) 2.5 mg INH RQ6 PRN PRN Reason: Shortness of Breath Last Admin: 06/16/17 05:19 Dose: 2.5 mg Alprazolam (Xanax) 0.25 mg PO Q12 PRN PRN Reason: Anxiety Stop: 06/21/17 11:07 Last Admin: 06/14/17 11:56 Dose: 0.25 mg Amoxicillin (Amoxil 500 Mg Cap) 500 mg PO Q8 [facility] PRN Reason: Protocol Apixaban (Eliquis) 2.5 mg PO BID [facility] PRN Reason: Protocol Last Admin: 06/16/17 08:43 Dose: 2.5 mg Clonazepam (Klonopin) 0.5 mg PO DAILY@2200 [facility] Last Admin: 06/15/17 22:14 Dose: 0.5 mg Diltiazem HCl (Cardizem) 60 mg PO Q6 [facility] Last Admin: 06/16/17 09:57 Dose: 60 mg Docusate Sodium (Colace) 100 mg PO BID [facility] Last Admin: 06/16/17 08:42 Dose: 100 mg Furosemide (Lasix) 20 mg PO BID [facility] Last Admin: 06/16/17 08:43 Dose: 20 mg Levothyroxine Sodium (Synthroid) 88 mcg PO DAILY@0630 [facility] Last Admin: 06/16/17 06:30 Dose: 88 mcg Magnesium Oxide (Mag-Ox) 400 mg PO BID [facility] Last Admin: 06/16/17 08:44 Dose: 400 mg Metoprolol Tartrate (Lopressor) 25 mg PO Q12 [facility] Last Admin: 06/16/17 08:44 Dose: 25 mg Midodrine (Proamatine) 10 mg PO TID [facility] Last Admin: 06/16/17 08:44 Dose: 10 mg Multivitamins/Minerals (Therapeutic-M Tab) 1 tab PO DAILY [facility] Last Admin: 06/16/17 08:44 Dose: 1 tab Pantoprazole Sodium (Protonix Ec Tab) 40 mg PO DAILY [facility] Last Admin: 06/16/17 08:44 Dose: 40 mg Pravastatin Sodium (Pravachol) 20 mg PO HS [facility] Last Admin: 06/15/17 22:14 Dose: 20 mg Trazodone HCl (Desyrel) 50 mg PO HS [facility] Last Admin: 06/15/17 22:14 Dose: 50 mg Physical Exam - Constitutional Appears: Well - Head Exam Head Exam: ATRAUMATIC, NORMAL INSPECTION, NORMOCEPHALIC - Eye Exam Eye Exam: EOMI, Normal appearance, PERRL - ENT Exam ENT Exam: Mucous Membranes Moist, Normal Exam - Neck Exam Neck exam: Positive for: Normal Inspection - Respiratory Exam Respiratory Exam: Decreased Breath Sounds, Rales - Cardiovascular Exam Cardiovascular Exam: Irregular Rhythm Additional comments: Atrial Fibrillation Results - Vital Signs Recent Vital Signs: Last Vital Signs Temp 97.0 F L 06/16/17 08:11 Pulse 110 H 06/16/17 09:57 Resp 20 06/16/17 08:11 BP 127/57 L 06/16/17 09:57 Pulse Ox 94 L 06/16/17 08:11 - Labs Result Diagrams: 06/15/17 11:25 06/15/17 11:01 Labs: Laboratory Results - last 24 hr 06/15/17 06/15/17 06/15/17 11:01 11:25 13:24 WBC 8.8 RBC 3.74 L Hgb 10.8 L Hct 33.2 L MCV 88.6 MCH 28.9 MCHC 32.6 L RDW 19.0 H Plt Count 340 MPV 7.5 Neut % (Auto) 74.0 Lymph % (Auto) 12.4 L [place] % (Auto) 10.5 H Eos % (Auto) 2.1 Baso % (Auto) 1.0 Neut # 6.5 Lymph # 1.1 [place] # 0.9 H Eos # 0.2 Baso # 0.1 Sodium 139 Potassium 4.2 Chloride 103 Carbon Dioxide 24 Anion Gap 16 BUN 17 Creatinine 0.7 Est GFR ( Amer) > 60 Est GFR (Non-Af Amer) > 60 Random Glucose 121 H Calcium 9.1 Total Bilirubin 0.8 AST 35 ALT 18 Alkaline Phosphatase 95 Troponin I 0.0260 NT-Pro-B Natriuret Pep 4400 H Total Protein 7.0 Albumin 3.6 Globulin 3.4 Albumin/Globulin Ratio 1.1 Assessment & Plan (1) Acute on chronic left systolic heart failure Assessment and Plan: Pt appears to be in mild CHF will increase Lasix to 40mg daily will follow with you Status: Acute (2) Atrial fibrillation with controlled ventricular rate Status: Acute (3) History of permanent cardiac pacemaker placement Status: Acute
--- NOTE | 2017-06-16 11:54 | CON ---
DATE: HISTORY OF PRESENT ILLNESS: Ms. Ramirez is an 82-year-old female who was referred for pulmonary evaluation by Dr. Baker. She was admitted to transitional care unit and became short of breath on the morning of consultation associated with cough. She was thought to have aspiration pneumonia and referred for pulmonary consult. She denies chest pains, palpitations, was recently admitted to [facility] because of vomiting and found later to have a non bleeding gastric ulcer on endoscopy. PAST MEDICAL HISTORY: Remarkable for chronic atrial fibrillation, intestinal obstruction, chronic obstructive pulmonary disease, hypothyroidism. FAMILY HISTORY: Noncontributory. SOCIAL HISTORY: She does not smoke or drink. REVIEW OF SYSTEMS: Essentially remarkable for occasional shortness of breath. PHYSICAL EXAMINATION: GENERAL: The patient is alert, oriented, appears but more comfortable this morning. VITAL SIGNS: Blood pressure of 128/61, pulse of 98 irregular, respiratory rate 20, O2 sat 94% on nasal cannula oxygen. The patient appears emaciated. HEENT: Pupils are equal and reactive to light and accommodation. JVP flat. LUNGS: Shows fair aeration bilateral with bilateral scattered rales. HEART: Irregular rhythm due to atrial fibrillation. ABDOMEN: Soft and nontender. No organomegaly. EXTREMITIES: Shows no edema or cyanosis. CENTRAL NERVOUS SYSTEM: Exam is grossly intact. LABORATORY DATA: The patient has a chest x-ray that shows cardiomegaly with fibrotic changes, right greater than left. Right chest tube in place and unchanged from previous chest x-rays. EKG is remarkable for atrial fibrillation with occasional premature ventricular complexes RSR or QRS pattern in V1 suggesting right ventricular conduction delay, ST-T abnormalities, consider inferior ischemia. WBC 8.8, hemoglobin 10.8, platelet count of 340,000. Sodium 139, potassium 4.2, BUN 17, creatinine 0.7, serum glucose 121, proBNP 4400. IMPRESSION: This elderly female with atrial fibrillation, cough, pulmonary congestion, is compatible with mild congestive heart failure, especially in view of elevated proBNP. One however, has to rule out mild superimposed pneumonia due to aspiration. PLAN: Continue therapy as ordered. Cardiology evaluation will be in order, IV antibiotics, aerosolized bronchodilators. We will continue to follow with you. Yomi Mir MD
--- NOTE | 2017-06-16 13:46 | CP.PCM.PN ---
Subjective - Date & Time of Evaluation Date of Evaluation: 06/16/17 Time of Evaluation: 13:46 - Subjective Subjective: Patient seen in room in good spirits breathing today is stable denies pain continues with 2 L NC O2 continue PT/OT Objective - Vital Signs/Intake and Output Vital Signs (last 24 hours): Temp Pulse Resp BP Pulse Ox 97.0 F L 110 H 20 127/57 L 94 L 06/16/17 08:11 06/16/17 09:57 06/16/17 08:11 06/16/17 09:57 06/16/17 08:11 - Medications Medications: Current Medications Acetaminophen (Tylenol 325mg Tab) 650 mg PO Q6 PRN PRN Reason: Pain, moderate (4-7) Last Admin: 06/13/17 16:51 Dose: 650 mg Albuterol Sulfate (Albuterol 0.083% Inhal Pippa (2.5 Mg/3 Ml) Ud) 2.5 mg INH RQ6 PRN PRN Reason: Shortness of Breath Last Admin: 06/16/17 05:19 Dose: 2.5 mg Alprazolam (Xanax) 0.25 mg PO Q12 PRN PRN Reason: Anxiety Stop: 06/21/17 11:07 Last Admin: 06/14/17 11:56 Dose: 0.25 mg Amoxicillin (Amoxil 500 Mg Cap) 500 mg PO Q8 [facility]IC PRN Reason: Protocol Last Admin: 06/16/17 12:16 Dose: 500 mg Apixaban (Eliquis) 2.5 mg PO BID NIC PRN Reason: Protocol Last Admin: 06/16/17 08:43 Dose: 2.5 mg Clonazepam (Klonopin) 0.5 mg PO DAILY@2200 [facility] Last Admin: 06/15/17 22:14 Dose: 0.5 mg Diltiazem HCl (Cardizem) 60 mg PO Q6 [facility] Last Admin: 06/16/17 09:57 Dose: 60 mg Docusate Sodium (Colace) 100 mg PO BID [facility] Last Admin: 06/16/17 08:42 Dose: 100 mg Furosemide (Lasix) 20 mg PO BID [facility] Last Admin: 06/16/17 08:43 Dose: 20 mg Levothyroxine Sodium (Synthroid) 88 mcg PO DAILY@0630 [facility] Last Admin: 06/16/17 06:30 Dose: 88 mcg Magnesium Oxide (Mag-Ox) 400 mg PO BID [facility] Last Admin: 06/16/17 08:44 Dose: 400 mg Metoprolol Tartrate (Lopressor) 25 mg PO Q12 [facility] Last Admin: 06/16/17 08:44 Dose: 25 mg Midodrine (Proamatine) 10 mg PO TID [facility] Last Admin: 06/16/17 12:16 Dose: 10 mg Multivitamins/Minerals (Therapeutic-M Tab) 1 tab PO DAILY [facility] Last Admin: 06/16/17 08:44 Dose: 1 tab Pantoprazole Sodium (Protonix Ec Tab) 40 mg PO DAILY [facility] Last Admin: 06/16/17 08:44 Dose: 40 mg Pravastatin Sodium (Pravachol) 20 mg PO HS [facility] Last Admin: 06/15/17 22:14 Dose: 20 mg Trazodone HCl (Desyrel) 50 mg PO HS [facility] Last Admin: 06/15/17 22:14 Dose: 50 mg - Labs Labs: 06/15/17 11:25 06/15/17 11:01
[2017-06-16] MEDS: Pravastatin Sodium 20 MG TAB PO SCH (21:30)
[2017-06-17] MEDS: Levothyroxine 88 MCG TAB PO SCH (06:16)
[2017-06-17] MEDS: Albuterol 0.083% Inhal Sol (2.5 mg/3 mL) UD INH PRN ×2 (07:33→16:16)
[2017-06-17] MEDS: Pantoprazole 40 mg EC Tab PO SCH (09:08)
[2017-06-17] MEDS: Magnesium Oxide 400 mg Tab UD PO SCH ×2 (09:08→16:17)
[2017-06-17] MEDS: Multivitamin With Minerals Tab PO SCH (09:09)
--- NOTE | 2017-06-17 10:39 | CP.PCM.PN ---
Subjective - Date & Time of Evaluation Date of Evaluation: 06/17/17 Time of Evaluation: 10:38 - Subjective Subjective: feels better no chest pains/sob cardiac eval noted will continue present rx repeat cxr in am Objective - Vital Signs/Intake and Output Vital Signs (last 24 hours): Temp Pulse Resp BP Pulse Ox 97.5 F L 107 H 18 124/68 97 06/17/17 08:18 06/17/17 09:08 06/17/17 08:18 06/17/17 09:08 06/17/17 08:18 - Medications Medications: Current Medications Acetaminophen (Tylenol 325mg Tab) 650 mg PO Q6 PRN PRN Reason: Pain, moderate (4-7) Last Admin: 06/13/17 16:51 Dose: 650 mg Albuterol Sulfate (Albuterol 0.083% Inhal Pippa (2.5 Mg/3 Ml) Ud) 2.5 mg INH RQ6 PRN PRN Reason: Shortness of Breath Last Admin: 06/17/17 07:33 Dose: 2.5 mg Alprazolam (Xanax) 0.25 mg PO Q12 PRN PRN Reason: Anxiety Stop: 06/21/17 11:07 Last Admin: 06/14/17 11:56 Dose: 0.25 mg Amoxicillin (Amoxil 500 Mg Cap) 500 mg PO Q8 [facility] PRN Reason: Protocol Last Admin: 06/17/17 09:07 Dose: 500 mg Apixaban (Eliquis) 2.5 mg PO BID [facility] PRN Reason: Protocol Last Admin: 06/17/17 09:07 Dose: 2.5 mg Clonazepam (Klonopin) 0.5 mg PO DAILY@2200 [facility] Last Admin: 06/16/17 21:30 Dose: 0.5 mg Diltiazem HCl (Cardizem) 60 mg PO Q6 [facility] Last Admin: 06/17/17 03:21 Dose: 60 mg Docusate Sodium (Colace) 100 mg PO BID [facility] Last Admin: 06/17/17 09:07 Dose: 100 mg Furosemide (Lasix) 20 mg PO BID [facility] Last Admin: 06/17/17 09:08 Dose: 20 mg Levothyroxine Sodium (Synthroid) 88 mcg PO DAILY@0630 [facility] Last Admin: 06/17/17 06:16 Dose: 88 mcg Magnesium Oxide (Mag-Ox) 400 mg PO BID [facility] Last Admin: 06/17/17 09:08 Dose: 400 mg Metoprolol Tartrate (Lopressor) 25 mg PO Q12 [facility] Last Admin: 06/17/17 09:08 Dose: 25 mg Midodrine (Proamatine) 10 mg PO TID [facility] Last Admin: 06/17/17 09:08 Dose: 10 mg Multivitamins/Minerals (Therapeutic-M Tab) 1 tab PO DAILY [facility] Last Admin: 06/17/17 09:09 Dose: 1 tab Pantoprazole Sodium (Protonix Ec Tab) 40 mg PO DAILY [facility] Last Admin: 06/17/17 09:08 Dose: 40 mg Pravastatin Sodium (Pravachol) 20 mg PO HS [facility] Last Admin: 06/16/17 21:30 Dose: 20 mg Trazodone HCl (Desyrel) 50 mg PO HS [facility] Last Admin: 06/16/17 21:31 Dose: 50 mg - Labs Labs: 06/15/17 11:25 06/15/17 11:01
[2017-06-17] MEDS: Pravastatin Sodium 20 MG TAB PO SCH (21:54)
[2017-06-18] MEDS: Albuterol 0.083% Inhal Sol (2.5 mg/3 mL) UD INH PRN ×2 (06:56→19:43)
--- NOTE | 2017-06-18 08:54 | CP.PCM.PN ---
Subjective - Date & Time of Evaluation Date of Evaluation: 06/18/17 Time of Evaluation: 08:54 - Subjective Subjective: no chest pain/cough/sob Objective - Vital Signs/Intake and Output Vital Signs (last 24 hours): Temp Pulse Resp BP Pulse Ox 97.9 F 86 20 116/67 90 L 06/18/17 08:02 06/18/17 08:02 06/18/17 08:02 06/18/17 08:02 06/18/17 08:02 - Medications Medications: Current Medications Acetaminophen (Tylenol 325mg Tab) 650 mg PO Q6 PRN PRN Reason: Pain, moderate (4-7) Last Admin: 06/13/17 16:51 Dose: 650 mg Albuterol Sulfate (Albuterol 0.083% Inhal Pippa (2.5 Mg/3 Ml) Ud) 2.5 mg INH RQ6 PRN PRN Reason: Shortness of Breath Last Admin: 06/18/17 06:56 Dose: 2.5 mg Alprazolam (Xanax) 0.25 mg PO Q12 PRN PRN Reason: Anxiety Stop: 06/21/17 11:07 Last Admin: 06/14/17 11:56 Dose: 0.25 mg Amoxicillin (Amoxil 500 Mg Cap) 500 mg PO Q8 [facility] PRN Reason: Protocol Last Admin: 06/18/17 02:42 Dose: 500 mg Apixaban (Eliquis) 2.5 mg PO BID [facility] PRN Reason: Protocol Last Admin: 06/17/17 16:17 Dose: 2.5 mg Clonazepam (Klonopin) 0.5 mg PO DAILY@2200 [facility] Last Admin: 06/17/17 21:54 Dose: 0.5 mg Diltiazem HCl (Cardizem) 60 mg PO Q6 [facility] Last Admin: 06/18/17 03:32 Dose: 60 mg Docusate Sodium (Colace) 100 mg PO BID [facility] Last Admin: 06/17/17 16:17 Dose: 100 mg Furosemide (Lasix) 20 mg PO BID [facility] Last Admin: 06/17/17 16:17 Dose: 20 mg Levothyroxine Sodium (Synthroid) 88 mcg PO DAILY@0630 [facility] Last Admin: 06/17/17 06:16 Dose: 88 mcg Magnesium Oxide (Mag-Ox) 400 mg PO BID [facility] Last Admin: 06/17/17 16:17 Dose: 400 mg Metoprolol Tartrate (Lopressor) 25 mg PO Q12 [facility] Last Admin: 06/17/17 21:54 Dose: 25 mg Midodrine (Proamatine) 10 mg PO TID [facility] Last Admin: 06/17/17 16:17 Dose: 10 mg Multivitamins/Minerals (Therapeutic-M Tab) 1 tab PO DAILY [facility] Last Admin: 06/17/17 09:09 Dose: 1 tab Pantoprazole Sodium (Protonix Ec Tab) 40 mg PO DAILY [facility] Last Admin: 06/17/17 09:08 Dose: 40 mg Pravastatin Sodium (Pravachol) 20 mg PO HS [facility] Last Admin: 06/17/17 21:54 Dose: 20 mg Trazodone HCl (Desyrel) 50 mg PO HS [facility] Last Admin: 06/17/17 21:54 Dose: 50 mg - Labs Labs: 06/15/17 11:25 06/15/17 11:01 - Constitutional Appears: No Acute Distress - Head Exam Head Exam: ATRAUMATIC, NORMAL INSPECTION, NORMOCEPHALIC - Eye Exam Eye Exam: EOMI, Normal appearance, PERRL Pupil Exam: NORMAL ACCOMODATION, PERRL - ENT Exam ENT Exam: Mucous Membranes Moist, Normal Exam - Neck Exam Neck Exam: Full ROM, Normal Inspection. absent: Lymphadenopathy - Respiratory Exam Respiratory Exam: Decreased Breath Sounds, Prolonged Expiratory Phase, NORMAL BREATHING PATTERN - Cardiovascular Exam Cardiovascular Exam: REGULAR RHYTHM, +S1, +S2. absent: Murmur - GI/Abdominal Exam GI & Abdominal Exam: Soft, Normal Bowel Sounds. absent: Tenderness - Rectal Exam Rectal Exam: NORMAL INSPECTION - Extremities Exam Extremities Exam: Full ROM, Normal Capillary Refill, Normal Inspection. absent : Joint Swelling, Pedal Edema - Back Exam Back Exam: NORMAL INSPECTION - Neurological Exam Neurological Exam: Alert, Awake, CN II-XII Intact, Normal Gait, Oriented x3 - Psychiatric Exam Psychiatric exam: Normal Affect, Normal Mood - Skin Skin Exam: Dry, Intact, Normal Color, Warm Assessment and Plan - Assessment and Plan (Free Text) Assessment: mild chf pneumonia arrythmias Plan: for cxr today continue present rx
[2017-06-18] MEDS: Magnesium Oxide 400 mg Tab UD PO SCH ×2 (09:29→17:14)
[2017-06-18] MEDS: Pantoprazole 40 mg EC Tab PO SCH (09:30)
[2017-06-18] MEDS: Levothyroxine 88 MCG TAB PO SCH (09:30)
[2017-06-18] MEDS: Multivitamin With Minerals Tab PO SCH (09:31)
--- NOTE | 2017-06-18 10:55 | CP.PCM.PN ---
Subjective - Date & Time of Evaluation Date of Evaluation: 06/18/17 Time of Evaluation: 13:44 - Subjective Subjective: pt doing well today tolerating PT, feels she is gradually getting stronger denies palpitations, cp sob HD stable no other complaints Objective - Vital Signs/Intake and Output Vital Signs (last 24 hours): Temp Pulse Resp BP Pulse Ox 97.9 F 86 20 116/67 90 L 06/18/17 08:02 06/18/17 09:28 06/18/17 08:02 06/18/17 09:28 06/18/17 08:02 Constitutional- cooperative, awake, alert. Head- NCAT, PERRL Eye- PERRL, normal accommodation ENT- normal exam, MMM. Neck- normal inspection, supple, no JVD Respiratory- CTAB, no wheezes rales rhonchi Cardiovascular- RRR, +S1, +S2 no MRG GI/Abdominal- normal bowel sounds, soft Skin- warm, dry Extremities Exam- normal capillary refill, normal inspection Neurological Exam- alert, oriented Psych- normal mood, normal affect - Medications Medications: Current Medications Acetaminophen (Tylenol 325mg Tab) 650 mg PO Q6 PRN PRN Reason: Pain, moderate (4-7) Last Admin: 06/13/17 16:51 Dose: 650 mg Albuterol Sulfate (Albuterol 0.083% Inhal Pippa (2.5 Mg/3 Ml) Ud) 2.5 mg INH RQ6 PRN PRN Reason: Shortness of Breath Last Admin: 06/18/17 06:56 Dose: 2.5 mg Alprazolam (Xanax) 0.25 mg PO Q12 PRN PRN Reason: Anxiety Stop: 06/21/17 11:07 Last Admin: 06/14/17 11:56 Dose: 0.25 mg Amoxicillin (Amoxil 500 Mg Cap) 500 mg PO Q8 [facility] PRN Reason: Protocol Last Admin: 06/18/17 09:26 Dose: 500 mg Apixaban (Eliquis) 2.5 mg PO BID [facility] PRN Reason: Protocol Last Admin: 06/18/17 09:27 Dose: 2.5 mg Clonazepam (Klonopin) 0.5 mg PO DAILY@2200 [facility] Last Admin: 06/17/17 21:54 Dose: 0.5 mg Diltiazem HCl (Cardizem) 60 mg PO Q6 [facility] Last Admin: 06/18/17 09:28 Dose: 60 mg Docusate Sodium (Colace) 100 mg PO BID [facility] Last Admin: 06/18/17 09:27 Dose: 100 mg Furosemide (Lasix) 20 mg PO BID [facility] Last Admin: 06/18/17 09:26 Dose: 20 mg Levothyroxine Sodium (Synthroid) 88 mcg PO DAILY@0630 [facility] Last Admin: 06/18/17 09:30 Dose: 88 mcg Magnesium Oxide (Mag-Ox) 400 mg PO BID [facility] Last Admin: 06/18/17 09:29 Dose: 400 mg Metoprolol Tartrate (Lopressor) 25 mg PO Q12 [facility] Last Admin: 06/18/17 09:27 Dose: 25 mg Midodrine (Proamatine) 10 mg PO TID [facility] Last Admin: 06/18/17 09:29 Dose: 10 mg Multivitamins/Minerals (Therapeutic-M Tab) 1 tab PO DAILY [facility] Last Admin: 06/18/17 09:31 Dose: 1 tab Pantoprazole Sodium (Protonix Ec Tab) 40 mg PO DAILY [facility] Last Admin: 06/18/17 09:30 Dose: 40 mg Pravastatin Sodium (Pravachol) [address] [facility] Last Admin: 06/17/17 21:54 Dose: 20 mg Trazodone HCl (Desyrel) 50 mg PO HS [facility] Last Admin: 06/17/17 21:54 Dose: 50 mg - Labs Labs: 06/15/17 11:25 06/15/17 11:01 Assessment and Plan - Assessment and Plan (Free Text) Plan: 82 yo female with history of Chronic AFib, COPD and Hypothyroidism was initially admitted at [facility] (formerly [facility]) because of nausea and vomiting found later to have non-bleeding gastric ulcer on endoscopy. She was managed with Protonix and did well. She was brought to TCU for therapy because of deconditioning. 1. CHF CXray showed increased bronchovascular markings compared to xrays in Dec, 2016 ProBNP: 4400 Troponins: not elevated will add Lasix 20mg PO BID cardiology consult with Dr Ewing 2. COPD Duoneb q 4hrs prn for wheezing or SOB had relief with SOB earlier after getting Duoneb pulmonology consult with Dr Mir 3. Chronic AFib irregular, on and off tachycardia continue Cardizem and Metoprolol on Eliquis 2.5mg PO BID 4. Gastric Ulcer continue Protonix 5. Orthostatic Hypotension on Midodrine 10mg PO TID 6. Hypothyroid continue Levothyroxine 88mcg PO daily
--- NOTE | 2017-06-18 14:43 | RAD ---
PROCEDURE: CHEST RADIOGRAPH, 1 VIEW Technique: Single view portable erect @ 10:15. HISTORY: Follow-up CHF COMPARISON: 01/27/2017 06/15/2017. FINDINGS: LUNGS: Stable changes likely scarring right lower lobe. PLEURA: No pneumothorax or pleural fluid seen. CARDIOVASCULAR: Cardiomegaly. No evidence of acute, significant cardiovascular disease. Position/ configuration of pacemaker Satisfactory. OSSEOUS STRUCTURES: No significant abnormalities. VISUALIZED UPPER ABDOMEN: Normal. OTHER FINDINGS: None. IMPRESSION: No significant interval change compared to the prior examination(s).
[2017-06-18] MEDS: Pravastatin Sodium 20 MG TAB PO SCH (21:36)
[2017-06-19] MEDS: Levothyroxine 88 MCG TAB PO SCH (06:17)
[2017-06-19] MEDS: Magnesium Oxide 400 mg Tab UD PO SCH ×2 (08:50→16:56)
[2017-06-19] MEDS: Pantoprazole 40 mg EC Tab PO SCH (08:50)
[2017-06-19] MEDS: Multivitamin With Minerals Tab PO SCH (08:50)
--- NOTE | 2017-06-19 11:13 | CP.PCM.PN ---
Subjective - Date & Time of Evaluation Date of Evaluation: 06/19/17 Time of Evaluation: 10:00 - Subjective Subjective: Pt appears well no SOB at rest still with mild DU when exercising Still has crep rales @ Right base also pt is at times tachycardic will d/c cardizem and increase metoprolol to 50mg BID Objective - Vital Signs/Intake and Output Vital Signs (last 24 hours): Temp Pulse Resp BP Pulse Ox 97.3 F L 71 20 116/54 L 94 L 06/19/17 08:17 06/19/17 08:49 06/19/17 08:17 06/19/17 08:49 06/19/17 08:17 - Medications Medications: Current Medications Acetaminophen (Tylenol 325mg Tab) 650 mg PO Q6 PRN PRN Reason: Pain, moderate (4-7) Last Admin: 06/13/17 16:51 Dose: 650 mg Albuterol Sulfate (Albuterol 0.083% Inhal Pippa (2.5 Mg/3 Ml) Ud) 2.5 mg INH RQ6 PRN PRN Reason: Shortness of Breath Last Admin: 06/18/17 19:43 Dose: 2.5 mg Alprazolam (Xanax) 0.25 mg PO Q12 PRN PRN Reason: Anxiety Stop: 06/21/17 11:07 Last Admin: 06/14/17 11:56 Dose: 0.25 mg Amoxicillin (Amoxil 500 Mg Cap) 500 mg PO Q8 [facility] PRN Reason: Protocol Last Admin: 06/19/17 08:49 Dose: 500 mg Apixaban (Eliquis) 2.5 mg PO BID [facility] PRN Reason: Protocol Last Admin: 06/19/17 08:49 Dose: 2.5 mg Clonazepam (Klonopin) 0.5 mg PO DAILY@2200 [facility] Last Admin: 06/18/17 21:37 Dose: 0.5 mg Docusate Sodium (Colace) 100 mg PO BID [facility] Last Admin: 06/19/17 08:49 Dose: 100 mg Furosemide (Lasix) 40 mg PO DAILY [facility] Levothyroxine Sodium (Synthroid) 88 mcg PO DAILY@0630 [facility] Last Admin: 06/19/17 06:17 Dose: 88 mcg Magnesium Oxide (Mag-Ox) 400 mg PO BID [facility] Last Admin: 06/19/17 08:50 Dose: 400 mg Metoprolol Tartrate (Lopressor) 50 mg PO Q12 [facility] Midodrine (Proamatine) 10 mg PO TID [facility] Last Admin: 06/19/17 08:48 Dose: 10 mg Multivitamins/Minerals (Therapeutic-M Tab) 1 tab PO DAILY [facility] Last Admin: 06/19/17 08:50 Dose: 1 tab Pantoprazole Sodium (Protonix Ec Tab) 40 mg PO DAILY [facility] Last Admin: 06/19/17 08:50 Dose: 40 mg Pravastatin Sodium (Pravachol) 20 mg PO HS [facility] Last Admin: 06/18/17 21:36 Dose: 20 mg Trazodone HCl (Desyrel) 50 mg PO HS [facility] Last Admin: 06/18/17 21:38 Dose: 50 mg - Labs Labs: 06/15/17 11:25 06/15/17 11:01 Assessment and Plan (1) Acute on chronic left systolic heart failure Status: Acute (2) Atrial fibrillation with controlled ventricular rate Status: Acute (3) History of permanent cardiac pacemaker placement Status: Acute
[2017-06-19] MEDS: Albuterol 0.083% Inhal Sol (2.5 mg/3 mL) UD INH PRN (14:08)
--- NOTE | 2017-06-19 14:28 | CP.PCM.PN ---
Subjective - Date & Time of Evaluation Date of Evaluation: 06/19/17 Time of Evaluation: 14:29 - Subjective Subjective: no chest pains/sob Objective - Vital Signs/Intake and Output Vital Signs (last 24 hours): Temp Pulse Resp BP Pulse Ox 97.3 F L 71 20 116/54 L 94 L 06/19/17 08:17 06/19/17 08:49 06/19/17 08:17 06/19/17 08:49 06/19/17 08:17 - Medications Medications: Current Medications Acetaminophen (Tylenol 325mg Tab) 650 mg PO Q6 PRN PRN Reason: Pain, moderate (4-7) Last Admin: 06/13/17 16:51 Dose: 650 mg Albuterol Sulfate (Albuterol 0.083% Inhal Pippa (2.5 Mg/3 Ml) Ud) 2.5 mg INH RQ6 PRN PRN Reason: Shortness of Breath Last Admin: 06/19/17 14:08 Dose: 2.5 mg Alprazolam (Xanax) 0.25 mg PO Q12 PRN PRN Reason: Anxiety Stop: 06/21/17 11:07 Last Admin: 06/14/17 11:56 Dose: 0.25 mg Amoxicillin (Amoxil 500 Mg Cap) 500 mg PO Q8 [facility] PRN Reason: Protocol Last Admin: 06/19/17 08:49 Dose: 500 mg Apixaban (Eliquis) 2.5 mg PO BID [facility] PRN Reason: Protocol Last Admin: 06/19/17 08:49 Dose: 2.5 mg Clonazepam (Klonopin) 0.5 mg PO DAILY@2200 [facility] Last Admin: 06/18/17 21:37 Dose: 0.5 mg Docusate Sodium (Colace) 100 mg PO BID [facility] Last Admin: 06/19/17 08:49 Dose: 100 mg Furosemide (Lasix) 40 mg PO DAILY [facility] Levothyroxine Sodium (Synthroid) 88 mcg PO DAILY@0630 [facility] Last Admin: 06/19/17 06:17 Dose: 88 mcg Magnesium Oxide (Mag-Ox) 400 mg PO BID [facility] Last Admin: 06/19/17 08:50 Dose: 400 mg Metoprolol Tartrate (Lopressor) 50 mg PO Q12 [facility] Midodrine (Proamatine) 10 mg PO TID [facility] Last Admin: 06/19/17 12:30 Dose: 10 mg Multivitamins/Minerals (Therapeutic-M Tab) 1 tab PO DAILY [facility] Last Admin: 06/19/17 08:50 Dose: 1 tab Pantoprazole Sodium (Protonix Ec Tab) 40 mg PO DAILY [facility] Last Admin: 06/19/17 08:50 Dose: 40 mg Pravastatin Sodium (Pravachol) 20 mg PO HS [facility] Last Admin: 06/18/17 21:36 Dose: 20 mg Trazodone HCl (Desyrel) 50 mg PO HS [facility] Last Admin: 06/18/17 21:38 Dose: 50 mg - Labs Labs: 06/15/17 11:25 06/15/17 11:01 - Constitutional Appears: No Acute Distress - Head Exam Head Exam: ATRAUMATIC, NORMAL INSPECTION, NORMOCEPHALIC - Eye Exam Eye Exam: EOMI, Normal appearance, PERRL Pupil Exam: NORMAL ACCOMODATION, PERRL - ENT Exam ENT Exam: Mucous Membranes Moist, Normal Exam - Neck Exam Neck Exam: Full ROM, Normal Inspection. absent: Lymphadenopathy - Respiratory Exam Respiratory Exam: Prolonged Expiratory Phase, Rales, NORMAL BREATHING PATTERN - Cardiovascular Exam Cardiovascular Exam: Irregular Rhythm, +S1, +S2. absent: Murmur - GI/Abdominal Exam GI & Abdominal Exam: Soft, Normal Bowel Sounds. absent: Tenderness - Rectal Exam Rectal Exam: NORMAL INSPECTION - Extremities Exam Extremities Exam: Full ROM, Normal Capillary Refill, Normal Inspection. absent : Joint Swelling, Pedal Edema - Back Exam Back Exam: NORMAL INSPECTION - Neurological Exam Neurological Exam: Alert, Awake, CN II-XII Intact, Normal Gait, Oriented x3 - Psychiatric Exam Psychiatric exam: Normal Affect, Normal Mood - Skin Skin Exam: Dry, Intact, Normal Color, Warm Assessment and Plan - Assessment and Plan (Free Text) Assessment: chf--appears to have improved no evidence of pneumonia on cxr atrial fib--chronic Plan: no further pulmonary intervention for now will sign off case and see again at your request
[2017-06-19] MEDS: Pravastatin Sodium 20 MG TAB PO SCH (21:02)
[2017-06-20] MEDS: Albuterol 0.083% Inhal Sol (2.5 mg/3 mL) UD INH PRN ×2 (06:37→16:54)
[2017-06-20] MEDS: Levothyroxine 88 MCG TAB PO SCH (06:48)
[2017-06-20] MEDS: Magnesium Oxide 400 mg Tab UD PO SCH ×2 (09:15→17:00)
[2017-06-20] MEDS: Pantoprazole 40 mg EC Tab PO SCH (09:16)
[2017-06-20] MEDS: Multivitamin With Minerals Tab PO SCH (09:16)
[2017-06-20] MEDS: Alum-Mag Hydrox-Simethicone Susp (30 mL) PO PRN (18:52)
[2017-06-20] MEDS: Pravastatin Sodium 20 MG TAB PO SCH (21:34)
[2017-06-21] MEDS: Levothyroxine 88 MCG TAB PO SCH (05:30)
[2017-06-21] MEDS: Alum-Mag Hydrox-Simethicone Susp (30 mL) PO PRN (05:30)
[2017-06-21] MEDS: Magnesium Oxide 400 mg Tab UD PO SCH ×2 (08:44→16:58)
[2017-06-21] MEDS: Pantoprazole 40 mg EC Tab PO SCH (08:45)
[2017-06-21] MEDS: Multivitamin With Minerals Tab PO SCH (08:45)
[2017-06-21] MEDS: Albuterol 0.083% Inhal Sol (2.5 mg/3 mL) UD INH PRN ×2 (09:55→18:47)
[2017-06-21] MEDS: Pravastatin Sodium 20 MG TAB PO SCH (21:35)
[2017-06-22] MEDS: Levothyroxine 88 MCG TAB PO SCH (06:28)
[2017-06-22] MEDS: Pantoprazole 40 mg EC Tab PO SCH (08:15)
[2017-06-22] MEDS: Multivitamin With Minerals Tab PO SCH (08:15)
[2017-06-22] MEDS: Magnesium Oxide 400 mg Tab UD PO SCH ×2 (08:15→17:05)
[2017-06-22] MEDS ORDERED: Albuterol 0.083% Inhal Sol (2.5 mg/3 mL) UD INH PRN (15:55)
[2017-06-22] MEDS: Pravastatin Sodium 20 MG TAB PO SCH (21:47)
[2017-06-23] MEDS: Albuterol-Ipratrop 3 mg / 0.5 (3 ml) UD INH PRN (05:20)
[2017-06-23] MEDS: Levothyroxine 88 MCG TAB PO SCH (06:23)
[2017-06-23] MEDS ORDERED: Levothyroxine 88 MCG TAB ONE (06:30)
[2017-06-23] MEDS: Multivitamin With Minerals Tab PO SCH (08:39)
[2017-06-23] MEDS: Pantoprazole 40 mg EC Tab PO SCH (08:40)
[2017-06-23] MEDS: Magnesium Oxide 400 mg Tab UD PO SCH ×2 (08:41→16:50)
--- NOTE | 2017-06-23 12:08 | CP.PCM.PN ---
Subjective - Date & Time of Evaluation Date of Evaluation: 06/23/17 Time of Evaluation: 11:00 - Subjective Subjective: Mrs. Ramirez was seen and examined at bedside. She states that she is doing well today. Yesterday morning, and again today, it was noted that her blood pressure had dropped to systolic of 90's. Yesterday she was lightheaded in the morning; however today she denies being dizzy. Her blood pressure has now improved to 113/72. She has no complaints otherwise and she is in good spirits. She is tolerating physical therapy well. Denies cp, sob, palpitations, weakness. Objective - Vital Signs/Intake and Output Vital Signs (last 24 hours): Temp Pulse Resp BP Pulse Ox 96.4 F L 62 20 113/72 98 06/23/17 08:46 06/23/17 08:46 06/23/17 08:46 06/23/17 08:46 06/23/17 08:46 - Medications Medications: Current Medications Acetaminophen (Tylenol 325mg Tab) 650 mg PO Q6 PRN PRN Reason: Pain, moderate (4-7) Last Admin: 06/13/17 16:51 Dose: 650 mg Al Hydrox/Mg Hydrox/Simethicone (Maalox Plus 30 Ml) 30 ml PO Q6 PRN PRN Reason: Indigestion / Heartburn Last Admin: 06/21/17 05:30 Dose: 30 ml Albuterol Sulfate (Albuterol 0.083% Inhal Pippa (2.5 Mg/3 Ml) Ud) 2.5 mg INH RQ6 PRN PRN Reason: Shortness of Breath Last Admin: 06/22/17 16:18 Dose: 2.5 mg Albuterol/Ipratropium (Duoneb 3 Mg/0.5 Mg (3 Ml) Ud) 3 ml INH RQ4 PRN PRN Reason: Shortness of Breath Last Admin: 06/23/17 05:20 Dose: 3 ml Alprazolam (Xanax) 0.25 mg PO Q12 PRN PRN Reason: Anxiety Stop: 06/29/17 09:39 Last Admin: 06/23/17 08:39 Dose: 0.25 mg Apixaban (Eliquis) 2.5 mg PO BID [facility] PRN Reason: Protocol Last Admin: 06/23/17 08:42 Dose: 2.5 mg Clonazepam (Klonopin) 0.5 mg PO DAILY@2200 [facility] Last Admin: 06/22/17 21:46 Dose: 0.5 mg Docusate Sodium (Colace) 100 mg PO BID [facility] Last Admin: 06/23/17 08:41 Dose: 100 mg Furosemide (Lasix) 40 mg PO DAILY [facility] Last Admin: 06/23/17 08:42 Dose: 40 mg Levothyroxine Sodium (Synthroid) 88 mcg PO DAILY@0630 [facility] Last Admin: 06/23/17 06:23 Dose: 88 mcg Magnesium Oxide (Mag-Ox) 400 mg PO BID [facility] Last Admin: 06/23/17 08:41 Dose: 400 mg Metoprolol Tartrate (Lopressor) 25 mg PO Q12 [facility] Midodrine (Proamatine) 10 mg PO TID [facility] Last Admin: 06/23/17 08:41 Dose: 10 mg Multivitamins/Minerals (Therapeutic-M Tab) 1 tab PO DAILY [facility] Last Admin: 06/23/17 08:39 Dose: 1 tab Pantoprazole Sodium (Protonix Ec Tab) 40 mg PO DAILY [facility] Last Admin: 06/23/17 08:40 Dose: 40 mg Pravastatin Sodium (Pravachol) 20 mg PO HS [facility] Last Admin: 06/22/17 21:47 Dose: 20 mg Trazodone HCl (Desyrel) 50 mg PO [facility] Last Admin: 06/22/17 21:46 Dose: 50 mg - Labs Labs: 06/15/17 11:25 06/15/17 11:01 - Additional Findings Additional findings: Physical exam: Constitutional- cooperative, awake, alert. Head- NCAT, PERRL Eye- PERRL, normal accommodation ENT- normal exam, MMM. Neck- normal inspection, supple, no JVD Respiratory- CTAB, no wheezes rales rhonchi Cardiovascular- RRR, +S1, +S2 no MRG GI/Abdominal- normal bowel sounds, soft Skin- warm, dry Extremities Exam- normal capillary refill, normal inspection Neurological Exam- alert, stable gait Psych- normal mood, normal affect Assessment and Plan - Assessment and Plan (Free Text) Plan: 82 yo female with history of Chronic AFib, COPD and Hypothyroidism was initially admitted at [facility] because of nausea and vomiting found later to have non-bleeding gastric ulcer on endoscopy. She was managed with Protonix and did well. She was brought to TCU for therapy because of deconditioning. 1. CHF CXray showed increased bronchovascular markings compared to xrays in Dec, 2016 ProBNP: 4400 Troponins: not elevated Lasix changed to 40 mg po daily cardiology consult with Dr Kaylin oliveira 2. COPD Duoneb q 4hrs prn for wheezing or SOB had relief with SOB earlier after getting Duoneb pulmonology consult with Dr Mir 3. Chronic AFib irregular, on and off tachycardia continue Metoprolol- switched back to 25 mg po BID due to hypotension- will see if heart rate continues to remain controlled. on Eliquis 2.5mg PO BID 4. Gastric Ulcer continue Protonix
[2017-06-23] MEDS ORDERED: Sodium Chloride 0.9% 500 ML IV ONE (12:17)
--- NOTE | 2017-06-23 16:19 | RAD ---
PROCEDURE: CHEST RADIOGRAPH, 1 VIEW HISTORY: for yariel, rule out TB COMPARISON: 06/18/2017 FINDINGS: LUNGS: Chronic opacity at right lung base. No new opacity elsewhere. No acute infiltrate. PLEURA: No pneumothorax or pleural fluid seen. CARDIOVASCULAR: Normal heart size. Permanent pacemaker. Mitral annular calcification. OSSEOUS STRUCTURES: No significant abnormalities. VISUALIZED UPPER ABDOMEN: Normal. OTHER FINDINGS: None. IMPRESSION: Chronic opacity at right base, likely scarring. No acute infiltrate.
[2017-06-23] MEDS: Pravastatin Sodium 20 MG TAB PO SCH (21:16)
[2017-06-24] MEDS: Levothyroxine 88 MCG TAB PO SCH (05:29)
[2017-06-24] MEDS: Magnesium Oxide 400 mg Tab UD PO SCH ×2 (08:56→17:22)
[2017-06-24] MEDS: Pantoprazole 40 mg EC Tab PO SCH (08:57)
[2017-06-24] MEDS: Multivitamin With Minerals Tab PO SCH (08:57)
[2017-06-24] MEDS: Albuterol-Ipratrop 3 mg / 0.5 (3 ml) UD INH PRN ×2 (10:48→17:30)
[2017-06-24] MEDS: Pravastatin Sodium 20 MG TAB PO SCH (21:18)
[2017-06-25] MEDS: Levothyroxine 88 MCG TAB PO SCH (05:36)
[2017-06-25 08:09] VITALS: RESP 18; TEMP 97.8
[2017-06-25] MEDS: Pantoprazole 40 mg EC Tab PO SCH (08:34)
[2017-06-25] MEDS: Magnesium Oxide 400 mg Tab UD PO SCH (08:34)
[2017-06-25] MEDS: Multivitamin With Minerals Tab PO SCH (08:36)
[2017-06-25] MEDS ORDERED: Megestrol Acetate 40 mg/ml Cup PO SCH (09:00)
[2017-06-25] MEDS: Albuterol-Ipratrop 3 mg / 0.5 (3 ml) UD INH PRN (09:01)
[2017-06-25 10:15] LABS: BASO % 0.6 % (0.0-2.0); EOS # 0.1 K/uL (0.0-0.7); EOS % 1.7 % (0.0-4.0); HEMATOCRIT 30.4 % (34.0-47.0); LYMPH # 1.4 K/uL (1.0-4.3); LYMPH % 19.1 % (20.0-40.0); MEAN CELL VOLUME 84.9 fl (81.0-99.0); MEAN CORPUSCULAR HEMOGLOBIN 27.8 pg (27.0-31.0); MEAN CORPUSCULAR HGB CONC 32.8 g/dL (33.0-37.0); MEAN PLATELET VOLUME 7.4 fl (7.2-11.7); MONO # 0.8 K/uL (0.0-0.8); MONO % 10.6 % (0.0-10.0); NRBC % 0.1 % (0.0-0.0); RED CELL DISTRIBUTION WIDTH 18.1 % (11.5-14.5); WHITE BLOOD COUNT 7.4 K/uL (4.8-10.8)
[2017-06-25] MEDS ORDERED: Digoxin 500 mcg/2ml (0.5 mg/2ml) Inj IVP SCH (10:15)
[2017-06-25] MEDS ORDERED: Sodium Chloride 0.9% 1,000 ML IV SCH ×2 (10:15)
[2017-06-25 10:25] LABS: PARTIAL THROMBOPLASTIN TIME 30.9 Seconds (25.6-37.1)
[2017-06-25 10:29] LABS: BLOOD UREA NITROGEN 54 mg/dl (7-17); CALCIUM 8.6 mg/dL (8.4-10.2); CARBON DIOXIDE 24 mmol/L (22-30); CHLORIDE 99 mmol/L (98-107); GFR AFRICAN-AMERICAN 52; GLUCOSE,RANDOM 112 mg/dL (65-105); POTASSIUM 3.6 MMOL/L (3.6-5.0); SODIUM 137 mmol/l (132-148)
[2017-06-25 10:55] VITALS: BP 84/53; PULSE 136; O2SAT 95
[2017-06-25 10:58] VITALS: PULSE 135
--- NOTE | 2017-06-25 12:19 | PCM.RRT ---
LINER INSERTER Nurse Assessment - Situation LINER INSERTER Responder Arrival Time: 10:05 Location: TCU Room Number: [id number] LINER INSERTER Reason for Call: Hypotension LINER INSERTER Called By: RN - IV IV Inserted during LINER INSERTER?: Yes New IV Insertion Tolerance:: Fair - Respiratory Oxygen Delivery Method: Nasal Cannula Received Nebulizer Treatments: No Was the Patient Ventilated with Bag/Mask 100% O2?: No Secretions Suctioned?: No Was the Patient Intubated?: No Was the Patient Placed on a Ventilator?: No - Medication Medications Administered During LINER INSERTER: Digoxin .250mg IV - Diagnostic Test Ordered EKG: Yes Chest X-Ray: No CT Scan: No - Stat Labs Ordered LINER INSERTER Stat Labs Ordered: CBC, BMP, TROPONIN CPR started during LINER INSERTER?: No - Vital Signs Vital Signs: Rapid Response Vital Sign Blood Pressure 84/63 Pulse Rate 136 Respiratory Rate 16 Temperature 97.3 F Oxygen Saturation 93 - Maninder Coma Scale Coma Scale Eye Opening: To verbal stimuli - Sepsis Screen Part 1 Sepsis Screen Part 1: Hypotensive - Time LINER INSERTER Ended Time LINER INSERTER Ended: 10:20 - Vital Signs at end of LINER INSERTER Vital Signs at end of LINER INSERTER: Rapid Response End Vital Sign Blood Pressure 93/72 Pulse Rate 135 Respiratory Rate 16 - Recommendations LINER INSERTER Level of Care Recommendations: Discharge to Emergency Room I.Reason for LINER INSERTER - A) Acute Change in Patient: (Select all that apply): Staff member or family is worried about patient - Neurological Status (Select all that apply): Alert, Responsive, Oriented, Verbal - Respiratory Oxygen Delivery Method: Nasal Cannula @L/min - Constitutional Appears: Well, No Acute Distress - Head Head Exam: ATRAUMATIC, NORMAL INSPECTION - Eyes Eye Exam: EOMI, Normal appearance - Respiratory Exam Respiratory Exam: Clear to Ausculation Bilateral, NORMAL BREATHING PATTERN. absent: Wheezes - Cardiovascular Exam Cardiovascular Exam: Irregular Rhythm, +S1, +S2 - GI/Abdominal Exam GI & Abdominal Exam: Soft, Normal Bowel Sounds. absent: Tenderness - Neurological Exam Neurological Exam: Alert, Awake, Oriented x3 - Extremities Exam Extremities Exam: Normal Inspection Plan - Assessment of Findings&Treatment Plan 82 YO Female with PMH of a fib, COPD was seen unresponsive by nurse with bp 84/ 63 sat 92% pulse 138 and LINER INSERTER was called. Team arrived, pt was seen awake and AAOx 3 and responsive. Pt denies chest pain, dyspnea, abdominal pain, weakness, seen in no acute distress. On monitor, a fib with RVR, with tachycardia and hypotensive. pt asymptomatic. Given 1L IV fluids, pt did not respond, remain hypotensive. 0.25mg IV of Digoxin administered BP respond 93/72 but pt remain in a fib and tachycardic. Pt transferred to ER for readmission to telemetry. EKG read by me, a fib with rate of 136 1) A fib with RVR -HR in the 130's -pt asymptomatic -1L of IV fluids administered, bp did not respond -0.25mg of digoxin given, mild elevation in BP 93/72 -cbc, cmp, trops, coau and ekg ordered. -pt to be transferred to telemetry for further management
--- NOTE | 2017-06-25 12:47 | CP.PCM.DIS ---
Provider - Provider Date of Admission: 06/10/17 17:36 Attending physician: Ernesto Baker MD Time Spent in preparation of Discharge (in minutes): 30 Diagnosis - Discharge Diagnosis (1) Afib Status: Acute (2) Acute on chronic left systolic heart failure Status: Acute (3) Atrial fibrillation with controlled ventricular rate Status: Acute (4) History of permanent cardiac pacemaker placement Status: Acute Hospital Course - Lab Results Lab Results: Micro Results 06/16/17 19:16 Sputum Gram Stain - Final 06/16/17 19:16 Sputum Sputum Culture - Final Klebsiella Pneumoniae Most Recent Lab Values WBC 7.4 K/uL (4.8-10.8) 06/25/17 10:00 RBC 3.58 Mil/uL (3.80-5.20) L 06/25/17 10:00 Hgb 9.9 g/dL (12.0-16.0) L 06/25/17 10:00 Hct 30.4 % (34.0-47.0) L 06/25/17 10:00 MCV 84.9 fl (81.0-99.0) D 06/25/17 10:00 MCH 27.8 pg (27.0-31.0) 06/25/17 10:00 MCHC 32.8 g/dL (33.0-37.0) L 06/25/17 10:00 RDW 18.1 % (11.5-14.5) H 06/25/17 10:00 Plt Count 286 K/uL (130-400) 06/25/17 10:00 MPV 7.4 fl (7.2-11.7) 06/25/17 10:00 Neut % (Auto) 68.0 % (50.0-75.0) 06/25/17 10:00 Lymph % (Auto) 19.1 % (20.0-40.0) L 06/25/17 10:00 [place] % (Auto) 10.6 % (0.0-10.0) H 06/25/17 10:00 Eos % (Auto) 1.7 % (0.0-4.0) 06/25/17 10:00 Baso % (Auto) 0.6 % (0.0-2.0) 06/25/17 10:00 Neut # 5.0 K/uL (1.8-7.0) 06/25/17 10:00 Lymph # 1.4 K/uL (1.0-4.3) 06/25/17 10:00 [place] # 0.8 K/uL (0.0-0.8) 06/25/17 10:00 Eos # 0.1 K/uL (0.0-0.7) 06/25/17 10:00 Baso # 0.0 K/uL (0.0-0.2) 06/25/17 10:00 PT 38.6 Seconds (9.8-13.1) H 06/25/17 10:00 INR 3.3 (0.9-1.2) H 06/25/17 10:00 APTT 30.9 Seconds (25.6-37.1) 06/25/17 10:00 Sodium 137 mmol/l (132-148) 06/25/17 10:00 Potassium 3.6 MMOL/L (3.6-5.0) 06/25/17 10:00 Chloride 99 mmol/L (98-107) 06/25/17 10:00 Carbon Dioxide 24 mmol/L (22-30) 06/25/17 10:00 Anion Gap 17 (10-20) 06/25/17 10:00 BUN 54 mg/dl (7-17) H 06/25/17 10:00 Creatinine 1.2 mg/dL (0.7-1.2) 06/25/17 10:00 Est GFR ( Amer) 52 06/25/17 10:00 Est GFR (Non-Af Amer) 43 06/25/17 10:00 POC Glucose (mg/dL) 140 mg/dL (65-110) H 06/25/17 09:50 Random Glucose 112 mg/dL (65-105) H 06/25/17 10:00 Calcium 8.6 mg/dL (8.4-10.2) 06/25/17 10:00 Total Bilirubin 0.8 mg/dl (0.2-1.3) 06/15/17 11:01 AST 35 U/L (14-36) 06/15/17 11:01 ALT 18 U/L (9-52) 06/15/17 11:01 Alkaline Phosphatase 95 U/L (38-126) 06/15/17 11:01 Troponin I < 0.0120 ng/mL (0.00-0.120) 06/25/17 10:00 NT-Pro-B Natriuret Pep 4400 pg/ml (0-900) H 06/15/17 13:24 Total Protein 7.0 G/DL (6.3-8.2) 06/15/17 11:01 Albumin 3.6 g/dL (3.5-5.0) 06/15/17 11:01 Globulin 3.4 gm/dL (2.2-3.9) 06/15/17 11:01 Albumin/Globulin Ratio 1.1 (1.0-2.1) 06/15/17 11:01 - Hospital Course Hospital Course: 82 yo female with history of Chronic AFib, COPD and Hypothyroidism was initially admitted at [facility] because of nausea and vomiting found later to have non-bleeding gastric ulcer on endoscopy. She was managed with Protonix and did well. She was brought to TCU for therapy because of deconditioning. Pt was called for RESIDENTIAL PROGRAM DIRECTOR, uncontrolled afib and hypotension. Patient was sent to ER for further eval and tx. 1. CHF CXray showed increased bronchovascular markings compared to xrays in Dec, 2016 ProBNP: 4400 Troponins: not elevated Lasix changed to 40 mg po daily cardiology consult with Dr Kaylin oliveira 2. COPD Duoneb q 4hrs prn for wheezing or SOB had relief with SOB earlier after getting Duoneb pulmonology consult with Dr Mir 3. Chronic AFib irregular, on and off tachycardia continue Metoprolol- switched back to 25 mg po BID due to hypotension- will see if heart rate continues to remain controlled. on Eliquis 2.5mg PO BID 4. Gastric Ulcer continue Protonix Discharge Exam - Head Exam Head Exam: ATRAUMATIC, NORMAL INSPECTION - Eye Exam Eye Exam: EOMI, Normal appearance, PERRL Pupil Exam: NORMAL ACCOMODATION - ENT Exam ENT Exam: Mucous Membranes Moist, Normal Oropharynx - Neck Exam Neck exam: Full Rom, Normal Inspection - Respiratory Exam Respiratory Exam: Clear to PA & Lateral, NORMAL BREATHING PATTERN - Cardiovascular Exam Cardiovascular Exam: RRR, +S1, +S2 - GI/Abdominal Exam GI & Abdominal Exam: Normal Bowel Sounds, Soft. absent: Mass, Organomegaly, Tenderness - Extremities Exam Extremities exam: normal capillary refill, pedal pulses present - Back Exam Back exam: absent: CVA tenderness (L), CVA tenderness (R) - Neurological Exam Neurological exam: Alert, Oriented x3 - Psychiatric Exam Psychiatric exam: Normal Affect, Normal Mood - Skin Skin Exam: Dry, Normal Color, Warm Discharge Plan - Discharge Medications Prescriptions: Albuterol 0.083% [Albuterol 0.083% Inhal Pippa (2.5 mg/3 ml) UD] 2.5 mg INH RQ6 PRN 30 Days #1 neb PRN Reason: Shortness Of Breath Apixaban [Eliquis] 2.5 mg PO BID 30 Days #60 tab clonazePAM [Klonopin] 0.5 mg PO DAILY #30 tab Docusate [Colace] 100 mg PO BID 30 Days #60 cap Furosemide [Lasix] 40 mg PO DAILY 30 Days #30 tab Levothyroxine [Synthroid] 88 mcg PO DAILY 60 Days #30 tab Magnesium Oxide [Magox 400] 400 mg PO BID 30 Days #60 tablet Megestrol [Megace] 40 mg PO DAILY 30 Days #30 tab Metoprolol Tartrate [Lopressor] 25 mg PO Q12 30 Days #60 tab Multivit with Minerals/Lutein [Milltrium Senior Multivit Tab] 1 tab PO DAILY 30 Days #30 tablet Pantoprazole [Protonix EC Tab] 40 mg PO DAILY 30 Days #30 ect Pravastatin Sodium [Pravachol] 20 mg PO DAILY 30 Days #30 tab traZODone [Desyrel] 50 mg PO HS 30 Days #30 tab - Follow Up Plan Condition: GOOD Disposition: Trans to Other Acute Care Hosp Instructions: Heart Failure (DC), Heart Failure (GEN), Pacemaker (DC), Pacemaker (GEN), Pulmonary Edema (DC), Pulmonary Edema (GEN), Ascites (DC), Ascites (GEN)
--- NOTE | 2017-06-26 08:49 | CARD ---
APPROVED REPORT EKG Measurement Heart [id number] <Conclusion> Atrial fibrillation with rapid ventricular response Incomplete right bundle branch block Abnormal ECG
== END 2017-06-25 10:00 | disposition short-term general hospital (02) | DRG 308 ==
LOC: H.TCU 17:36
PROC: F07Z9FZ Gait Training/Functional Ambulation Treatment using Assistive, Adaptive, Supportive or Protective Equipment (ICD-10-PCS; principal; 2017-06-10)
PROC: 3E0F73Z Introduction of Anti-inflammatory into Respiratory Tract, Via Natural or Artificial Opening (ICD-10-PCS; 2017-06-10)
PROC: 3E0F7GC Introduction of Other Therapeutic Substance into Respiratory Tract, Via Natural or Artificial Opening (ICD-10-PCS; 2017-06-10)
PROC: F08Z4FZ Home Management Treatment using Assistive, Adaptive, Supportive or Protective Equipment (ICD-10-PCS; 2017-06-11)
DX: I48.2 Chronic atrial fibrillation (principal); I50.23 Acute on chronic systolic (congestive) heart failure; Z99.81 Dependence on supplemental oxygen; J44.9 Chronic obstructive pulmonary disease, unspecified; K25.9 Gastric ulcer, unspecified as acute or chronic, without hemorrhage or perforation; I11.0 Hypertensive heart disease with heart failure; I95.1 Orthostatic hypotension; I25.10 Atherosclerotic heart disease of native coronary artery without angina pectoris; E03.9 Hypothyroidism, unspecified; E78.5 Hyperlipidemia, unspecified; R00.0 Tachycardia, unspecified; Z96.643 Presence of artificial hip joint, bilateral; Z95.0 Presence of cardiac pacemaker; Z87.891 Personal history of nicotine dependence; Z87.01 Personal history of pneumonia (recurrent); Z87.11 Personal history of peptic ulcer disease; Z87.442 Personal history of urinary calculi

== ENCOUNTER 2017-06-25 10:25 | Inpatient (IN) | payer MEDICARE ==
[2017-06-25 10:27] VITALS: PULSE 88
[2017-06-25 10:36] VITALS: BMI 25.0
--- NOTE | 2017-06-25 10:41 | ED PDOC ---
HPI: SOB/CHF/COPD Time Seen by Provider: 06/25/17 10:28 Chief Complaint (Nursing): Shortness Of Breath Chief Complaint (Provider): Afib History Per: Patient, Family, Other (Dr. Perez and Dr. Cowart) History/Exam Limitations: no limitations Onset/Duration Of Symptoms: Days (Today) Additional Complaint(s): Pt. found to be in afib in subacute rehab so sent to the ED. Dr. Perez started dig and meds for tx. Pt. has bp in 80s systolic, fluids given at that time. Pt. currently with mild dyspnea and weakness all over. No chest pain, abd pain , palpitations, dizziness, headaches, numbness, tingles. Past Medical History Reviewed: Historical Data, Nursing Documentation, Vital Signs Vital Signs: Last Vital Signs Temp 97.6 F 06/25/17 10:36 Pulse 119 H 06/25/17 10:36 Resp 18 06/25/17 10:36 BP 105/67 06/25/17 10:36 Pulse Ox 97 06/25/17 10:36 - Medical History PMH: Anxiety, Arthritis, Atrial Fibrillation, CAD, Cardia Arrhythmia, CHF, COPD , Fractures (left hip arthoplasty(10 yrs ago)), HTN, Hypercholesterolemia, Hypothyroidism, Pneumonia Denies: HIV, Chronic Kidney Disease - Surgical History Surgical History: Pacemaker - Family History Family History: States: Unknown Family Hx - Living Arrangements Living Arrangements: With Family - Social History Alcohol: None Drugs: Denies - Home Medications Home Medications: Ambulatory Orders Medication Instructions Recorded Albuterol 0.083% [Albuterol 0.083% 2.5 mg INH RQ6 PRN 30 Days #1 neb 06/24/17 Inhal Pippa (2.5 mg/3 ml) UD] Apixaban [Eliquis] 2.5 mg PO BID 30 Days #60 tab 06/24/17 Docusate [Colace] 100 mg PO BID 30 Days #60 cap 06/24/17 Furosemide [Lasix] 40 mg PO DAILY 30 Days #30 tab 06/24/17 Levothyroxine [Synthroid] 88 mcg PO DAILY 60 Days #30 tab 06/24/17 Magnesium Oxide [Magox 400] 400 mg PO BID 30 Days #60 tablet 06/24/17 Megestrol [Megace] 40 mg PO DAILY 30 Days #30 tab 06/24/17 Metoprolol Tartrate [Lopressor] 25 mg PO Q12 30 Days #60 tab 06/24/17 Multivit with Minerals/Lutein 1 tab PO DAILY 30 Days #30 tablet 06/24/17 [Milltrium Senior Multivit Tab] Pantoprazole [Protonix EC Tab] 40 mg PO DAILY 30 Days #30 ect 06/24/17 Pravastatin Sodium [Pravachol] 20 mg PO DAILY 30 Days #30 tab 06/24/17 clonazePAM [Klonopin] 0.5 mg PO DAILY #30 tab 06/24/17 traZODone [Desyrel] 50 mg PO HS 30 Days #30 tab 06/24/17 - Allergies Allergies/Adverse Reactions: Allergies Allergy/AdvReac Type Severity Reaction Status Date / Time No Known Allergies Allergy Verified 06/10/17 18:16 Review of Systems ROS Statement: Except As Marked, All Systems Reviewed And Found Negative Constitutional: Positive for: Weakness Respiratory: Positive for: Shortness of Breath Neurological: Positive for: Weakness Physical Exam - Reviewed Nursing Documentation Reviewed: Yes Vital Signs Reviewed: Yes - Physical Exam Appears: Positive for: Non-toxic, No Acute Distress Head Exam: Positive for: ATRAUMATIC, NORMAL INSPECTION, NORMOCEPHALIC Skin: Positive for: Normal Color, Warm, DRY Eye Exam: Positive for: EOMI, Normal appearance, PERRL ENT: Positive for: Normal ENT Inspection Neck: Positive for: Normal, Painless ROM Cardiovascular/Chest: Positive for: Tachycardia, Irregularly Irregular Respiratory: Positive for: Decreased Breath Sounds. Negative for: Accessory Muscle Use Gastrointestinal/Abdominal: Positive for: Normal Exam, Bowel Sounds, Soft. Negative for: Tenderness Back: Positive for: Normal Inspection. Negative for: L CVA Tenderness, R CVA Tenderness Extremity: Positive for: Normal ROM. Negative for: Tenderness, Pedal Edema Neurologic/Psych: Positive for: Alert, prepared foods team leader II-XII, Oriented. Negative for: Motor/Sensory Deficits - ECG ECG: Positive for: Interpreted By Me, Viewed By Me Interpretation Of Abn EKG: afib O2 Sat by Pulse Oximetry: 97 Pulse Ox Interpretation: Normal - Progress ED Course And Treament: 1043: Stable. Dr. Cowart knows pt. well. Wants ct head and will admit tele for afib. BP 105 systolic currently. Disposition - Clinical Impression Clinical Impression: Afib - Patient ED Disposition Is Patient to be Admitted: No - Disposition Disposition Time: 10:43 Condition: FAIR - Pt Status Changed To: Hospital Disposition Of: Inpatient - Admit Certification Admit to Inpatient:: After my assessment, the patient will require hospitalization for at least two midnights. This is because of the severity of symptoms shown, intensity of services needed, and/or the medical risk in this patient being treated as an outpatient. - POA Present On Arrival: None
--- NOTE | 2017-06-25 11:42 | CT ---
PROCEDURE: CT HEAD WITHOUT CONTRAST. HISTORY: headache COMPARISON: None available. TECHNIQUE: Axial computed tomography images were obtained through the head/brain without intravenous contrast. Radiation dose: Total exam DLP = 852.09 mGy-cm. This CT exam was performed using one or more of the following dose reduction techniques: Automated exposure control, adjustment of the mA and/or kV according to patient size, and/or use of iterative reconstruction technique. FINDINGS: HEMORRHAGE: No intracranial hemorrhage. BRAIN: No mass effect or edema. Moderate atrophy with frontal predominance. Moderate periventricular white matter lucency particularly notable about the frontal horns of the lateral ventricles. No evidence of acute infarct. VENTRICLES: No hydrocephalus. There is mild dilatation of the frontal horns of the lateral ventricles likely due to ex vacuo dilatation consistent with the degree of frontal atrophy. CALVARIUM: Unremarkable. PARANASAL SINUSES: Unremarkable as visualized. No significant inflammatory changes. MASTOID AIR CELLS: Unremarkable as visualized. No inflammatory changes. OTHER FINDINGS: None. IMPRESSION: No intracranial hemorrhage. Age related atrophy and chronic white matter ischemic change. No intracranial mass or evidence of acute infarct.
[2017-06-25] MEDS: Sodium Chloride 0.9% 1,000 ML IV SCH (12:15)
--- NOTE | 2017-06-25 13:11 | CP.PCM.HP ---
History of Present Illness - History of Present Illness History of Present Illness: CC: afib and low blood pressure 82 yo female with history of Chronic AFib, CHF, s/p ppm, COPD, HTN, HLD, anxiety , and Hypothyroidism was initially admitted at [facility] because of nausea and vomiting found later to have non-bleeding gastric ulcer on endoscopy. She was managed with Protonix and did well. She was brought to TCU for therapy for deconditioning and tolerated PT well. Today RESERVE OPERATOR was called in TCU for uncontrolled AFib and hypotension with systolic BP ranging 85-90. Patient was given NS bolus 500cc and IV dig 0.25 x1. BP is now 124/74, labs found patient to have acute kidney injury, 54/1.2. HR controlled at 78-90bpm. Will admit to tele to monitor Afib, VICENTE, monitor CHF, COPD. ROS: per HPI all other systems reviewed and neg PMSH: Chronic AFib, CHF, s/p ppm, COPD, HTN, HLD, anxiety, and Hypothyroidism s/ p L THR 2014 FH: denies SH: former smoker, denies ETOH, IVDU Meds: as below NKDA VITALS REVIEWED 98 124/74 90 18 98 ra GEN: WDWN, ALERT, COOPERATIVE HEENT: NCAT, PERRL, EOMI HEART: +S1+S2, RRR NO MRG LUNG: CTAB, NO WRR ABD: SOFT BSX4 NT ND NO HSM NO MASS EXT: WARM, WELL PERFUSED NEURO: AA0X3, STRENGTH AND SENSATION EQUAL AND BILATERAL SKIN: WARM DRY PSYCH: NORMAL MOOD NORMAL AFFECT labs earlier today from rapid response Hemoglobin and hematocrit 9.9 over 30.4 White blood cell count 7.4 Platelets 286 INR 3.3 Sodium 137 Potassium 2.6 Chloride 99 CA O2 24 B1 54 Creatinine 1.2 Troponin negative 1 no imaging studies at present active medications Tylenol for fever Albuterol 4 shortness of breath Synthroid 88 g daily Megace 40 mg daily Lopressor 25 mg by mouth every 12 hours Normal saline at 100 mL per hour Zofran when necessary Protonix 40 mg by mouth daily 82 yo female with history of Chronic AFib, CHF, s/p ppm, COPD, HTN, HLD, anxiety , and Hypothyroidism was initially admitted at [facility] because of nausea and vomiting found later to have non-bleeding gastric ulcer on endoscopy. She was managed with Protonix and did well. She was brought to TCU for therapy for deconditioning and tolerated PT well. Today RESERVE OPERATOR was called in TCU for uncontrolled AFib and hypotension with systolic BP ranging 85-90. Patient was given NS bolus 500cc and IV dig 0.25 x1. BP is now 124/74, labs found patient to have acute kidney injury, 54/1.2. HR controlled at 78-90bpm. Will admit to tele to monitor Afib, VICENTE, monitor CHF, COPD. AFib currently rate controlled continue Metoprolol- switched back to 25 mg po BID due to hypotension on Eliquis 2.5mg PO BID Hypotension resolved with 500 cc bolus NS will continue to hydrate restart Metoprolol for HR control at 25 mg PO q12 with holding parameters HOLD SBP <110 HR <60 VICENTE BUN/Cr 54/1.2 received 500 cc NS, continue at 100cc NS and recheck tomorrow uncertain of pt LVF, will conservatively hydrate CHF stable dc lasix due to hypotension careful monitoring of fluid status COPD Duoneb q 4hrs prn for wheezing or SOB Gastric Ulcer continue Protonix Present on Admission - Present on Admission Any Indicators Present on Admission: No Past Patient History - Tetanus Immunizations Tetanus Immunization: Unknown - Past Medical History & Family History Past Medical History?: Yes - Past Social History Alcohol: None Drugs: Denies - CARDIAC Hx Cardiac Disorders: Yes - PULMONARY Hx Respiratory Disorders: Yes - NEUROLOGICAL Hx Neurological Disorder: No - HEENT Hx HEENT Problems: No - RENAL Hx Chronic Kidney Disease: No - ENDOCRINE/METABOLIC Hx Hypothyroidism: Yes - HEMATOLOGICAL/ONCOLOGICAL Hx Human Immunodeficiency Virus (HIV): No - INTEGUMENTARY Hx Dermatological Problems: No - MUSCULOSKELETAL/RHEUMATOLOGICAL Hx Arthritis: Yes Hx Fractures: Yes (left hip arthoplasty(10 yrs ago)) - GASTROINTESTINAL Hx Gastrointestinal Disorders: No - GENITOURINARY/GYNECOLOGICAL Hx Genitourinary Disorders: No - PSYCHIATRIC Hx Anxiety: Yes - SURGICAL HISTORY Hx Surgeries: Yes Hx Joint Replacement: Yes (left THR, 2 yrs ago) Hx Orthopedic Surgery: Yes Other/Comment: Pacemaker/ Pleurex at right chest - ANESTHESIA Hx Anesthesia: Yes Hx Anesthesia Reactions: No Hx Malignant Hyperthermia: No Meds Allergies/Adverse Reactions: Allergies Allergy/AdvReac Type Severity Reaction Status Date / Time No Known Allergies Allergy Verified 06/10/17 18:16 Results - Vital Signs Recent Vital Signs: Last Vital Signs Temp 98.0 F 06/25/17 12:55 Pulse 90 06/25/17 12:55 Resp 18 06/25/17 12:55 BP 124/74 06/25/17 12:55 Pulse Ox 91 L 06/25/17 12:55
[2017-06-25] MEDS: Pantoprazole 40 mg EC Tab PO SCH (14:00)
[2017-06-25] MEDS: Pravastatin Sodium 20 MG TAB PO SCH (18:08)
[2017-06-26] MEDS ORDERED: Metoprolol 1 mg/ml Inj IVP STA (00:31)
[2017-06-26] MEDS: Sodium Chloride 0.9% 1,000 ML IV SCH ×3 (01:25→15:52)
[2017-06-26] MEDS: Levothyroxine 88 MCG TAB PO SCH (05:32)
[2017-06-26 06:10] LABS: MEAN CELL VOLUME 87.4 fl (81.0-99.0); MEAN CORPUSCULAR HEMOGLOBIN 27.4 pg (27.0-31.0); MEAN CORPUSCULAR HGB CONC 31.4 g/dL (33.0-37.0); RED CELL DISTRIBUTION WIDTH 17.9 % (11.5-14.5); WHITE BLOOD COUNT 7.9 K/uL (4.8-10.8)
[2017-06-26 07:25] LABS: BLOOD UREA NITROGEN 42 mg/dl (7-17); CALCIUM 7.8 mg/dL (8.4-10.2); CARBON DIOXIDE 24 mmol/L (22-30); CHLORIDE 103 mmol/L (98-107); GFR AFRICAN-AMERICAN > 60; GLUCOSE,RANDOM 86 mg/dL (65-105); POTASSIUM 3.2 MMOL/L (3.6-5.0); SODIUM 140 mmol/l (132-148)
[2017-06-26] MEDS: Pantoprazole 40 mg EC Tab PO SCH (08:54)
--- NOTE | 2017-06-26 11:52 | CP.PCM.CON ---
History of Present Illness - History of Present Illness History of Present Illness: 82 yo female with history of Chronic AFib, COPD and Hypothyroidism was initially admitted at [facility] because of nausea and vomiting found later secondary to non-bleeding gastric ulcer on endoscopy. She did well after she was placed on NPO and managed with Protonix. She was brought to TCU for therapy because of deconditioning. Yesterday pt went into Atrial fibrillation w/ RVR and transferred to Telemetry NB: pt had been on Cardizem--which was stopped in TCU EKG: atrial fibrillation RVR PMH: Atrial Fibrillation, CAD, CHF, COPD, HTN, HLD, Hypothyroidism, Pneumonia, Diverticulosis; Cholelithiasis; Left renal stone, compression fx T12 and L3 Left THR Former heavy smoker PSH; Pacemaker placement, bilateral Hip replacement Past Patient History - Tetanus Immunizations Tetanus Immunization: Unknown - Past Medical History & Family History Past Medical History?: Yes - Past Social History Alcohol: None Drugs: Denies - CARDIAC Hx Cardiac Disorders: Yes - PULMONARY Hx Respiratory Disorders: Yes - NEUROLOGICAL Hx Neurological Disorder: No - HEENT Hx HEENT Problems: No - RENAL Hx Chronic Kidney Disease: No - ENDOCRINE/METABOLIC Hx Hypothyroidism: Yes - HEMATOLOGICAL/ONCOLOGICAL Hx Human Immunodeficiency Virus (HIV): No - INTEGUMENTARY Hx Dermatological Problems: No - MUSCULOSKELETAL/RHEUMATOLOGICAL Hx Arthritis: Yes Hx Fractures: Yes (left hip arthoplasty(10 yrs ago)) - GASTROINTESTINAL Hx Gastrointestinal Disorders: No - GENITOURINARY/GYNECOLOGICAL Hx Genitourinary Disorders: No - PSYCHIATRIC Hx Anxiety: Yes - SURGICAL HISTORY Hx Surgeries: Yes Hx Joint Replacement: Yes (left THR, 2 yrs ago) Hx Orthopedic Surgery: Yes Other/Comment: Pacemaker/ Pleurex at right chest - ANESTHESIA Hx Anesthesia: Yes Hx Anesthesia Reactions: No Hx Malignant Hyperthermia: No Meds Allergies/Adverse Reactions: Allergies Allergy/AdvReac Type Severity Reaction Status Date / Time No Known Allergies Allergy Verified 06/10/17 18:16 - Medications Medications: Current Medications Acetaminophen (Tylenol 325mg Tab) 650 mg PO Q6 PRN PRN Reason: Fever >100.4 F Albuterol Sulfate (Albuterol 0.083% Inhal Pippa (2.5 Mg/3 Ml) Ud) 2.5 mg INH RQ6 PRN PRN Reason: Shortness of Breath Apixaban (Eliquis) 2.5 mg PO BID [facility] PRN Reason: Protocol Last Admin: 06/26/17 08:53 Dose: 2.5 mg Docusate Sodium (Colace) 100 mg PO BID [facility] Last Admin: 06/26/17 08:52 Dose: 100 mg Sodium Chloride (Sodium Chloride 0.9%) 1,000 mls @ 100 mls/hr IV .Q10H [facility] Stop: 06/26/17 12:14 Last Admin: 06/26/17 04:04 Dose: 100 mls/hr Diltiazem HCl 100 mg/ Sodium (Chloride) 100 mls @ 5 mls/hr IV .Q20H ONE; 5 MG/ HR PRN Reason: Protocol Stop: 06/27/17 03:46 Last Admin: 06/26/17 08:51 Dose: 5 mls/hr Levothyroxine Sodium (Synthroid) 88 mcg PO DAILY@0630 [facility] Last Admin: 06/26/17 05:32 Dose: 88 mcg Megestrol Acetate (Megace) 40 mg PO BID [facility] Last Admin: 06/26/17 08:54 Dose: 40 mg Metoprolol Tartrate (Lopressor) 25 mg PO Q12 [facility] Last Admin: 06/26/17 08:53 Dose: 25 mg Ondansetron HCl (Zofran Inj) 4 mg IVP Q6 PRN PRN Reason: Nausea/Vomiting Pantoprazole Sodium (Protonix Ec Tab) 40 mg PO DAILY [facility] Last Admin: 06/26/17 08:54 Dose: 40 mg Pravastatin Sodium (Pravachol) 20 mg PO DAILY@1800 [facility] Last Admin: 06/25/17 18:08 Dose: 20 mg Physical Exam - Respiratory Exam Respiratory Exam: NORMAL BREATHING PATTERN - Cardiovascular Exam Cardiovascular Exam: Tachycardia, Irregular Rhythm Results - Vital Signs Recent Vital Signs: Last Vital Signs Temp 97.4 F L 06/26/17 08:00 Pulse 126 H 06/26/17 09:00 Resp 20 06/26/17 08:00 BP 116/75 06/26/17 08:53 Pulse Ox 96 06/26/17 08:00 - Labs Result Diagrams: 06/26/17 04:30 06/26/17 04:30 Labs: Laboratory Results - last 24 hr 06/26/17 06/26/17 06/26/17 04:30 04:30 04:30 WBC 7.9 RBC 3.55 L Hgb 9.7 L Hct 31.0 L MCV 87.4 D MCH 27.4 MCHC 31.4 L RDW 17.9 H Plt Count 293 Sodium 140 Potassium 3.2 L Chloride 103 Carbon Dioxide 24 Anion Gap 16 BUN 42 H Creatinine 1.0 Est GFR ( Amer) > 60 Est GFR (Non-Af Amer) 53 Random Glucose 86 Calcium 7.8 L Digoxin 0.8 Assessment & Plan (1) Atrial fibrillation with rapid ventricular response Assessment and Plan: will restart pt on cardizem Status: Acute
--- NOTE | 2017-06-26 12:10 | PQF GENQUE ---
Dr. Sofya Cowart, Etiology of Hypotension? OR: Unable to determine ER note; Pt. found to be in afib in subacute rehab so sent to the ED. Dr. Perez started dig and meds for tx. Pt. has bp in 80s systolic, fluids given at that time. ---10:43: B/P 105 systolic currently H and P; Hypotension ;resolved with 500 cc bolus NS ;will continue to hydrate ; restart Metoprolol for HR control at 25 mg PO q12 with holding parameters HOLD SBP <110 HR <60 This form is a permanent part of the medical record Clarification of your documentation is requested to better reflect the severity of illness and intensity of treatment of your patient. Indicators present [] Specify: [] [] Specify: [] [] Specify: [] [] Specify: [] Location in the medical record that reflects the above clinical findings: [] Treatment Provided: [] PHYSICIAN'S RESPONSE Based on your medical judgment of the clinical indicators outlined above please clarify the following: VOLUME CONTRACTION [] Practitioner response [] If unable to determine, please check the box, sign and date. Present On Admission (POA) Indicator: [] Present at the time of admission [] Not present at the time of admission [] Clinically Undetermined In responding to this query, please exercise your independent professional judgment. The fact that a question is asked does not imply that any particular answer is desired or expected. Thank you for your clarification on this documentation. If you have any questions please call. * Thank you, Emma Lopez RN ext. #[phone]: Shelby JERONIMOD
--- NOTE | 2017-06-26 12:13 | PQF GENQUE ---
Dr. Sofya Cowart, Please clarify the type of atrial fibrillation: if known >> Chronic >> Paroxysmal >> Permanent >> Persistent >> Other (please specify type) >> Clinically unable to determine >> Unknown This form is a permanent part of the medical record Clarification of your documentation is requested to better reflect the severity of illness and intensity of treatment of your patient. Indicators present [] Specify: [] [] Specify: [] [] Specify: [] [] Specify: [] Location in the medical record that reflects the above clinical findings: [] Treatment Provided: [] PHYSICIAN'S RESPONSE CHRONIC Based on your medical judgment of the clinical indicators outlined above please clarify the following: [] Practitioner response [] If unable to determine, please check the box, sign and date. Present On Admission (POA) Indicator: [] Present at the time of admission [] Not present at the time of admission [] Clinically Undetermined In responding to this query, please exercise your independent professional judgment. The fact that a question is asked does not imply that any particular answer is desired or expected. Thank you for your clarification on this documentation. If you have any questions please call. * Thank you, Emma Lopez RN ext. #[phone]: Shelby Dubon RN MTDD
--- NOTE | 2017-06-26 12:18 | PQF GENQUE ---
Dr. Claude Cowart, Please specify the type and acuity of heart failure in your progress notes: TYPE: Combined systolic and diastolic Diastolic Systolic Other (please specify) Clinically unable to determine Unknown 2. ACUITY: Chronic ? Other (please specify) Clinically unable to determine Unknown H and P: CHF :stable dc lasix due to hypotension ;careful monitoring of fluid status This form is a permanent part of the medical record Clarification of your documentation is requested to better reflect the severity of illness and intensity of treatment of your patient. Indicators present [] Specify: [] [] Specify: [] [] Specify: [] [] Specify: [] Location in the medical record that reflects the above clinical findings: [] Treatment Provided: [] PHYSICIAN'S RESPONSE CHRONIC SYSTOLIC Based on your medical judgment of the clinical indicators outlined above please clarify the following: [] Practitioner response [] If unable to determine, please check the box, sign and date. Present On Admission (POA) Indicator: [] Present at the time of admission [] Not present at the time of admission [] Clinically Undetermined In responding to this query, please exercise your independent professional judgment. The fact that a question is asked does not imply that any particular answer is desired or expected. Thank you for your clarification on this documentation. If you have any questions please call. * Thank you, Emma Lopez RN ext. #[phone]:Shelby Dubon RN MTDD
[2017-06-26] MEDS: Albuterol 0.083% Inhal Sol (2.5 mg/3 mL) UD INH PRN ×2 (13:53→18:51)
[2017-06-26] MEDS ORDERED: Potassium Chloride 20 mEq/15 ml LIQ UD PO ONE (14:00)
[2017-06-26 19:14] LABS: ABG ALLEN TEST YES; ARTERIAL BLOOD GAS HCO3 21.6 mmol/L (21-28); ARTERIAL BLOOD GAS MODE 4L NC; ARTERIAL BLOOD GAS O2 CAPACITY 14.7 mL/dL (16-24); ARTERIAL BLOOD GAS O2 CONTENT 13.9 ML/dL (15-23); ARTERIAL BLOOD GAS PH 7.44 (7.35-7.45); ARTERIAL BLOOD GAS PO2 60 mm/Hg (80-100); ARTERIAL BLOOD HGB O2 SAT 91.3 % (95.0-98.0); CARBOXYHEMOGLOBIN 2.2 % (0.5-1.5); METHEMOGLOBIN 1.5 % (0.0-3.0)
[2017-06-26] MEDS ORDERED: HYDROmorphone 0.5 mg/0.5 ml ISec IVP STA (19:35)
[2017-06-26] MEDS ORDERED: HYDROmorphone 0.5 mg/0.5 ml ISec ONE (19:43)
--- NOTE | 2017-06-26 20:08 | CP.PCM.PN ---
Subjective - Date & Time of Evaluation Date of Evaluation: 06/26/17 Time of Evaluation: 10:00 - Subjective Subjective: Patient seen and evaluated bedside. Elderly female of stated age, chronically ill lying in bed complaining of chest pain and SOB.Still Afib on monitor HR 130 BP 119/82 O2Sat 91-94 % on 2 L O2 via NC Started on cardizem drip patient wants comfort care , DNR/DNI and no ICU family bedside agree with her decision Objective - Vital Signs/Intake and Output Vital Signs (last 24 hours): Temp Pulse Resp BP Pulse Ox 97.9 F 71 20 94/61 L 94 L 06/26/17 19:44 06/26/17 19:44 06/26/17 19:44 06/26/17 19:44 06/26/17 19:44 - Medications Medications: Current Medications Acetaminophen (Tylenol 325mg Tab) 650 mg PO Q6 PRN PRN Reason: Fever >100.4 F Last Admin: 06/26/17 19:50 Dose: 650 mg Albuterol Sulfate (Albuterol 0.083% Inhal Pippa (2.5 Mg/3 Ml) Ud) 2.5 mg INH RQ6 PRN PRN Reason: Shortness of Breath Last Admin: 06/26/17 18:51 Dose: 2.5 mg Apixaban (Eliquis) 2.5 mg PO BID [facility] PRN Reason: Protocol Last Admin: 06/26/17 16:00 Dose: 2.5 mg Diltiazem HCl (Cardizem) 60 mg PO Q6 [facility] Last Admin: 06/26/17 16:00 Dose: 60 mg Docusate Sodium (Colace) 100 mg PO BID [facility] Last Admin: 06/26/17 16:01 Dose: 100 mg Diltiazem HCl 100 mg/ Sodium (Chloride) 100 mls @ 5 mls/hr IV .Q20H ONE; 5 MG/ HR PRN Reason: Protocol Stop: 06/27/17 03:46 Last Admin: 06/26/17 08:51 Dose: 5 mls/hr Levothyroxine Sodium (Synthroid) 88 mcg PO DAILY@0630 [facility] Last Admin: 06/26/17 05:32 Dose: 88 mcg Megestrol Acetate (Megace) 40 mg PO BID [facility] Last Admin: 06/26/17 16:01 Dose: 40 mg Metoprolol Tartrate (Lopressor) 25 mg PO Q12 [facility] Last Admin: 06/26/17 08:53 Dose: 25 mg Ondansetron HCl (Zofran Inj) 4 mg IVP Q6 PRN PRN Reason: Nausea/Vomiting Pantoprazole Sodium (Protonix Ec Tab) 40 mg PO DAILY [facility] Last Admin: 06/26/17 08:54 Dose: 40 mg Pravastatin Sodium (Pravachol) 20 mg PO DAILY@1800 [facility] Last Admin: 06/25/17 18:08 Dose: 20 mg - Labs Labs: 06/26/17 04:30 06/26/17 04:30 - Constitutional Appears: Chronically Ill, Other (with chest pain and SOB ) - Head Exam Head Exam: ATRAUMATIC, NORMOCEPHALIC - Eye Exam Eye Exam: Normal appearance, PERRL Pupil Exam: NORMAL ACCOMODATION - ENT Exam ENT Exam: Mucous Membranes Moist, Normal Exam - Neck Exam Neck Exam: Full ROM, Normal Inspection - Respiratory Exam Respiratory Exam: Accessory Muscle Use, Decreased Breath Sounds (to right base with rales ), Prolonged Expiratory Phase, Rales (bibasilar ), Respiratory Distress. absent: Wheezes - Cardiovascular Exam Cardiovascular Exam: Tachycardia, Irregular Rhythm, +S1, +S2. absent: JVD - GI/Abdominal Exam GI & Abdominal Exam: Soft, Normal Bowel Sounds. absent: Distended, Guarding, Tenderness, Rebound - Rectal Exam Rectal Exam: Deferred - Extremities Exam Extremities Exam: Normal Capillary Refill, Normal Inspection. absent: Full ROM , Pedal Edema - Back Exam Back Exam: NORMAL INSPECTION - Neurological Exam Neurological Exam: Alert, Awake, CN II-XII Intact, Oriented x3 - Psychiatric Exam Psychiatric exam: Anxious, Flat Affect - Skin Skin Exam: Dry, Pallor Additional comments: dry skin multiple skin lesions sun induced Assessment and Plan - Assessment and Plan (Free Text) Assessment: 82 yo female with history of Chronic AFib, CHF, s/p ppm, COPD on home o2 , HTN, HLD, anxiety, and Hypothyroidism was initially admitted at [facility] because of nausea and vomiting found later to have non-bleeding gastric ulcer on endoscopy. She was managed with Protonix and did well. She was brought to TCU for therapy for deconditioning and tolerated PT well. [employer] was called in TCU for uncontrolled AFib and hypotension with systolic BP ranging 85-90. Patient was given NS bolus 500cc and IV dig 0.25 x1. Admitted to telemetry to monitor Afib, VICENTE,for CHF and COPD.Still Afib with RVR on monitor and complaining of chest and SOB . Patient wants comfort care DNR/ DNI 1.AFib with RVR rate uncontrolled Started on cardizem drip Cardiology consulted Dr. Ewing on Eliquis 2.5mg PO BID trop negative 2.CHF exacerbation with rales bilaterally unknown type of CHF or EF Will order Echo today Hold IVF Will give Lasix IV CXR showed increased fluid effusion to right base 3.Hypotension Patient has low BP hold NS due to CHF exacerbation Hold BP meds 4.VICENTE improving with fluids to 42/1 Hold IVF for now 5. Anemia Most likely chronic anemia Hgb 9.7 stable 6.COPD Duoneb q 4hrs prn for wheezing or SOB Continie O2 vi anC patient is on home O2 7.Gastric Ulcer continue Protonix 8. Anxiety on clonazepam 9. Hypothyroidism on Synthroid 10. DVt prophylaxis SCD on [facility] Code Status; DNR/ DNI
--- NOTE | 2017-06-26 20:18 | PCM.RRT ---
<Michael Brennan - Last Filed: 06/26/17 19:59> I.Reason for SPECTACLE TRUER - A) Acute Change in Patient: Subjective: SPECTACLE TRUER Time:19:03 SPECTACLE TRUER Location: [facility] SPECTACLE TRUER Reason: SOB not responsive to nebulizer S: SPECTACLE TRUER called by RN because patient was complaining of SOB exacerbated by lying flat. Pt later began complaining of chest pain. Pt noted to be lying in bed stating "I cant breathe". Pt stated during intervention that she did not want aggressive intervention, daughter at bedside, in presence of SPECTACLE TRUER Team. DNR/DNI order placed as per patients wishes, discussed with Dr. Perez. O: SPECTACLE TRUER Vitals (19:03) BP 94/61, HR 71, O2 Sat 91 General: Elderly female seen lying in bed receiving nebulizer treatment, anxious appearing Cardio: Regular rate and rhythm, no murmurs noted, chest wall non tender Lung: Rales auscultated on mid lung bases (Right>Left) SPECTACLE TRUER Interventions: 1. EKG 2. ABG 3. Troponin 4. 20mg Lasix STAT 5. Dilaudid 6. High Flow O2 15ml 7. Cxray (portable) Assessment: 82 y/o female with PMHx of COPD, Afibb, CHF, Anxiety d/o with acute dyspnea Plan: Patient's symptoms improving after receiving pain medication, diuretic, and High Flow O2. <Sofya Cowart - Last Filed: 06/27/17 10:28> SPECTACLE TRUER Nurse Assessment - Vital Signs Vital Signs: Rapid Response Vital Sign Blood Pressure 94/61 Pulse Rate 71 Respiratory Rate 22 Temperature 98 F Oxygen Saturation 94 - Vital Signs at end of SPECTACLE TRUER Vital Signs at end of SPECTACLE TRUER: Rapid Response End Vital Sign Blood Pressure 93/62 Pulse Rate 70 Respiratory Rate 20 O2 Sat by Pulse Oximetry 93 Attending/Attestation - Attestation I have personally seen and examined this patient.: Yes I have fully participated in the care of the patient.: Yes I have reviewed all pertinent clinical information, including history, physical exam and plan: Yes Notes (Text): 06/27/17 10:28 Seen and examined, discussed with Resident. Agree with findings and plan as above.
[2017-06-26] MEDS: Pravastatin Sodium 20 MG TAB PO SCH (21:21)
[2017-06-27] MEDS: Levothyroxine 88 MCG TAB PO SCH (06:15)
[2017-06-27 07:52] LABS: HEMATOCRIT 30.3 % (34.0-47.0); MEAN CELL VOLUME 86.2 fl (81.0-99.0); MEAN CORPUSCULAR HEMOGLOBIN 27.5 pg (27.0-31.0); MEAN CORPUSCULAR HGB CONC 31.9 g/dL (33.0-37.0); RED CELL DISTRIBUTION WIDTH 18.3 % (11.5-14.5); WHITE BLOOD COUNT 5.8 K/uL (4.8-10.8)
--- NOTE | 2017-06-27 08:15 | CARD ---
APPROVED REPORT EXAM: Two-dimensional and M-mode echocardiogram with Doppler and color Doppler. Other Information Quality : GoodRhythm : Atrial Fibrillation INDICATION Atrial Fibrillation 2D DIMENSIONS IVSd0.83 (0.7-1.1cm)LVDd2.95 (3.9-5.9cm) LVOT Diameter1.95 (1.8-2.4cm)PWd0.98 (0.7-1.1cm) IVSs1.20 (0.8-1.2cm)LVDs2.33 (2.5-4.0cm) FS (%) 21.0 %PWs1.42 (0.8-1.2cm) M-Mode DIMENSIONS Left Atrium (MM)3.79 (2.5-4.0cm)IVSd0.79 (0.7-1.1cm) Aortic Root3.32 (2.2-3.7cm)LVDd3.71 (4.0-5.6cm) Aortic Cusp Exc.1.56 (1.5-2.0cm)PWd1.00 (0.7-1.1cm) IVSs1.06 cmFS (%) 19 % LVDs3.00 (2.0-3.8cm)PWs1.29 cm Mitral Valve E/A ratio0.0 TDI E/Lateral E'0.0E/Medial E'0.0 Tricuspid Valve TR Peak [id number] [id number] Peak Gr.40mmHg [id number] LEFT VENTRICLE The left ventricle is normal size. There is normal left ventricular wall thickness. Left ventricle systolic function is severely impaired. The Ejection Fraction is <15%. Severe generalised hypokinesia Pt in A Fib RIGHT VENTRICLE The right ventricle is moderately dilated. There is normal right ventricular wall thickness. Systolic function is moderately reduced. ATRIA The left atrium is moderately dilated. The right atrium is moderately dilated. AORTIC VALVE The aortic valve is moderately to severely sclerotic/calcified. No aortic regurgitation is present. Adequate doppler examination could not be obtained Suspect significant Aortic valve stenosis MITRAL VALVE Mitral annular calcification is moderate to severe. There is no evidence of mitral valve prolapse. There is no mitral valve stenosis. Mitral regurgitation is moderate to severe. TRICUSPID VALVE The tricuspid valve is normal in structure. There is moderate to severe tricuspid regurgitation. Right ventricular systolic pressure is estimated at 58 mmHg. There is severe pulmonary hypertension. PULMONIC VALVE The pulmonary valve is normal in structure. There is no pulmonic valvular regurgitation. GREAT VESSELS The aortic root is normal in size. The IVC is dilated. The IVC collapses <50% with inspiration. PERICARDIAL EFFUSION The pericardium appears normal. <Conclusion> The left ventricle is normal size. There is normal left ventricular wall thickness. Severe generalised hypokinesia Left ventricle systolic function is severely impaired. The Ejection Fraction is <15%. The right ventricle is moderately dilated. Systolic function is moderately reduced. The left atrium is moderately dilated. The right atrium is moderately dilated. Suspect significant Aortic valve stenosis Mitral annular calcification is moderate to severe. Mitral regurgitation is moderate to severe. There is moderate to severe tricuspid regurgitation. There is severe pulmonary hypertension. (Rec repeat doppler examination of Aortic valve to asses gradient and degree of stenosis)
[2017-06-27 08:19] LABS: BLOOD UREA NITROGEN 34 mg/dl (7-17); CALCIUM 8.3 mg/dL (8.4-10.2); CARBON DIOXIDE 27 mmol/L (22-30); CHLORIDE 102 mmol/L (98-107); GFR AFRICAN-AMERICAN > 60; GLUCOSE,RANDOM 86 mg/dL (65-105); POTASSIUM 3.1 MMOL/L (3.6-5.0); SODIUM 141 mmol/l (132-148)
[2017-06-27] MEDS ORDERED: Potassium Chloride 20 mEq ER Tab PO ONE (09:23)
--- NOTE | 2017-06-27 09:30 | CP.PCM.PN ---
Subjective - Date & Time of Evaluation Date of Evaluation: 06/27/17 Time of Evaluation: 09:00 - Subjective Subjective: Pt had bouts of resp distress last night Echo confirms presence of significant (Degree could not be guaged due to poor dopple signal) with severe LV dysfunction as well as MT and TR with severe pulm hypertension AND a fib Have explained to the daughter poor prognosis under these circumstances Pt has a living will and she had declinned any resiscitative efforts in case of card/resp srrest During today's visit pt appears comfortable HR well controlled with few basal rales BP 114/70 mm Hg O2 sat satisfactory. Objective - Vital Signs/Intake and Output Vital Signs (last 24 hours): Temp Pulse Resp BP Pulse Ox 97.9 F 107 H 22 112/76 94 L 06/27/17 08:12 06/27/17 08:12 06/27/17 08:12 06/27/17 08:12 06/27/17 08:12 - Medications Medications: Current Medications Acetaminophen (Tylenol 325mg Tab) 650 mg PO Q6 PRN PRN Reason: Fever >100.4 F Last Admin: 06/26/17 18:50 Dose: 650 mg Albuterol Sulfate (Albuterol 0.083% Inhal Pippa (2.5 Mg/3 Ml) Ud) 2.5 mg INH RQ6 PRN PRN Reason: Shortness of Breath Last Admin: 06/26/17 18:51 Dose: 2.5 mg Apixaban (Eliquis) 2.5 mg PO BID [facility] PRN Reason: Protocol Last Admin: 06/26/17 16:00 Dose: 2.5 mg Diltiazem HCl (Cardizem) 60 mg PO Q6 [facility] Last Admin: 06/27/17 05:00 Dose: 60 mg Docusate Sodium (Colace) 100 mg PO BID [facility] Last Admin: 06/26/17 16:01 Dose: 100 mg Levothyroxine Sodium (Synthroid) 88 mcg PO DAILY@0630 [facility] Last Admin: 06/27/17 06:15 Dose: 88 mcg Megestrol Acetate (Megace) 40 mg PO BID [facility] Last Admin: 06/26/17 16:01 Dose: 40 mg Metoprolol Tartrate (Lopressor) 25 mg PO Q12 [facility] Last Admin: 06/26/17 21:21 Dose: Not Given Ondansetron HCl (Zofran Inj) 4 mg IVP Q6 PRN PRN Reason: Nausea/Vomiting Pantoprazole Sodium (Protonix Ec Tab) 40 mg PO DAILY [facility] Last Admin: 06/26/17 08:54 Dose: 40 mg Potassium Chloride (K-Dur 20 Meq Er Tab) 20 meq PO ONCE ONE Stop: 06/27/17 09:24 Pravastatin Sodium (Pravachol) 20 mg PO DAILY@1800 [facility] Last Admin: 06/26/17 21:21 Dose: Not Given - Labs Labs: 06/27/17 06:30 06/27/17 07:30
[2017-06-27] MEDS: Pantoprazole 40 mg EC Tab PO SCH (10:04)
--- NOTE | 2017-06-27 10:09 | CARD ---
APPROVED REPORT EKG Measurement Heart [id number] <Conclusion> Ventricular-paced rhythm with occasional supraventricular complexes Abnormal ECG
--- NOTE | 2017-06-27 11:16 | RAD ---
HISTORY: Dyspnea COMPARISON: 06/23/2017 FINDINGS: The right IJV line terminates at the cavoatrial junction. LUNGS: There is severe pulmonary venous congestion. PLEURA: There are small pleural effusions, no pneumothorax apparent. CARDIOVASCULAR: There is persistent moderate cardiomegaly and prominent central vasculature. There is stable position of a left-sided pacemaker. OSSEOUS STRUCTURES: No significant abnormalities. VISUALIZED UPPER ABDOMEN: Normal. OTHER FINDINGS: There are advanced atherosclerotic aortic calcifications. IMPRESSION: Congestive heart failure, worse since the prior examination.
--- NOTE | 2017-06-27 12:58 | CP.PCM.PN ---
Subjective - Date & Time of Evaluation Date of Evaluation: 06/27/17 Time of Evaluation: 10:00 - Subjective Subjective: The patient was seen and examined by myself at bedside. She appears chronically ill. Today she is not complaining of any more chest pain but does admit to some shortness of breath. She was started on Cardizem by mouth yesterday by Dr. Trevizo and is continuing to take Lopressor. Her vital signs improved, although she is minimally tachycardic. CXR performed yesterday appears to look a little worse. I discussed with the patient the possibility of a Pleurx catheter or thoracentesis to assist with fluid removal- she states that she does not want any more interventions whatsoever which is reasonable. Patient is comfort care and DNR/DNI. Patient does not want ICU transfer. She overall appears improved from yesterday. Objective - Vital Signs/Intake and Output Vital Signs (last 24 hours): Temp Pulse Resp BP Pulse Ox 97.9 F 107 H 22 112/76 94 L 06/27/17 08:12 06/27/17 10:03 06/27/17 08:12 06/27/17 10:03 06/27/17 08:12 - Medications Medications: Current Medications Acetaminophen (Tylenol 325mg Tab) 650 mg PO Q6 PRN PRN Reason: Fever >100.4 F Last Admin: 06/26/17 18:50 Dose: 650 mg Albuterol Sulfate (Albuterol 0.083% Inhal Pippa (2.5 Mg/3 Ml) Ud) 2.5 mg INH RQ6 PRN PRN Reason: Shortness of Breath Last Admin: 06/26/17 18:51 Dose: 2.5 mg Apixaban (Eliquis) 2.5 mg PO BID [facility] PRN Reason: Protocol Last Admin: 06/27/17 10:02 Dose: 2.5 mg Diltiazem HCl (Cardizem) 60 mg PO Q6 [facility] Last Admin: 06/27/17 10:01 Dose: 60 mg Docusate Sodium (Colace) 100 mg PO BID [facility] Last Admin: 06/27/17 10:02 Dose: 100 mg Furosemide (Lasix) 20 mg IVP ONCE ONE Stop: 06/28/17 12:15 Levothyroxine Sodium (Synthroid) 88 mcg PO DAILY@0630 [facility] Last Admin: 06/27/17 06:15 Dose: 88 mcg Megestrol Acetate (Megace) 40 mg PO BID [facility] Last Admin: 06/27/17 10:03 Dose: 40 mg Metoprolol Tartrate (Lopressor) 25 mg PO Q12 [facility] Last Admin: 06/27/17 10:03 Dose: 25 mg Ondansetron HCl (Zofran Inj) 4 mg IVP Q6 PRN PRN Reason: Nausea/Vomiting Pantoprazole Sodium (Protonix Ec Tab) 40 mg PO DAILY [facility] Last Admin: 06/27/17 10:04 Dose: 40 mg Potassium Chloride (K-Dur 20 Meq Er Tab) 20 meq PO DAILY [facility] Pravastatin Sodium (Pravachol) 20 mg PO DAILY@1800 [facility] Last Admin: 06/26/17 21:21 Dose: Not Given - Labs Labs: 06/27/17 06:30 06/27/17 07:30 - Additional Findings Additional findings: Physical exam: Constitutional- cooperative, awake, alert. Head- NCAT, PERRL Eye- PERRL, normal accommodation ENT- normal exam, MMM. Neck- supple, + JVD Respiratory- CTAB, + Bibasilar rales, no wheezes or rhonchi Cardiovascular- irregular rate and rhythm, + systolic ejection murmur radiating into the carotids GI/Abdominal- normal bowel sounds, soft, no mass, no hsm Skin- warm, dry- sun damage, multiple small skin lesions. Extremities Exam- normal capillary refill, normal inspection Neurological Exam- alert, CX II-XII intact Psych- normal mood, normal affect Assessment and Plan - Assessment and Plan (Free Text) Plan: Assessment: 82 yo female with history of Chronic AFib, CHF, s/p ppm, COPD on home o2 , HTN, HLD, anxiety, and Hypothyroidism was initially admitted at [facility] because of nausea and vomiting found later to have non-bleeding gastric ulcer on endoscopy. She was managed with Protonix and did well. She was brought to TCU for therapy for deconditioning and tolerated PT well; however patient was transferred to telemetry after [employer] due to atrial fibrillation with rapid ventricular response and hypotension, along with hypervolemia secondary to worsening CHF. Her fluid status is slowly improving today and her heart rate is better controlled today with Cardizem and Lopressor. She is hemodynamically stable at this time 1.AFib with RVR rate uncontrolled Started on cardizem drip Cardiology consulted Dr. Ewing on Eliquis 2.5mg PO BID trop negative 2.CHF exacerbation with rales bilaterally Echocardiogram reveals significant aortic stenosis and severe LV dysfunction with an ejection fraction of 15% along with MT and TR with severe pulmonary hypertension and atrial fibrillation Hold IVF Will administer Lasix 20 mg IV today to continue diuresis CXR showed increased fluid effusion to right base - patient refuses further interventions for drainage 3.Hypotension- resolved at this time hold NS due to CHF exacerbation - Continue Lopressor and Cardizem for rate control - Hold all other antihypertensives 4.VICENTE- improved improving with fluids to 42/1 Hold IVF for now 5. Anemia Most likely chronic anemia Hgb 9.7--> 9.6 today stable 6.COPD Duoneb q 4hrs prn for wheezing or SOB Continue O2 via nasal cannula patient is on home O2 7.Gastric Ulcer continue Protonix 8. Anxiety on clonazepam 9. Hypothyroidism on Synthroid 10. DVt prophylaxis SCD on Eliquis Code Status; DNR/ DNI,
[2017-06-28] MEDS: Levothyroxine 88 MCG TAB PO SCH (05:39)
[2017-06-28 07:26] LABS: HEMATOCRIT 29.7 % (34.0-47.0); MEAN CELL VOLUME 85.6 fl (81.0-99.0); MEAN CORPUSCULAR HEMOGLOBIN 27.2 pg (27.0-31.0); MEAN CORPUSCULAR HGB CONC 31.8 g/dL (33.0-37.0); RED CELL DISTRIBUTION WIDTH 18.3 % (11.5-14.5); WHITE BLOOD COUNT 7.3 K/uL (4.8-10.8)
[2017-06-28 07:31] LABS: BLOOD UREA NITROGEN 29 mg/dl (7-17); CALCIUM 8.4 mg/dL (8.4-10.2); CARBON DIOXIDE 26 mmol/L (22-30); CHLORIDE 102 mmol/L (98-107); GFR AFRICAN-AMERICAN > 60; GLUCOSE,RANDOM 86 mg/dL (65-105); POTASSIUM 3.6 MMOL/L (3.6-5.0); SODIUM 139 mmol/l (132-148)
[2017-06-28] MEDS: Pantoprazole 40 mg EC Tab PO SCH (08:29)
[2017-06-28] MEDS: Potassium Chloride 20 mEq ER Tab PO SCH (08:32)
--- NOTE | 2017-06-28 11:11 | CP.PCM.PN ---
Subjective - Date & Time of Evaluation Date of Evaluation: 06/28/17 Time of Evaluation: 11:00 - Subjective Subjective: The patient was seen and examined at bedside this morning. She reports her breathing is improved somewhat. She appears comfortable. No acute events overnight reported by patient or nursing staff. I discussed discharge planning with the family- they're planning for the patient to go to [facility] assisted living facility at [place] which is being set up with the medical social consultant. Patient denies headache, chest pain, palpitations, nausea, vomiting. Objective - Vital Signs/Intake and Output Vital Signs (last 24 hours): Temp Pulse Resp BP Pulse Ox 98.8 F 102 H 18 117/74 94 L 06/28/17 08:00 06/28/17 10:59 06/28/17 08:00 06/28/17 10:59 06/28/17 08:00 - Medications Medications: Current Medications Acetaminophen (Tylenol 325mg Tab) 650 mg PO Q6 PRN PRN Reason: Fever >100.4 F Last Admin: 06/26/17 18:50 Dose: 650 mg Albuterol Sulfate (Albuterol 0.083% Inhal Pippa (2.5 Mg/3 Ml) Ud) 2.5 mg INH RQ6 PRN PRN Reason: Shortness of Breath Last Admin: 06/26/17 18:51 Dose: 2.5 mg Apixaban (Eliquis) 2.5 mg PO BID [facility] PRN Reason: Protocol Last Admin: 06/28/17 08:28 Dose: 2.5 mg Clonazepam (Klonopin) 0.5 mg PO DAILY [facility] Last Admin: 06/28/17 08:32 Dose: 0.5 mg Diltiazem HCl (Cardizem) 60 mg PO Q6 [facility] Last Admin: 06/28/17 10:59 Dose: 60 mg Docusate Sodium (Colace) 100 mg PO BID [facility] Last Admin: 06/28/17 08:28 Dose: 100 mg Furosemide (Lasix) 40 mg PO DAILY [facility] Levothyroxine Sodium (Synthroid) 88 mcg PO DAILY@0630 [facility] Last Admin: 06/28/17 05:39 Dose: 88 mcg Megestrol Acetate (Megace) 40 mg PO BID [facility] Last Admin: 06/28/17 08:29 Dose: 40 mg Metoprolol Tartrate (Lopressor) 25 mg PO Q12 [facility] Last Admin: 06/28/17 08:29 Dose: 25 mg Ondansetron HCl (Zofran Inj) 4 mg IVP Q6 PRN PRN Reason: Nausea/Vomiting Pantoprazole Sodium (Protonix Ec Tab) 40 mg PO DAILY [facility] Last Admin: 06/28/17 08:29 Dose: 40 mg Potassium Chloride (K-Dur 20 Meq Er Tab) 20 meq PO DAILY [facility] Last Admin: 06/28/17 08:32 Dose: 20 meq Pravastatin Sodium (Pravachol) 20 mg PO DAILY@1800 [facility] Last Admin: 06/26/17 21:21 Dose: Not Given Trazodone HCl (Desyrel) 50 mg PO HS [facility] Last Admin: 06/27/17 21:14 Dose: 50 mg - Labs Labs: 06/28/17 07:00 06/28/17 06:30 - Additional Findings Additional findings: Physical exam: Constitutional- cooperative, awake, alert. Head- NCAT, PERRL Eye- PERRL, normal accommodation ENT- normal exam, MMM. Neck- supple, + JVD Respiratory- CTAB, + Bibasilar rales, improved somewhat since yesterday, no wheezes or rhonchi Cardiovascular- irregular rate and rhythm, + systolic ejection murmur radiating into the carotids GI/Abdominal- normal bowel sounds, soft, no mass, no hsm Skin- warm, dry- sun damage, multiple small skin lesions. Extremities Exam- normal capillary refill, normal inspection Neurological Exam- alert, CX II-XII intact Psych- normal mood, normal affect Assessment and Plan - Assessment and Plan (Free Text) Plan: Assessment: 82 yo female with history of Chronic AFib, CHF, s/p ppm, COPD on home o2 , HTN, HLD, anxiety, and Hypothyroidism was initially admitted at [facility] because of nausea and vomiting found later to have non-bleeding gastric ulcer on endoscopy. She was managed with Protonix and did well. She was brought to TCU for therapy for deconditioning and tolerated PT well; however patient was transferred to telemetry after [employer] on 06/27 due to atrial fibrillation with rapid ventricular response and hypotension, along with hypervolemia secondary to worsening CHF. Her fluid status is continuing improving today and her heart rate is continuing to be controlled with Cardizem and Lopressor ordered by cardiology. She is hemodynamically stable at this time. 1.AFib with RVR rate uncontrolled Started on cardizem drip Cardiology consulted Dr. Ewing on Eliquis 2.5mg PO BID trop negative 2.CHF exacerbation, slowly improving with rales bilaterally Echocardiogram reveals significant aortic stenosis and severe LV dysfunction with an ejection fraction of 15% along with MT and TR with severe pulmonary hypertension and atrial fibrillation Hold IVF Will again give Lasix 20 mg IV today to continue gentle diuresis- will start her back on her Lasix 40 mg PO daily tomorrow. CXR showed increased fluid effusion to right base - patient refuses further interventions for drainage 3.Hypotension- resolved at this time hold NS due to CHF exacerbation - Continue Lopressor and Cardizem for rate control - Hold all other antihypertensives 4.VICENTE- improved improving with fluids to 42/1 Continue to monitor 5. Anemia Most likely chronic anemia Hg 9.4 today stable 6.COPD Duoneb q 4hrs prn for wheezing or SOB Continue O2 via nasal cannula patient is on home O2 7.Gastric Ulcer continue Protonix 8. Anxiety on clonazepam 9. Hypothyroidism on Synthroid 10. DVt prophylaxis SCD on Eliquis Code Status; DNR/ DNI
[2017-06-28] MEDS: Pravastatin Sodium 20 MG TAB PO SCH (16:59)
--- NOTE | 2017-06-28 18:15 | CP.PCM.PN ---
Subjective - Date & Time of Evaluation Date of Evaluation: 06/28/17 Time of Evaluation: 06:00 - Subjective Subjective: Continues to be moderately dyspnoic in spite of controlled HR and diuretics HR 78 BPM/A Fib BP 114/70 mm Hg JVP mildly elevated No pedal oedema Extremities cool to touch Few basal rales present Pt has severe CHF secondary to multiple valvular dysfunction ( being the main one) and CHF Pt indicates she is aware of her poor prognosis Pt and family have requested DNR Objective - Vital Signs/Intake and Output Vital Signs (last 24 hours): Temp Pulse Resp BP Pulse Ox 98.3 F 95 H 17 113/79 95 06/28/17 16:55 06/28/17 16:54 06/28/17 16:10 06/28/17 16:54 06/28/17 16:10 - Medications Medications: Current Medications Acetaminophen (Tylenol 325mg Tab) 650 mg PO Q6 PRN PRN Reason: Fever >100.4 F Last Admin: 06/26/17 18:50 Dose: 650 mg Acetaminophen (Tylenol 325mg Tab) 650 mg PO Q6 PRN PRN Reason: Pain, Mild (1-3) Last Admin: 06/28/17 16:55 Dose: 650 mg Albuterol Sulfate (Albuterol 0.083% Inhal Pippa (2.5 Mg/3 Ml) Ud) 2.5 mg INH RQ6 PRN PRN Reason: Shortness of Breath Last Admin: 06/26/17 18:51 Dose: 2.5 mg Apixaban (Eliquis) 2.5 mg PO BID [facility] PRN Reason: Protocol Last Admin: 06/28/17 16:55 Dose: 2.5 mg Clonazepam (Klonopin) 0.5 mg PO DAILY [facility] Last Admin: 06/28/17 08:32 Dose: 0.5 mg Diltiazem HCl (Cardizem) 60 mg PO Q6 [facility] Last Admin: 06/28/17 16:54 Dose: 60 mg Docusate Sodium (Colace) 100 mg PO BID [facility] Last Admin: 06/28/17 16:54 Dose: 100 mg Furosemide (Lasix) 40 mg PO DAILY [facility] Levothyroxine Sodium (Synthroid) 88 mcg PO DAILY@0630 [facility] Last Admin: 06/28/17 05:39 Dose: 88 mcg Megestrol Acetate (Megace) 40 mg PO BID [facility] Last Admin: 06/28/17 16:55 Dose: 40 mg Metoprolol Tartrate (Lopressor) 25 mg PO Q12 [facility] Last Admin: 06/28/17 08:29 Dose: 25 mg Ondansetron HCl (Zofran Inj) 4 mg IVP Q6 PRN PRN Reason: Nausea/Vomiting Pantoprazole Sodium (Protonix Ec Tab) 40 mg PO DAILY [facility] Last Admin: 06/28/17 08:29 Dose: 40 mg Potassium Chloride (K-Dur 20 Meq Er Tab) 20 meq PO DAILY [facility] Last Admin: 06/28/17 08:32 Dose: 20 meq Pravastatin Sodium (Pravachol) 20 mg PO DAILY@1800 [facility] Last Admin: 06/28/17 16:59 Dose: 20 mg Trazodone HCl (Desyrel) 50 mg PO HS [facility] Last Admin: 06/27/17 21:14 Dose: 50 mg - Labs Labs: 06/28/17 07:00 06/28/17 06:30
[2017-06-29 05:40] LABS: BLOOD UREA NITROGEN 27 mg/dl (7-17); CALCIUM 8.4 mg/dL (8.4-10.2); CARBON DIOXIDE 25 mmol/L (22-30); CHLORIDE 103 mmol/L (98-107); GFR AFRICAN-AMERICAN > 60; GLUCOSE,RANDOM 90 mg/dL (65-105); POTASSIUM 4.2 MMOL/L (3.6-5.0); SODIUM 138 mmol/l (132-148)
[2017-06-29 05:41] LABS: HEMATOCRIT 30.1 % (34.0-47.0); MEAN CELL VOLUME 85.3 fl (81.0-99.0); MEAN CORPUSCULAR HEMOGLOBIN 27.4 pg (27.0-31.0); MEAN CORPUSCULAR HGB CONC 32.1 g/dL (33.0-37.0); RED CELL DISTRIBUTION WIDTH 18.1 % (11.5-14.5); WHITE BLOOD COUNT 7.2 K/uL (4.8-10.8)
[2017-06-29] MEDS: Levothyroxine 88 MCG TAB PO SCH (06:28)
--- NOTE | 2017-06-29 09:21 | RAD ---
PROCEDURE: CHEST RADIOGRAPH, 1 VIEW HISTORY: pleural effusions COMPARISON: 06/26/2017 FINDINGS: LUNGS: Right basilar opacity, likely due to pleural effusion. Cannot exclude superimposed atelectasis/infiltrate. No other infiltrate elsewhere. PLEURA: Small to moderate right pleural effusion. No evidence of left pleural effusion. No pneumothorax. CARDIOVASCULAR: Normal heart size. Mild congestive change is again noted. Permanent pacemaker. Right subclavian central venous catheter terminating in the superior vena cava. OSSEOUS STRUCTURES: No significant abnormalities. VISUALIZED UPPER ABDOMEN: Normal. OTHER FINDINGS: None. IMPRESSION: Right pleural effusion. Mild congestive change. No definite infiltrate. Right central venous catheter and permanent pacemaker are again noted.
[2017-06-29] MEDS: Potassium Chloride 20 mEq ER Tab PO SCH (10:22)
[2017-06-29] MEDS: Pantoprazole 40 mg EC Tab PO SCH (10:25)
--- NOTE | 2017-06-29 16:33 | CP.PCM.PN ---
Subjective - Date & Time of Evaluation Date of Evaluation: 06/29/17 Time of Evaluation: 10:00 - Subjective Subjective: Patient seen and examined bedside.Sitting in chair still with dyspnea at rest . Afib on monitor but rate controlled at present HR 101. Daughter present. daughter at patient aware of poor prognosis and wants Hospice comfort care Objective - Vital Signs/Intake and Output Vital Signs (last 24 hours): Temp Pulse Resp BP Pulse Ox 97.4 F L 104 H 20 108/72 93 L 06/29/17 12:00 06/29/17 16:29 06/29/17 12:00 06/29/17 16:29 06/29/17 12:00 - Medications Medications: Current Medications Acetaminophen (Tylenol 325mg Tab) 650 mg PO Q6 PRN PRN Reason: Fever >100.4 F Last Admin: 06/26/17 18:50 Dose: 650 mg Acetaminophen (Tylenol 325mg Tab) 650 mg PO Q6 PRN PRN Reason: Pain, Mild (1-3) Last Admin: 06/28/17 16:55 Dose: 650 mg Albuterol Sulfate (Albuterol 0.083% Inhal Pippa (2.5 Mg/3 Ml) Ud) 2.5 mg INH RQ6 PRN PRN Reason: Shortness of Breath Last Admin: 06/26/17 18:51 Dose: 2.5 mg Apixaban (Eliquis) 2.5 mg PO BID [facility] PRN Reason: Protocol Last Admin: 06/29/17 16:29 Dose: 2.5 mg Clonazepam (Klonopin) 0.5 mg PO DAILY [facility] Last Admin: 06/29/17 09:24 Dose: 0.5 mg Diltiazem HCl (Cardizem) 60 mg PO Q6 [facility] Last Admin: 06/29/17 16:29 Dose: 60 mg Docusate Sodium (Colace) 100 mg PO BID [facility] Last Admin: 06/29/17 16:30 Dose: 100 mg Furosemide (Lasix) 40 mg PO DAILY [facility] Last Admin: 06/29/17 10:23 Dose: 40 mg Levothyroxine Sodium (Synthroid) 88 mcg PO DAILY@0630 [facility] Last Admin: 06/29/17 06:28 Dose: 88 mcg Megestrol Acetate (Megace) 40 mg PO BID [facility] Last Admin: 06/29/17 16:31 Dose: 40 mg Metoprolol Tartrate (Lopressor) 25 mg PO Q12 [facility] Last Admin: 06/29/17 10:25 Dose: 25 mg Ondansetron HCl (Zofran Inj) 4 mg IVP Q6 PRN PRN Reason: Nausea/Vomiting Pantoprazole Sodium (Protonix Ec Tab) 40 mg PO DAILY [facility] Last Admin: 06/29/17 10:25 Dose: 40 mg Potassium Chloride (K-Dur 20 Meq Er Tab) 20 meq PO DAILY [facility] Last Admin: 06/29/17 10:22 Dose: 20 meq Pravastatin Sodium (Pravachol) 20 mg PO DAILY@1800 [facility] Last Admin: 06/28/17 16:59 Dose: 20 mg Trazodone HCl (Desyrel) 50 mg PO HS [facility] Last Admin: 06/28/17 21:40 Dose: 50 mg - Labs Labs: 06/29/17 04:55 06/29/17 04:55 - Constitutional Appears: Chronically Ill, Other (with dyspnea at rest ) - Head Exam Head Exam: ATRAUMATIC, NORMOCEPHALIC - Eye Exam Eye Exam: PERRL Pupil Exam: NORMAL ACCOMODATION - ENT Exam ENT Exam: Mucous Membranes Moist, Normal Exam - Neck Exam Neck Exam: Normal Inspection - Respiratory Exam Respiratory Exam: Accessory Muscle Use, Decreased Breath Sounds, Prolonged Expiratory Phase, Rales (bibasilar ), Rhonchi, Respiratory Distress. absent: Wheezes - Cardiovascular Exam Cardiovascular Exam: Tachycardia, Irregular Rhythm. absent: JVD - GI/Abdominal Exam GI & Abdominal Exam: Soft, Normal Bowel Sounds. absent: Distended, Guarding, Tenderness, Rebound - Rectal Exam Rectal Exam: Deferred - Extremities Exam Extremities Exam: absent: Calf Tenderness, Pedal Edema - Back Exam Back Exam: NORMAL INSPECTION - Neurological Exam Neurological Exam: Alert, Awake, CN II-XII Intact, Oriented x3 - Psychiatric Exam Psychiatric exam: Flat Affect - Skin Skin Exam: Dry, Pallor, Warm Assessment and Plan - Assessment and Plan (Free Text) Assessment: 82 yo female with history of Chronic AFib, CHF, s/p ppm, COPD on home o2 , HTN, HLD, anxiety, and Hypothyroidism was initially admitted at [facility] because of nausea and vomiting found later to have non-bleeding gastric ulcer on endoscopy. She was managed with Protonix and did well. She was brought to TCU for therapy for deconditioning and tolerated PT well; however patient was transferred to telemetry after [employer] on 06/27 due to atrial fibrillation with rapid ventricular response and hypotension, along with hypervolemia secondary to worsening CHF. Her Echo showed severely impaired LVF with EF 15% , severe and MR . Patient has very poor prognosis and has decided to continue withn comfort care. 1.AFib with RVR rate better uncontrolled today continue cardizem and Metoprolol Cardiology consulted Dr. Ewing on Eliquis 2.5mg PO BID poor prognosis will d/c on hospice 2.Severe acute on chronic , systolic and diastolic heart failure with EF 15 %, most likely secondary to multi valvular disease with poor prognosis Echocardiogram reveals significant aortic stenosis and severe LV dysfunction with an ejection fraction of 15% along with MT and TR with severe pulmonary hypertension and atrial fibrillation Hold IVF continue gentle diuresis patient is DNR/DNI. will d/c to hospice 3. Hypotension- resolved at this time hold NS due to CHF exacerbation Continue Lopressor and Cardizem for rate control Hold all other antihypertensives 4.VICENTE- improved with fluids 5. Anemia Most likely chronic anemia Hg 9.4 today stable 6.COPD Duoneb q 4hrs prn for wheezing or SOB Continue O2 via nasal cannula and d/c high flow O2 patient is on home O2 7.Gastric Ulcer continue Protonix 8. Anxiety on clonazepam 9. Hypothyroidism on Synthroid 10. DVt prophylaxis SCD on Eliquis Code Status; DNR/ DNI
[2017-06-29] MEDS: Pravastatin Sodium 20 MG TAB PO SCH (18:15)
[2017-06-30] MEDS: Levothyroxine 88 MCG TAB PO SCH (05:58)
[2017-06-30] MEDS: Potassium Chloride 20 mEq ER Tab PO SCH (08:29)
[2017-06-30] MEDS: Pantoprazole 40 mg EC Tab PO SCH (08:32)
--- NOTE | 2017-06-30 11:37 | CP.PCM.PN ---
Subjective - Date & Time of Evaluation Date of Evaluation: 06/30/17 Time of Evaluation: 10:00 - Subjective Subjective: The patient was seen and examined at bedside. The patient is continuing to have dyspnea at rest. The daughter present at bedside. Family is aware of her poor prognosis. 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 No acute events overnight reported by nursing staff. She has no other complaints currently. Objective - Vital Signs/Intake and Output Vital Signs (last 24 hours): Temp Pulse Resp BP Pulse Ox 98.3 F 117 H 20 130/79 95 06/30/17 08:00 06/30/17 08:30 06/30/17 08:00 06/30/17 08:30 06/30/17 08:00 - Medications Medications: Current Medications Acetaminophen (Tylenol 325mg Tab) 650 mg PO Q6 PRN PRN Reason: Fever >100.4 F Last Admin: 06/26/17 18:50 Dose: 650 mg Acetaminophen (Tylenol 325mg Tab) 650 mg PO Q6 PRN PRN Reason: Pain, Mild (1-3) Last Admin: 06/30/17 10:52 Dose: 650 mg Albuterol Sulfate (Albuterol 0.083% Inhal Pippa (2.5 Mg/3 Ml) Ud) 2.5 mg INH RQ6 PRN PRN Reason: Shortness of Breath Last Admin: 06/26/17 18:51 Dose: 2.5 mg Apixaban (Eliquis) 2.5 mg PO BID [facility] PRN Reason: Protocol Last Admin: 06/30/17 08:29 Dose: 2.5 mg Clonazepam (Klonopin) 0.5 mg PO DAILY [facility] Last Admin: 06/30/17 08:36 Dose: 0.5 mg Diltiazem HCl (Cardizem) 60 mg PO Q6 [facility] Last Admin: 06/30/17 08:27 Dose: 60 mg Docusate Sodium (Colace) 100 mg PO BID [facility] Last Admin: 06/30/17 08:28 Dose: 100 mg Furosemide (Lasix) 40 mg PO DAILY [facility] Last Admin: 06/30/17 08:30 Dose: 40 mg Levothyroxine Sodium (Synthroid) 88 mcg PO DAILY@0630 [facility] Last Admin: 06/30/17 05:58 Dose: 88 mcg Megestrol Acetate (Megace) 40 mg PO BID [facility] Last Admin: 06/30/17 08:31 Dose: 40 mg Metoprolol Tartrate (Lopressor) 25 mg PO Q12 [facility] Last Admin: 06/30/17 08:30 Dose: 25 mg Ondansetron HCl (Zofran Inj) 4 mg IVP Q6 PRN PRN Reason: Nausea/Vomiting Pantoprazole Sodium (Protonix Ec Tab) 40 mg PO DAILY [facility] Last Admin: 06/30/17 08:32 Dose: 40 mg Potassium Chloride (K-Dur 20 Meq Er Tab) 20 meq PO DAILY [facility] Last Admin: 06/30/17 08:29 Dose: 20 meq Pravastatin Sodium (Pravachol) 20 mg PO DAILY@1800 [facility] Last Admin: 06/29/17 18:15 Dose: 20 mg Trazodone HCl (Desyrel) 50 mg PO HS [facility] Last Admin: 06/29/17 21:27 Dose: 50 mg - Labs Labs: 06/29/17 04:55 06/29/17 04:55 - Additional Findings Additional findings: Physical exam: Constitutional- cooperative, awake, alert. Head- NCAT, PERRL. NC in place Eye- PERRL, normal accommodation ENT- normal exam, MMM. Neck- supple, + JVD Respiratory- CTAB, + Bibasilar rales, no wheezes or rhonchi Cardiovascular- irregular rate and rhythm, + systolic ejection murmur radiating into the carotids GI/Abdominal- normal bowel sounds, soft, no mass, no hsm Skin- warm, dry- sun damage, multiple small skin lesions. Extremities Exam- normal capillary refill, normal inspection Neurological Exam- alert, CX II-XII intact Psych- normal mood, normal affect Assessment and Plan - Assessment and Plan (Free Text) Plan: Assessment: This is 82 year old female with history of Chronic AFib, CHF, s/p ppm, COPD on home o2 , HTN, HLD, anxiety, and Hypothyroidism was initially admitted at [facility] because of nausea and vomiting found later to have non-bleeding gastric ulcer on endoscopy. She was managed with Protonix and did well. 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 Her Echo showed severely impaired LVF with EF 15% , severe and MR . Patient has very poor prognosis and has decided to continue with comfort care. She is DNR/DNI. Awaiting placement for residential hospice. No acute events overnight. 1.AFib with RVR rate better uncontrolled today continue cardizem and Metoprolol Cardiology consulted Dr. Ewing on Eliquis 2.5mg PO BID poor prognosis will d/c on hospice 2.Severe acute on chronic , systolic and diastolic heart failure with EF 15 %, most likely secondary to multi valvular disease with poor prognosis Echocardiogram reveals significant aortic stenosis and severe LV dysfunction with an ejection fraction of 15% along with MT and TR with severe pulmonary hypertension and atrial fibrillation Hold IVF continue diuresis with Lasix 40 mg po daily patient is DNR/DNI. will d/c to hospice 3. Hypotension- resolved at this time hold NS due to CHF exacerbation Continue Lopressor and Cardizem for rate control Hold all other antihypertensives 4.VICENTE- improved with fluids 5. Anemia Most likely chronic anemia Hg 9.4 today stable 6.COPD Duoneb q 4hrs prn for wheezing or SOB Continue O2 via nasal cannula and d/c high flow O2 patient is on home O2 7.Gastric Ulcer continue Protonix 8. Anxiety on clonazepam 9. Hypothyroidism on Synthroid 10. DVt prophylaxis SCD on Eliquis Code Status; DNR/ DNI
[2017-06-30] MEDS: Pravastatin Sodium 20 MG TAB PO SCH (17:00)
[2017-07-01 00:06] VITALS: O2SAT 96
[2017-07-01] MEDS: Levothyroxine 88 MCG TAB PO SCH (04:58)
[2017-07-01 06:14] LABS: HEMATOCRIT 30.5 % (34.0-47.0); MEAN CELL VOLUME 84.9 fl (81.0-99.0); MEAN CORPUSCULAR HEMOGLOBIN 26.7 pg (27.0-31.0); MEAN CORPUSCULAR HGB CONC 31.4 g/dL (33.0-37.0); RED CELL DISTRIBUTION WIDTH 18.3 % (11.5-14.5); WHITE BLOOD COUNT 6.6 K/uL (4.8-10.8)
[2017-07-01 08:00] VITALS: BP 116/74; PULSE 109; TEMP 98.8
--- NOTE | 2017-07-01 08:51 | CP.PCM.PN ---
Subjective - Date & Time of Evaluation Date of Evaluation: 07/01/17 Time of Evaluation: 08:50 - Subjective Subjective: Patient seen and evaluated bedside. Chronically ill female lying in bed in baseline respiratory distress with prolonged expiratory phase.Afib on monitor rate controlled. No acute issues overnight. waiting for hospice transfer Objective - Vital Signs/Intake and Output Vital Signs (last 24 hours): Temp Pulse Resp BP Pulse Ox 98.8 F 109 H 20 116/74 96 07/01/17 08:00 07/01/17 08:00 07/01/17 08:29 07/01/17 08:00 07/01/17 08:00 - Medications Medications: Current Medications Acetaminophen (Tylenol 325mg Tab) 650 mg PO Q6 PRN PRN Reason: Fever >100.4 F Last Admin: 06/30/17 19:42 Dose: 650 mg Acetaminophen (Tylenol 325mg Tab) 650 mg PO Q6 PRN PRN Reason: Pain, Mild (1-3) Last Admin: 06/30/17 19:40 Dose: 650 mg Albuterol Sulfate (Albuterol 0.083% Inhal Pippa (2.5 Mg/3 Ml) Ud) 2.5 mg INH RQ6 PRN PRN Reason: Shortness of Breath Last Admin: 06/26/17 18:51 Dose: 2.5 mg Apixaban (Eliquis) 2.5 mg PO BID [facility] PRN Reason: Protocol Last Admin: 06/30/17 16:59 Dose: 2.5 mg Clonazepam (Klonopin) 0.5 mg PO DAILY [facility] Last Admin: 06/30/17 08:36 Dose: 0.5 mg Diltiazem HCl (Cardizem) 60 mg PO Q6 [facility] Last Admin: 07/01/17 04:54 Dose: 60 mg Docusate Sodium (Colace) 100 mg PO BID [facility] Last Admin: 06/30/17 16:59 Dose: 100 mg Furosemide (Lasix) 40 mg PO DAILY [facility] Last Admin: 06/30/17 08:30 Dose: 40 mg Levothyroxine Sodium (Synthroid) 88 mcg PO DAILY@0630 [facility] Last Admin: 07/01/17 04:58 Dose: 88 mcg Megestrol Acetate (Megace) 40 mg PO BID [facility] Last Admin: 06/30/17 16:59 Dose: 40 mg Metoprolol Tartrate (Lopressor) 25 mg PO Q12 [facility] Last Admin: 06/30/17 21:25 Dose: 25 mg Ondansetron HCl (Zofran Inj) 4 mg IVP Q6 PRN PRN Reason: Nausea/Vomiting Pantoprazole Sodium (Protonix Ec Tab) 40 mg PO DAILY [facility] Last Admin: 06/30/17 08:32 Dose: 40 mg Potassium Chloride (K-Dur 20 Meq Er Tab) 20 meq PO DAILY [facility] Last Admin: 06/30/17 08:29 Dose: 20 meq Pravastatin Sodium (Pravachol) 20 mg PO DAILY@1800 [facility] Last Admin: 06/30/17 17:00 Dose: 20 mg Trazodone HCl (Desyrel) 50 mg PO HS [facility] Last Admin: 06/30/17 21:26 Dose: 50 mg - Labs Labs: 07/01/17 05:35 06/29/17 04:55 - Constitutional Appears: Chronically Ill, Other (mild respiratory distress) - Head Exam Head Exam: ATRAUMATIC, NORMAL INSPECTION, NORMOCEPHALIC - Eye Exam Eye Exam: EOMI, Normal appearance, PERRL Pupil Exam: NORMAL ACCOMODATION - ENT Exam ENT Exam: Mucous Membranes Moist, Normal Exam - Neck Exam Neck Exam: Normal Inspection - Respiratory Exam Respiratory Exam: Accessory Muscle Use, Decreased Breath Sounds (bibasilar ), Prolonged Expiratory Phase, Rhonchi, Respiratory Distress. absent: Wheezes - Cardiovascular Exam Cardiovascular Exam: Irregular Rhythm. absent: JVD - GI/Abdominal Exam GI & Abdominal Exam: Soft, Normal Bowel Sounds. absent: Distended, Guarding, Tenderness, Rebound - Rectal Exam Rectal Exam: Deferred - Extremities Exam Extremities Exam: Full ROM, Normal Capillary Refill, Normal Inspection. absent : Pedal Edema - Back Exam Back Exam: NORMAL INSPECTION - Neurological Exam Neurological Exam: Alert, Awake, CN II-XII Intact, Oriented x3 - Psychiatric Exam Psychiatric exam: Normal Affect - Skin Skin Exam: Dry, Pallor, Warm Assessment and Plan - Assessment and Plan (Free Text) Assessment: 82 yo female with history of Chronic AFib, CHF, s/p ppm, COPD on home O2 , HTN, HLD, anxiety, and Hypothyroidism was initially admitted at [facility] because of nausea and vomiting found later to have non-bleeding gastric ulcer on endoscopy. She was managed with Protonix and did well. 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 Her Echo showed severely impaired LVF with EF 15% , severe and MR . Patient has very poor prognosis and has decided to continue with comfort care. Waiting for [facility] transfer 1.AFib with RVR rate better controlled continue cardizem and Metoprolol Cardiology consulted Dr. Ewing on Eliquis 2.5mg PO BID poor prognosis will d/c on hospice 2.Severe acute on chronic , systolic and diastolic heart failure with EF 15 %, most likely secondary to multi valvular disease with poor prognosis Echocardiogram reveals significant aortic stenosis and severe LV dysfunction with an ejection fraction of 15% along with MT and TR with severe pulmonary hypertension and atrial fibrillation Hold IVF continue gentle diuresis patient is DNR/DNI. will d/c to hospice 3. Hypotension- resolved at this time hold NS due to CHF exacerbation Continue Lopressor and Cardizem for rate control Hold all other antihypertensives 4.VICENTE- improved with fluids 5. Anemia Most likely chronic anemia Hg 9.4 today stable 6.COPD Duoneb q 4hrs prn for wheezing or SOB Continue O2 via nasal cannula and d/c high flow O2 patient is on home O2 7.Gastric Ulcer continue Protonix 8. Anxiety on clonazepam 9. Hypothyroidism on Synthroid 10. DVt prophylaxis SCD on Eliquis Code Status; DNR/ DNI
--- NOTE | 2017-07-01 09:07 | CP.PCM.DIS ---
Provider - Provider Date of Admission: 06/25/17 10:36 Attending physician: Sofya Cowart DO Primary care physician: None Consults: cardiology consult Time Spent in preparation of Discharge (in minutes): 15 Hospital Course - Lab Results Lab Results: Most Recent Lab Values WBC 6.6 K/uL (4.8-10.8) 07/01/17 05:35 RBC 3.59 Mil/uL (3.80-5.20) L 07/01/17 05:35 Hgb 9.6 g/dL (12.0-16.0) L 07/01/17 05:35 Hct 30.5 % (34.0-47.0) L 07/01/17 05:35 MCV 84.9 fl (81.0-99.0) 07/01/17 05:35 MCH 26.7 pg (27.0-31.0) L 07/01/17 05:35 MCHC 31.4 g/dL (33.0-37.0) L 07/01/17 05:35 RDW 18.3 % (11.5-14.5) H 07/01/17 05:35 Plt Count 324 K/uL (130-400) 07/01/17 05:35 pCO2 28 mm/Hg (35-45) L 06/26/17 19:10 pO2 60 mm/Hg (80-100) L 06/26/17 19:10 HCO3 21.6 mmol/L (21-28) 06/26/17 19:10 ABG pH 7.44 (7.35-7.45) 06/26/17 19:10 ABG Total CO2 19.9 mmol/L (22-28) L 06/26/17 19:10 ABG O2 Saturation 94.8 % (95-98) L 06/26/17 19:10 ABG O2 Content 13.9 ML/dL (15-23) L 06/26/17 19:10 ABG Base Excess -4.1 mmol/L (-2.0-3.0) L 06/26/17 19:10 ABG Hemoglobin 10.8 g/dL (11.7-17.4) L 06/26/17 19:10 ABG Carboxyhemoglobin 2.2 % (0.5-1.5) H 06/26/17 19:10 POC ABG HHb (Measured) 5.0 % (0.0-5.0) 06/26/17 19:10 ABG Methemoglobin 1.5 % (0.0-3.0) 06/26/17 19:10 ABG O2 Capacity 14.7 mL/dL (16-24) L 06/26/17 19:10 Juaquin Test Yes 06/26/17 19:10 A-a O2 Difference 162.0 mm/Hg 06/26/17 19:10 Hgb O2 Saturation 91.3 % (95.0-98.0) L 06/26/17 19:10 Vent Mode 4l nc 06/26/17 19:10 FiO2 36.0 % 06/26/17 19:10 Sodium 138 mmol/l (132-148) 06/29/17 04:55 Potassium 4.2 MMOL/L (3.6-5.0) 06/29/17 04:55 Chloride 103 mmol/L (98-107) 06/29/17 04:55 Carbon Dioxide 25 mmol/L (22-30) 06/29/17 04:55 Anion Gap 14 (10-20) 06/29/17 04:55 BUN 27 mg/dl (7-17) H 06/29/17 04:55 Creatinine 0.9 mg/dL (0.7-1.2) 06/29/17 04:55 Est GFR ( Amer) > 60 06/29/17 04:55 Est GFR (Non-Af Amer) 60 06/29/17 04:55 Random Glucose 90 mg/dL (65-105) 06/29/17 04:55 Calcium 8.4 mg/dL (8.4-10.2) 06/29/17 04:55 Magnesium 1.9 MG/DL (1.6-2.3) 06/27/17 14:45 Troponin I 0.0220 ng/mL (0.00-0.120) 06/26/17 20:30 NT-Pro-B Natriuret Pep 6760 pg/ml (0-900) H 06/27/17 07:30 Digoxin 0.8 ng/mL (0.8-2.0) 06/26/17 04:30 - Hospital Course Hospital Course: 82 yo female with history of Chronic AFib, CHF, s/p ppm, COPD on home O2 , HTN, HLD, anxiety, and Hypothyroidism was initially admitted at [facility] because of nausea and vomiting found later to have non-bleeding gastric ulcer on endoscopy. She was managed with Protonix and did well. She was brought to TCU for therapy for deconditioning and tolerated PT well; however patient was transferred to telemetry after DIRECTOR CASE MANAGEMENT on 06/27 due to atrial fibrillation with rapid ventricular response and hypotension, along with hypervolemia secondary to worsening CHF. Her Echo showed severely impaired LVF with EF 15% , severe and MR . Patient has very poor prognosis and has decided to continue with comfort care. Waiting for [facility] transfer 1.AFib with RVR rate better controlled continue cardizem and Metoprolol Cardiology consulted Dr. Ewing on Eliquis 2.5mg PO BID poor prognosis will d/c on hospice 2.Severe acute on chronic , systolic and diastolic heart failure with EF 15 %, most likely secondary to multi valvular disease with poor prognosis Echocardiogram reveals significant aortic stenosis and severe LV dysfunction with an ejection fraction of 15% along with MT and TR with severe pulmonary hypertension and atrial fibrillation Hold IVF continue gentle diuresis patient is DNR/DNI. will d/c to hospice 3. Hypotension- resolved at this time hold NS due to CHF exacerbation Continue Lopressor and Cardizem for rate control Hold all other antihypertensives 4.VICENTE- improved with fluids 5. Anemia Most likely chronic anemia Hg 9.4 today stable 6.COPD Duoneb q 4hrs prn for wheezing or SOB Continue O2 via nasal cannula and d/c high flow O2 patient is on home O2 7.Gastric Ulcer continue Protonix 8. Anxiety on clonazepam 9. Hypothyroidism on Synthroid 10. DVt prophylaxis SCD on Eliquis Code Status; DNR/ DNI Discharge Exam - Head Exam Head Exam: ATRAUMATIC, NORMAL INSPECTION, NORMOCEPHALIC Additional comments: moderate respiratory distress - Eye Exam Pupil Exam: NORMAL ACCOMODATION - ENT Exam ENT Exam: Normal Exam - Neck Exam Neck exam: Full Rom, Normal Inspection - Respiratory Exam Respiratory Exam: Accessory Muscle Use, Prolonged Expiratory Phase, Rhonchi, Respiratory Distress. absent: Wheezes - Cardiovascular Exam Cardiovascular Exam: Irregular Rhythm. absent: JVD - GI/Abdominal Exam GI & Abdominal Exam: Normal Bowel Sounds, Soft. absent: Distended, Guarding, Rebound, Tenderness - Rectal Exam Rectal Exam: Deferred - Extremities Exam Extremities exam: normal capillary refill, normal inspection, pedal pulses present - Back Exam Back exam: NORMAL INSPECTION - Neurological Exam Neurological exam: Alert, CN II-XII Intact, Oriented x3 - Psychiatric Exam Psychiatric exam: Normal Affect - Skin Skin Exam: Dry, Pallor, Warm Discharge Plan - Follow Up Plan Condition: SERIOUS Disposition: HOSPICE - MEDICAL FACILITY Additional Instructions: discharge to hospice
[2017-07-01] MEDS: Pantoprazole 40 mg EC Tab PO SCH (10:01)
[2017-07-01] MEDS: Potassium Chloride 20 mEq ER Tab PO SCH (10:01)
[2017-07-01 11:16] VITALS: RESP 18
--- NOTE | 2017-07-01 13:12 | CARD ---
APPROVED REPORT EKG Measurement Heart [id number] <Conclusion> Atrial fibrillation with occasional ventricular-paced complexes Low voltage QRS Nonspecific ST and T wave abnormality Abnormal ECG
== END 2017-07-01 11:46 | disposition hospice, inpatient (51) | DRG 308 ==
LOC: H.ER 10:25 → H.ERHOLD 10:36 → H.TEL 12:54
PROVIDERS: ADMIT Student in an Organized Health Care Education/Training Program; ATTEND Student in an Organized Health Care Education/Training Program
DX: I48.2 Chronic atrial fibrillation (principal); I50.43 Acute on chronic combined systolic (congestive) and diastolic (congestive) heart failure; N17.9 Acute kidney failure, unspecified; I95.9 Hypotension, unspecified; Z99.81 Dependence on supplemental oxygen; I11.0 Hypertensive heart disease with heart failure; J44.9 Chronic obstructive pulmonary disease, unspecified; K25.9 Gastric ulcer, unspecified as acute or chronic, without hemorrhage or perforation; I27.20 Pulmonary hypertension, unspecified; I25.10 Atherosclerotic heart disease of native coronary artery without angina pectoris; E78.5 Hyperlipidemia, unspecified; I35.0 Nonrheumatic aortic (valve) stenosis; E03.9 Hypothyroidism, unspecified; D64.9 Anemia, unspecified; F41.9 Anxiety disorder, unspecified; Z51.5 Encounter for palliative care; Z66 Do not resuscitate; Z95.0 Presence of cardiac pacemaker; Z96.643 Presence of artificial hip joint, bilateral; M19.90 Unspecified osteoarthritis, unspecified site; K57.90 Diverticulosis of intestine, part unspecified, without perforation or abscess without bleeding; Z79.01 Long term (current) use of anticoagulants; Z87.11 Personal history of peptic ulcer disease; Z87.442 Personal history of urinary calculi; Z87.891 Personal history of nicotine dependence; Z87.01 Personal history of pneumonia (recurrent)

== ENCOUNTER 2017-07-01 12:05 | Inpatient (IN) | payer OTHER ==
[2017-07-01] MEDS ORDERED: Albuterol 0.083% Inhal Sol (2.5 mg/3 mL) UD INH PRN ×2 (12:22→12:43)
[2017-07-01] MEDS ORDERED: Morphine 15 mg SR Tab PO PRN (12:31)
[2017-07-01] MEDS ORDERED: Morphine 10 mg/5 ml Oral Soln PO PRN (13:14)
[2017-07-01] MEDS ORDERED: Morphine Sulfate 10 MG/0.5 ML SYR PO PRN (17:30)
[2017-07-02] MEDS ORDERED: Levothyroxine 88 MCG TAB PO SCH ×2 (06:30→09:00)
[2017-07-02 07:42] VITALS: BP 123/74; PULSE 132; RESP 22; TEMP 98; O2SAT 93
[2017-07-02] MEDS ORDERED: Potassium Chloride 20 mEq/15 ml LIQ UD PO SCH (09:00)
[2017-07-02] MEDS ORDERED: Potassium Chloride 20 mEq ER Tab PO SCH (09:00)
[2017-07-02] MEDS ORDERED: Pantoprazole 40 mg EC Tab PO SCH ×2 (09:00)
--- NOTE | 2017-07-02 14:17 | CP.PCM.HP ---
History of Present Illness - History of Present Illness History of Present Illness: CC: Shortness of breath. HPI: This is an 82-year-old female with a past medical history significant for CHF status post PPM, with an ejection fraction of less than 15%, severe aortic stenosis and mitral regurgitation, history of COPD, hypertension, hyperlipidemia , anxiety, and hypothyroidism, who was initially admitted to [facility] because of nausea and vomiting. On admission she was found to have a nonbleeding gastric ulcer on endoscopy. She was subsequently admitted to TCU at [facility] for deconditioning and physical therapy and occupational therapy. However on 06/25/2017, the patient had MANAGER PRODUCT SUPPORT called secondary for uncontrolled atrial fibrillation and hypotension with a systolic blood pressure ranging from 85-90. The patient was given normal saline boluses and IV digoxin initially and blood pressure improved. However, the patient continued to have ongoing shortness of breath. She was found to have significant pleural effusions. Her atrial fibrillation was rate controlled with Cardizem and metoprolol which she responded. Overall the patient has a very poor prognosis and decided to continue with comfort care. She refused any surgical interventions. Because of this, the patient was placed in hospice at this facility. She is to be transferred to inpatient hospice today.The patient continues to complain of shortness of breath and anxiety. Present on Admission - Present on Admission Any Indicators Present on Admission: No Review of Systems - Review of Systems Review of Systems: GENERAL/CONSTITUTIONAL: the patient admits to fatigue and weakness.The patient denies fever, weight gain or weight loss. HEAD, EYES, EARS, NOSE AND THROAT: Eyes - The patient denies pain, redness, loss of vision, double or blurred vision, flashing lights or spots, dryness, Ears, nose, mouth and throat. The patient denies ringing in the ears, loss of hearing, nosebleeds, loss of sense of smell, dry sinuses, sinusitis, post nasal drip, CARDIOVASCULAR: The patient denies chest pain, chest pressure, or irregular heartbeats, RESPIRATORY: the patient complains of ongoing shortness of breath and dry cough.The patient denies coughing up blood, coughing up mucus, wheezing. GASTROINTESTINAL: The patient denies decreased appetite, nausea, vomiting, vomiting blood or coffee ground material, heartburn, regurgitation, diarrhea, constipation, gas, blood in the stools, black tarry stools. GENITOURINARY: The patient denies difficult urination, pain or burning with urination, blood in the urine, frequency, or urgency MUSCULOSKELETAL: The patient denies arm, buttock, thigh or calf cramps. No joint or muscle pain. No muscle weakness or tenderness. No joint swelling, neck pain, back pain. SKIN: The patient denies easy bruising, skin redness, skin rash, hives, sensitivity to sun exposure, tightness, nodules or bumps, hair loss, color changes in the hands or feet with cold. NEUROLOGIC: The patient denies headache, dizziness, fainting, muscle spasm, loss of consciousness, sensitivity or pain in the hands and feet or memory loss. PSYCHIATRIC: positive for anxiety.The patient denies depression, or thoughts of suicide. ENDOCRINE: The patient denies intolerance to hot or cold temperature, flushing, fingernail changes, increased thirst, increased salt intake or decreased sexual desire. HEMATOLOGIC/LYMPHATIC: The patient denies anemia, bleeding tendency or clotting tendency. ALLERGIC/IMMUNOLOGIC: The patient denies rhinitis, asthma, skin sensitivity, latex allergies or sensitivity. Past Patient History - Infectious Disease Hx of Infectious Diseases: None - Tetanus Immunizations Tetanus Immunization: Unknown - Past Medical History & Family History Past Medical History?: Yes - Past Social History Smoking Status: Never Smoked - CARDIAC Hx Cardiac Disorders: Yes Hx Atrial Fibrillation: Yes Hx Cardia Arrhythmia: Yes Hx Congestive Heart Failure: Yes Hx Hypertension: Yes Hx Pacemaker: Yes - PULMONARY Hx Respiratory Disorders: Yes - NEUROLOGICAL Hx Neurological Disorder: No - HEENT Hx HEENT Problems: No - RENAL Hx Chronic Kidney Disease: No - ENDOCRINE/METABOLIC Hx Endocrine Disorders: Yes Hx Hypothyroidism: Yes - HEMATOLOGICAL/ONCOLOGICAL Hx Blood Disorders: No Hx Human Immunodeficiency Virus (HIV): No - INTEGUMENTARY Hx Dermatological Problems: No - MUSCULOSKELETAL/RHEUMATOLOGICAL Hx Musculoskeletal Disorders: Yes Hx Arthritis: Yes Hx Falls: No Hx Fractures: Yes (left hip arthoplasty(10 yrs ago)) - GASTROINTESTINAL Hx Gastrointestinal Disorders: Yes Hx Constipation: Yes - GENITOURINARY/GYNECOLOGICAL Hx Genitourinary Disorders: No - PSYCHIATRIC Hx Psychophysiologic Disorder: Yes Hx Anxiety: Yes Hx Substance Use: No - SURGICAL HISTORY Hx Surgeries: Yes Hx Joint Replacement: Yes (left THR, 2 yrs ago) Hx Orthopedic Surgery: Yes Other/Comment: Pacemaker/ Pleurex at right chest - ANESTHESIA Hx Anesthesia: Yes Hx Anesthesia Reactions: No Hx Malignant Hyperthermia: No Meds Home Medications: Home Medication List Medication Instructions Recorded Confirmed Type LORazepam [Ativan] 0.5 mg PO Q8H tab 07/02/17 Rx Levothyroxine [Synthroid] 88 mcg PO DAILY@0630 tab 07/02/17 Rx Morphine Sulfate 5 mg PO Q12 PRN syringe 07/02/17 Rx Allergies/Adverse Reactions: Allergies Allergy/AdvReac Type Severity Reaction Status Date / Time No Known Allergies Allergy Verified 06/10/17 18:16 Physical Exam - Additional Findings Additional findings: Physical exam: Constitutional- cooperative, awake, alert. appears anxious. Head- NCAT, PERRL Eye- PERRL, normal accommodation ENT- normal exam, MMM. Neck- normal inspection, supple, no JVD Respiratory- CTAB, no wheezes rales rhonchi Cardiovascular- RRR, +S1, +S2 no MRG GI/Abdominal- normal bowel sounds, soft, no mass, no hsm Skin- warm, dry Extremities Exam- normal capillary refill, normal inspection Neurological Exam- alert, stable gait Psych- normal mood, normal affect Results - Vital Signs Recent Vital Signs: Last Vital Signs Temp 98.0 F 07/02/17 07:41 Pulse 132 H 07/02/17 08:46 Resp 22 07/02/17 07:41 BP 123/74 07/02/17 08:46 Pulse Ox 93 L 07/02/17 07:41 Assessment & Plan - Assessment and Plan (Free Text) Plan: This is an 82-year-old female with a past medical history significant for CHF status post PPM, with an ejection fraction of less than 15%, severe aortic stenosis and mitral regurgitation, history of COPD, hypertension, hyperlipidemia , anxiety, and hypothyroidism, who is being admitted to inpatient hospice today as she has poor prognosis and wishes for comfort care. She will also be discharged to [facility] [place], [place] today. 1.AFib with RVR rate better controlled continue cardizem and Metoprolol Cardiology consulted Dr. Ewing on Eliquis 2.5mg PO BID poor prognosis Admission to inpatient hospice here. Will be discharged today to [facility] [place], [place] 2.Severe acute on chronic , systolic and diastolic heart failure with EF 15 %, most likely secondary to multi valvular disease with poor prognosis Echocardiogram reveals significant aortic stenosis and severe LV dysfunction with an ejection fraction of 15% along with MT and TR with severe pulmonary hypertension and atrial fibrillation Continue Lasix 40 mg po daily patient is DNR/DNI. 3. Hypotension- resolved Continue Lopressor and Cardizem for rate control Hold all other antihypertensives 4.VICENTE- improved with fluids 5. Anemia Most likely chronic anemia Hg 9.6 yesterday, at baseline stable 6.COPD Duoneb q 4hrs prn for wheezing or SOB Continue O2 via nasal cannula patient is on home O2 7.Gastric Ulcer continue Protonix 8. Anxiety on clonazepam 9. Hypothyroidism on Synthroid 10. DVT prophylaxis SCD on Eliquis
[2017-07-02] MEDS ORDERED: Pravastatin Sodium 20 MG TAB PO SCH (21:00)
== END 2017-07-02 14:53 | disposition hospice, inpatient (51) | DRG 293 ==
LOC: H.TEL 12:39 → H.MEDSURG1 16:52
PROVIDERS: ADMIT Hospitalist; ATTEND Hospitalist
PROC: 3E0F7GC Introduction of Other Therapeutic Substance into Respiratory Tract, Via Natural or Artificial Opening (ICD-10-PCS; principal; 2017-07-01)
DX: I11.0 Hypertensive heart disease with heart failure (principal); K25.9 Gastric ulcer, unspecified as acute or chronic, without hemorrhage or perforation; I95.9 Hypotension, unspecified; I48.91 Unspecified atrial fibrillation; J44.9 Chronic obstructive pulmonary disease, unspecified; D63.8 Anemia in other chronic diseases classified elsewhere; I50.43 Acute on chronic combined systolic (congestive) and diastolic (congestive) heart failure; I08.0 Rheumatic disorders of both mitral and aortic valves; E78.5 Hyperlipidemia, unspecified; E03.9 Hypothyroidism, unspecified; F41.9 Anxiety disorder, unspecified; Z51.5 Encounter for palliative care; Z96.642 Presence of left artificial hip joint; Z95.0 Presence of cardiac pacemaker